=== PATIENT | female | born 1970 | race Caucasian/White ===

== ENCOUNTER 2020-06-17 02:38 | Emergency (ER) | payer SELFPAY ==
[2020-06-17 02:49] VITALS: BP 144/92; PULSE 94; RESP 16; TEMP 37; O2SAT 100
--- NOTE | 2020-06-17 02:53 | ED.GENADULT ---
HPI - General Adult General Chief complaint: Headache Stated complaint: Migraine Time Seen by Provider: 06/17/20 02:52 History of Present Illness HPI narrative: Patient 49-year-old female who presents to emergency department with chief complaint of migraine headache. The patient reports she has prior history of migraines reports that she has been taking p.o. Tylenol and p.o. Zofran at home without relief. Patient reports this is her typical bad migraine I denies any focal neurological deficits states that it is not the worst headache of her life. Patient reports the pain is very severe at this time. Related Data Allergies Allergy/AdvReac Type Severity Reaction Status Date / Time codeine Allergy Rash Verified 06/17/20 03:02 meperidine [From Demerol] Allergy Rash Verified 06/17/20 03:02 NSAIDS (Non-Steroidal Allergy Rash Verified 06/17/20 03:02 Anti-Inflamma Sulfa (Sulfonamide Allergy Rash Verified 06/17/20 03:02 Antibiotics) Review of Systems Review of Systems: Narrative: A 10 system review of systems was completed on the patient and is negative except for what is stated in the HPI. Nursing and ancillary documentation was reviewed. PMFSH Comments Past medical history significant for migraine headaches Social history the patient denies illicit drug use Exam Narrative: Exam Narrative: GENERAL: Well-appearing, well-nourished, and in no acute distress. HEAD: Normocephalic, atraumatic. EYES: PERRLA and EOMI. ENT: Nares clear, no rhinorrhea or epistaxis. Mucous membranes moist. NECK: Supple. CHEST: Clear to auscultation. No respiratory distress. HEART: Regular rate and rhythm. No murmur heard. Normal peripheral pulses. ABDOMEN: Soft, nontender, nondistended, normal active bowel sounds. EXTREMITIES: Normal range of motion. No edema. SKIN: Warm, dry, no rash. NEURO: No focal deficits. Alert and oriented x3. PSYCH: Normal mood and affect. Course Vital Signs Vital signs: Vital Signs Temperature 37.0 C 06/17/20 02:49 Pulse Rate 94 06/17/20 02:49 Respiratory Rate 16 06/17/20 02:49 Blood Pressure 144/92 H 06/17/20 02:49 Pulse Oximetry 100 06/17/20 02:49 Temperature 37.0 C 06/17/20 02:49 Pulse Rate 94 06/17/20 02:49 Respiratory Rate 16 06/17/20 02:49 Blood Pressure 144/92 H 06/17/20 02:49 Pulse Oximetry 100 06/17/20 02:49 Medical Decision Making Vital Signs Vital Signs: Vital Signs Temperature 37.0 C 06/17/20 02:49 Pulse Rate 94 06/17/20 02:49 Respiratory Rate 16 06/17/20 02:49 Blood Pressure 144/92 H 06/17/20 02:49 Pulse Oximetry 100 06/17/20 02:49 Temperature 37.0 C 06/17/20 02:49 Pulse Rate 94 06/17/20 02:49 Respiratory Rate 16 06/17/20 02:49 Blood Pressure 144/92 H 06/17/20 02:49 Pulse Oximetry 100 06/17/20 02:49 Discharge Plan Discharge Clinical Impression: Headache Qualifiers: Headache type: unspecified Headache chronicity pattern: unspecified pattern Intractability: not intractable Qualified Code(s): R51.9 - Headache, unspecified Patient Disposition: Home, Self-Care Condition: Stable Instructions: Antibiotic Form, Acute Headache (ED) Follow-up/Referrals: PHYSICIAN NOT ON STAFF,NONSTAFF [Non-Staff] -
[2020-06-17] MEDS: diphenhydrAMINE HCl INJ 50 MG/ML VIAL IM (03:11)
[2020-06-17] MEDS: KETOROLAC 30 MG/ML VIAL (*BKC) IM (03:11)
[2020-06-17] MEDS: PROCHLORPERAZINE EDISYLATE 10 MG/2 ML VIAL IM (03:13)
[2020-06-17 04:10] VITALS: BP 128/83; PULSE 81; RESP 16; TEMP 36.2; O2SAT 97
== END 2020-06-17 04:11 | disposition home or self-care (01) ==
PROVIDERS: Emergency Provider Emergency Medicine
DX: R51.9 Headache, unspecified (principal)
CPT/HCPCS: 96372; 99284; J0780; J1200; J1885

== ENCOUNTER 2022-12-21 12:31 | Emergency (ER) | payer OTHER, SELFPAY ==
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
--- NOTE | ~2022-12-21 | US_ITS ---
EXAMINATION: US venous doppler LE RT DATE: 12/21/2022 13:37 INDICATION: Right lower limb swelling TECHNIQUE: Cesar scale images without and with compression and Doppler images of the right lower extre mity veins were obtained. COMPARISON: None FINDINGS: The right common femoral vein, profunda femoral vein, femoral vein, popliteal vein, peronea l trunk, posterior tibial veins, and greater saphenous vein are patent. Right lower limb edema is not ed. IMPRESSION: 1. Patent right lower extremity veins. No evidence of deep venous thrombosis. Reviewed, dictated and finalized at location L. E SANDBLASTER
[2022-12-21 12:39] VITALS: BP 173/104; PULSE 87; RESP 18; TEMP 36.1; O2SAT 100
[2022-12-21] MEDS: HYDROcodone/acetaminophen (*CRX) 10-325 MG TABLET 1 TAB PO (15:04)
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
== END 2022-12-21 16:35 | disposition home or self-care (01) ==
PROVIDERS: Emergency Provider Student in an Organized Health Care Education/Training Program
DX: S42.442A Displaced fracture (avulsion) of medial epicondyle of left humerus, initial encounter for closed fracture (principal); S82.831A Other fracture of upper and lower end of right fibula, initial encounter for closed fracture; G62.9 Polyneuropathy, unspecified; M19.032 Primary osteoarthritis, left wrist; M19.042 Primary osteoarthritis, left hand; V47.5XXA Car driver injured in collision with fixed or stationary object in traffic accident, initial encounter
CPT/HCPCS: 29105; 29515; 73060; 73090; 73110; 73120; 73610; 73620; 73630; 93971; 99284; A4565; A9270

== ENCOUNTER 2023-09-07 22:21 | Emergency (ER) | payer SELFPAY ==
[2023-09-07 22:22] VITALS: BP 142/84; PULSE 109; RESP 17; TEMP 37.7; O2SAT 98
== END 2023-09-08 01:05 | disposition left against medical advice (07) ==
DX: M25.50 Pain in unspecified joint (principal)
CPT/HCPCS: 99199

== ENCOUNTER 2024-05-22 06:11 | Emergency (ER) | payer OTHER, SELFPAY ==
[2024-05-22] VITALS (19 sets, daily range): BP systolic 101–170; BP diastolic 69–110; PULSE 109–136; RESP 13–30; TEMP 36.3–36.8; O2SAT 92–100
--- NOTE | ~2024-05-22 | CT_ITS ---
EXAMINATION: CT brain wo con DATE: 05/22/2024 08:02 INDICATION: Syncope. Status post fall. TECHNIQUE: Computed tomography (CT) of the head was performed without intravenous contrast. The dose- length product was 605.33 mGy-cm. Automated exposure control and iterative reconstruction technique w ere employed. COMPARISON: 04/21/2012 FINDINGS: Brain parenchymal volume is normal for age. No acute infarction, hemorrhage, mass or mass e ffect. No ventriculomegaly or midline shift. Basilar cisterns are patent. Paranasal sinuses and masto ids are pneumatized. No depressed skull fractures. IMPRESSION: 1. No acute intracranial abnormality. Reviewed, dictated and finalized at location A.
--- NOTE | ~2024-05-22 | XR_ITS ---
Clinical Indication: Dizziness PA and lateral views of the chest: Comparison: 08/16/2013 Findings: The lungs are clear, without evidence of focal consolidation or pleural effusion. Cardiome diastinal silhouette is within normal limits. Bones and soft tissues are unremarkable. Impression: Normal chest. Reviewed, dictated and finalized at [facility]. Impression: Normal chest.
--- NOTE | ~2024-05-22 | CT_ITS ---
Clinical Indication: Syncope, right rib fractures CT Scan of the Chest, Abdomen, and Pelvis with Contrast: Technique: Contiguous sections were acquired throughout the chest, abdomen, and pelvis after intraven ous administration of 100 cc of Omnipaque 350. Dose reduction technique was used on this scan by tiny matos automated exposure control and iterative reconstruction technique. The dose-length product (DL P) was 347.18 mGy-cm. Findings: There is no evidence of any significant mediastinal, hilar or axillary lymphadenopathy. The mediastin al soft tissues appear normal. There is no evidence of pleural or pericardial effusion. Small right pneumothorax present. No suspicious pulmonary nodule or consolidation. There are acute fractures of the right seventh, eighth, ninth, 10th, 11th, and 12th ribs. Intrahepatic and extrahepatic biliary dilatation may be related to prior cholecystectomy. No hepatic mass evident otherwise. The spleen, pancreas, adrenals and kidneys are within normal limits. No evid ence of aortic aneurysm. No lymphadenopathy. No bowel obstruction or bowel wall thickening. Probable prior bariatric surgery. There is no evidence to suggest acute appendicitis. Urinary bladder is unremarkable. No pelvic mass seen. No ascites. Mild L1 compression deformity prese nt, likely chronic. Impression: Small right pneumothorax. Acute fractures right 7th-12th ribs. Intrahepatic and extra hepatic biliary dilatation may be related to prior cholecystectomy. Chronic L1 compression deformity. Reviewed, dictated and finalized at [facility]. Impression: Small right pneumothorax. Acute fractures right 7th-12th ribs. Intrahepatic and extra hepatic biliary dilatation may be related to prior julissa cystectomy. Chronic L1 compression deformity.
--- NOTE | ~2024-05-22 | XR_ITS ---
EXAM/PROCEDURE: XR chest-chest tube insert/pos - 05/22/2024 09:25 CDT HISTORY: 53 years old Female with chest tube insertion TECHNIQUE: Three view(s) of the chest. COMPARISON: 05/22/2024 FINDINGS: LUNGS/ PLEURA: No focal consolidation. No appreciable pneumothorax or large pleural effusion. Chest t ube in place. HEART/ MEDIASTINUM: Heart appears normal in size. BONES: No acute osseous abnormality. OTHER: Right upper quadrant cholecystectomy clips. Spinal stimulator lead is partially seen. Surgical clips in the left upper quadrant. IMPRESSION: Interval placement of right chest tube. No large right pneumothorax seen. Reviewed, dictated and finalized at location A.
--- OUTSIDE RECORDS SUMMARY | 2024-05-22 06:12 | XMS_ITS | Encounter Summary ---
Author Organization [facility] Address [address] [place] [id number] Care Team Providers Care Workers Compensation Paralegal Name Role Phone Donna Burton Opal PAROLE DIRECTOR Primary Care Provider [phone] Encounter Details Date Type Department Care Team (Latest Contact Info) Description 03/28/2024 TheMobileGamer (TMG) Message Enc [facility] [address] [place] [address] [place] Provider Diabetic Screening Social History Tobacco Use Types Packs/Day Years Used Date Smoking Tobacco: Never Passive Smoke Exposure: Never Smokeless Tobacco: Never Comments:Briefly as a dumb t een Alcohol Use Standard Drinks/Week Comments Yes 6.7 (1 standard drink = 0.6 oz p ure alcohol) social PHQ-2 Answer Date Recorded Patient Health Questionnaire-2 Score 4 03/26/2024 Comments Unknown Sex and Gender Information Value Date Recorded Sex Assigned at Female 03/12/2024 9:51 AM TITLE CLOSER Legal Sex Female 11:28 PM CDT Gender Identity Female 03/12/2024 9:51 AM TITLE CLOSER Sexual Orientation Straight 03/12/2024 9: 51 AM TITLE CLOSER documented as of this encounter Plan of Treatment Upcoming Encounters Date Type Department Care Team (Late st Contact Info) Description 05/27/2024 9:20 AM CDT Appointment [facility] [place] [address] [id number] Angelito Moore, HYDRODYNAMICIST [id number] [place] [address] [phone] (Work) 06/19/2024 10:20 AM CDT Office Visit [facility] - [place] [address] [place] [address] Donna Burton NP [address] [place] [address] 10/16/2024 2:00 PM CDT Office Visit [facility] - [facility] [address], [address] [place] [id number] Roney Roth MD [address] [place] [address] documented as of this encounter Visit Diagnoses Not on filedocumented in this encounter Additional Health Concerns Assessment Noted Time PHQ-9 Depression Total Score: 15 025 9:29 AM TITLE CLOSER documented as of this encounter Care Teams Workers Compensation Paralegal Relationship Specialty Start Date End Date Donna Burton NP [address] [place] [address] PCP - General NURSE PRACTITIONER 02/25/24 documented as of this encounter
--- OUTSIDE RECORDS SUMMARY | 2024-05-22 06:12 | XMS_ITS | CONTINUITY OF CARE DOCUMENT ---
Author Name spring londono Address Unknown Organization [facility] Address [address] [place] [address] Phone [phone] Care Team Providers Care Transfer And Pumphouse Operator Chief Name Role Phone Norris Moscoso MD Unavailable Norris Moscoso MD Unavailable [phone] INSURANCE PROVIDERS Payer name Policy type / Coverage type Akash red democrat ID [id number] [employer] ADVANTAGE O HMO [id number]
--- OUTSIDE RECORDS SUMMARY | 2024-05-22 06:12 | XMS_ITS | Clinical Summary ---
Author Organization [facility] Address [address] [facility] [address] [place] [address] Phone Care Team Providers Care Salad Counter Attendant Name Role Phone Donna Burton APRN, CNP Primary Care Provid er Deepak Damico MD Unavailable [phone] Allergies Active Allergy Reactions Criticality Noted Date Comments Codeine Itching,Rash Medium 11/16/2023 Nsaids Other (see Comments),Unknown 11/16/2023 Related to gastric bypass/ gastric ulcers Sulfa Antibiotics Rash Medium 11/16/2023 Medications Xyrem 500 MG/ML Solution 5 Active pantoprazole (PROTONIX) 40 MG Tablet Delayed Response Take 40 mg by mouth 2 times daily. 4 Active olmesartan (BENICAR) 20 MG Tablet Take 20 mg by mouth daily. 5 Active omeprazole (PriLOSEC) 40 MG CAPSULE DELAYED RELEASE Take 40 mg by mouth 2 times daily. 4 Active sucralfate (CARAFATE) 1 GM Tablet TAKE ONE TABLET BY MOUTH THREE TIMES DAILY, MORNING, MIDDAY & IN THE EVENING IN THE MORNING, AT MIDDAY, & AT BEDTIME FOR STOMACH Active Trulicity 0.75 MG/0.5ML Solution Auto-injector 0.75 mg by Subcutaneous route once a week. 5 Active famotidine (PEPCID) 20 MG Tablet Take 20 mg by mouth 2 times daily. 5 Active baclofen (LIORESAL) 10 MG Tablet Take 10 mg by mouth. 5 Active Active Problems Problem Noted Date Diagnosed Date Elevated blood pressure reading 04/04/2024 Iron deficiency anemia secondary to blood loss ( chronic) 04/04/2024 Encounters Date Type Department Care Team Description 04/11/2024 8:00 AM SECOND GRADE TEACHER Clinical Support [facility] [address] [phone] Iron deficiency anemia secondary to blood loss (chronic) (Primary Dx) 04/11/2024 Travel 04/04/2024 10:30 AM SECOND GRADE TEACHER Office Visit [facility] [address] [phone] Deepak Damico MD Iron deficiency anemia secondary to blood loss (chronic) (Primary Dx); Acute gastric ulcer with hemorrhage 04/04/2024 Travel from Last 3 Months Family History Medical History Relation Name Comments Cancer Maternal Grandmother urether a cancer Diabetes Mother Hypertension Mother Diabetes Sister 1 Relation Name Status Comments Child 1 Alive epilepsy and na rcolepsy Child 2 Alive Child 3 Alive Father Maternal Grandmother Mother Alive Sister 1 Alive Sister 2 Alive Social History Tobacco Use Types Packs/Day Years Used Date Smoking Tobacco: Never Smokeless Tobacco: Never Alcohol Use Standard Drinks/Week Comments Yes 0 (1 standard drink = 0.6 oz pur e alcohol) Comments Unknown Sex and Gender Information Value Date Recorded Sex Assigned at Not on file Legal Sex Female 11:05 PM CDT Gender Identity Not on file Sexual Orientation Not on file Last Filed Vital Signs Vital Sign Reading Time Taken Comments Blood Pressure 140/80 04/04/2024 11:26 AM SECOND GRADE TEACHER Pulse 78 04/04/2024 11:26 AM SECOND GRADE TEACHER Temperature 37 C (98.6 F) 04/04/2024 11:26 AM SECOND GRADE TEACHER Respiratory Rate 18 04/04/2024 11:26 AM SECOND GRADE TEACHER Oxygen Saturation 97% 04/04/2024 11:26 AM SECOND GRADE TEACHER Inhaled Oxygen Concentration - - Weight 72.3 kg (159 lb 4.8 oz) 04/04/2024 11:26 AM SECOND GRADE TEACHER Height 160 cm (5' 3 ) 04/04/2024 11:26 AM SECOND GRADE TEACHER Body Mass Index 28.22 04/04/2024 11:26 AM SECOND GRADE TEACHER Plan of Treatment Health Maintenance Due Date Last Done Comments TdaP Immunization 1970 Hepatitis B Immunization (1 of 3 - 19+ 3-dose series) 11/13/1990 Pap Smear 11/13/1992 Cervical Cancer Screening (CCS) 11/13/2001 HPV/Cotest 11/13/2001 Colonoscopy 11/13/2016 Colorectal Cancer Screening 11/13/2016 Cologuard 11/13/2021 Immunochemical Fecal Occult Blood 11/13/2021 Pneumococcal Immunization (5 0+ years) (2 of 2 - PCV) 11/13/2021 11/21/2011 Zoster Immunization (1 of 2) 11/13/2021 Influenza Immunization (#1) 2023 12/21/2010 SARS-COV-2 Immunization (1 - 2023- season) 2023 Mammogram 04/08/2025 04/08/2024, 04/08/2024 Respiratory Syncytial Virus (RSV) Immunization (Adult) (1 - 1-dose 75+ series) 11/13/2046 Hepatitis C Virus (HCV) Screening Completed 02/28/2024 Meningococcal Immunization (ACWY) Aged Out No longer eligible b ased on patient's age to complete this topic Rotavirus Immunization Aged Out No lo nger eligible based on patient's age to complete this topic Insurance [employer] Care Teams Salad Counter Attendant Relationship Specialty Start Date End Date Donna Burton APRN, SENIOR HUMAN RESOURCES REPRESENTATIVE [address] [place] [address] PCP - General Advanced Practice Nurse 03/10/24 Deepak Damico MD [address] [place] [phone] Oncology 03/17/24
--- OUTSIDE RECORDS SUMMARY | 2024-05-22 06:12 | XMS_ITS | Clinical Summary ---
Author Organization [facility] Address [address] [place] [address] Care Team Providers Care Physicist [employer]ogen[employer] Name Role Phone Donna Burton Primary Care Provider [phone] [facility],non-owned Affiliates and Associated Physician Practices is amultiple site organization consisting of ambulatory clinics and hospital sitesin [place], [place], [place] and [place]. This disclosure is being madepursuant to the Care Everywhere program and may not contain all information available regarding this patient. Last updated 17.[facility] Social & Loyal Allergies Active Allergy Reactions Criticality Noted Date Comments Codeine Rash,Itching Medium 11/16/2023 Meperidine Rash,Itching Medium 11/16/2023 Nsaids Other 11/16/2023 Related to gastric bypass/ gastric ulcers Sulfamethoxazole W-Trimethoprim Rash Medium 11/16/2023 Medications * Be aware that medications may not be up to date on this document. Alwaysverify current medications with the patient. Medication Sig Dispensed Refills Start Date End Date Status clomiPRAMINE (Anafranil) 25 MG capsule Take 1 (one) capsule by mouth 3 times daily Active sucralfate (Carafate) 1 GM tablet Take 1 (one) tablet by mouth 3 times daily before meals Active solriamfetol (Sunosi) 150 MG tablet Take 150 mg by mouth every morning Active Sodium Oxybate (XYREM PO) Take 3 g by mouth as directed Pt states she take Xyrem 3 gm .... As directed 3 times per night Active acetaminophen (Tylenol) 325 MG tablet Take 2 (two) tablets by mouth every 4 hours as needed for Fever (For temperature GREATER than 101 ) Maximum allowable Acetaminophen amount = 4 Grams (4000 mg) / 24 hours. 11/19/2023 Active omeprazole (PriLOSEC) 40 MG capsule Take 1 (one) capsule by mouth 2 times daily before breakfast and supper 60 capsule 11/19/2023 Active Active Problems Problem Noted Date Diagnosed Date Gastrointestinal hemorrhage, unspecified gastrointestinal hemorrhage type 11/15/2023 Social History Tobacco Use Types Packs/Day Years Used Date Smoking Tobacco: Never Smokeless Tobacco: Never Alcohol Use Standard Drinks/Week Comments Not Currently 0 (1 standard drink = 0.6 oz pur e alcohol) AUDIT-C Answer Date Recorded Q1: How often do you have a drink containing alc ohol? Monthly or less 11/16/2023 Q2: How many drinks containi ng alcohol do you have on a typical day when you are drinking? 1 or 2 11/16/2023 Q3: How often do you have si x or more drinks on one occasion? Never 11/16/2023 Overall Financial Resource Strain (CARDIA) Answe r Date Recorded How hard is it for you to pa y for the very basics like food, housing, medical care, and heating? Somewhat hard 11/16/2023 [facility] - Occupational Stress Questionnaire Answer Date Recorded Do you feel stress - tense, restless, nervous, or anxious, or unable to sleep at night because your mind is troubled all the time - these days? Very much 11/16/2023 Hunger Vital Sign Answer Date Recorded Within the past 12 months, y ou worried that your food would run out before you got the money to buy more. Never true Within the past 12 months, t he food you bought just didn't last and you didn't have money to get more. Sometimes true 05/2023 PRAPARE - Transportation Answer Date Re corded In the past 12 months, has l ack of transportation kept you from medical appointments or from getting medications? Yes 05/2023 In the past 12 months, has l ack of transportation kept you from meetings, work, or from getting things needed for daily living? Yes 11/16/2023 Housing Stability Vital Sign Answer Colt e Recorded In the last 12 months, was t here a time when you were not able to pay the mortgage or rent on time? Yes 11/16/2023 In the last 12 months, how many places have you lived? 2 11/16/2023 In the last 12 months, was t here a time when you did not have a steady place to sleep or slept in a long term (including now)? No 11/16/2023 Sex and Gender Information Value Date Recorded Sex Assigned at Not on file Gender Identity Not on file Sexual Orientation Not on file Last Filed Vital Signs Vital Sign Reading Time Taken Comments Blood Pressure 152/87 11/19/2023 12:13 PM CDT Pulse 92 11/19/2023 12:13 PM CDT Temperature 36.7 C (98.1 F) 11/19/2023 12:13 PM CDT Respiratory Rate 17 11/19/2023 12:13 PM CDT Oxygen Saturation 100% 11/19/2023 12:13 PM CDT Inhaled Oxygen Concentration - - Weight 69.4 kg (153 lb) 11/16/2023 12:27 PM CDT Height 160 cm (5' 3 ) 11/16/2023 12:27 PM CDT Body Mass Index 27.1 11/16/2023 12:27 PM CDT Plan of Treatment Upcoming Encounters Date Type Department Care Team (Late st Contact Info) Description 06/12/2024 3:20 PM CDT Office Visit [facility] [address] [place] [phone] Froy Brown MD [address] DIV OF PULMONARY/[place] [address] Health Maintenance Due Date Last Done Comments COLOGUARD (AGES 45-75) - COL ON CA SCREENING 1971 COLON MONITORING 1971 COLONOSCOPY - COLON CA SCREENING 1971 CT COLONOGRAPHY - COLON CA SCREENING 1971 Colorectal Cancer Screening 1971 FIT - COLON CA SCREENING 1971 FLEX SIG - COLON CA SCREENING 1971 MAMMOGRAM 1971 PAP SMEAR 1971 HIV SCREENING 11/13/1986 DTAP/TDAP/TD VACCINES (1 - Tdap) 11/13/1990 HEPATITIS B VACCINE (1 of 3 - 19+ 3-dose series) 11/13/1990 PNEUMOCOCCAL VACCINE 50+ (1 of 2 - PCV) 11/13/1990 ZOSTER VACCINE (1 of 2) 11/13/2021 COVID-19 VACCINE (1 - 2023-2 5 season) 2023 DEPRESSION SCREENING 02/13/2024 INFLUENZA VACCINE (Season Ended) 2024 LIPID TESTING 02/27/2029 02/28/2024 HEPATITIS C SCREENING Completed 02/28/2024 HIB VACCINE Aged Out No longer eligi ble based on patient's age to complete this topic HPV VACCINE Aged Out No longer eligi ble based on patient's age to complete this topic MENINGOCOCCAL (Group B) VACC INE SHARED DECISION-MAKING Aged Out No longer eligibl e based on patient's age to complete this topic MENINGOCOCCAL GROUPS A/C/Y/W VACCINE Aged Out No longer eligible b ased on patient's age to complete this topic Medical Devices Implanted Type Area Lab Support Tech Device Identifier Shelf Expiration Date Model / Serial / Lot Other (Type Not Listed)-02/13/2012 Implanted:2012 (Quantity not on file) Other (Type not listed) Hip Description:spinal stimulato r Advance Directives * Full Code (Latest Code Status on File) Date Activated Date Inactivated Comments 11/16/2023 3:13 AM 11/19/2023 6:33 PM Care Teams Physicist [employer]ogen[employer] Relationship Specialty Start Date End Date Donna Burton [address] [place] [address] PCP - General Molecular Technologist 03/12/24
--- OUTSIDE RECORDS SUMMARY | 2024-05-22 06:12 | XMS_ITS | Encounter Summary ---
Author Organization [facility] Address [address] [place] [address] Care Team Providers Care Pharmacy Grad Intern Name Role Phone Donna Burton Opal SPECTROSCOPIST Primary Care Provider [phone] Encounter Details Date Type Department Care Team (Latest Contact Info) Description 03/25/2024 Ziffi Message Enc [facility] [place] [address] [id number] Lam, [facility] Provider [facility] Social History Tobacco Use Types Packs/Day Years [...] Sex Assigned at Female 03/12/2024 9:51 AM [employer] Legal Sex Female 11:28 PM CDT Gender Identity Female 03/12/2024 9:51 AM [employer] Sexual Orientation Straight 03/12/2024 9: 51 AM [employer] documented as of this encounter Plan of Treatment Upcoming Encounters Date Type Department Care Team (Late st Contact Info) Description 05/27/2024 9:20 AM CDT Appointment [facility] [place] [address] [phone] Angelito Moore, [facility] [address] [phone] (Work) 06/19/2024 10:20 AM CDT Office Visit [facility] [address] [place] [address] Donna Burton NP [address] [place] [address] 10/16/2024 2:00 PM CDT [facility] [address], [address] [place] [phone] Roney Roth MD [address] [place] [address] documented as of this encounter Visit Diagnoses Not on filedocumented in this encounter Care Teams Pharmacy Grad Intern Relationship Specialty Start Date End Date Donna Burton SPECTROSCOPIST [address] [place] [address] PCP - General NURSE PRACTITIONER 02/25/24 documented as of this encounter
--- OUTSIDE RECORDS SUMMARY | 2024-05-22 06:12 | XMS_ITS | Patient Health Record ---
Author Organization [facility] Address [address] [place] [address] Care Team Providers Care Rackman Name Role Phone Brandon Gonzalez Unavailable [phone] Reason For Referral No Information Problems Problem Type SNOMED Code ICD Code Onset Dates Problem Status W/U Status Risk Notes Problem Chronic allergic conjunctivitis (48177460) Other chronic allergic conjunctivitis (H10.45) Active confirmed Problem Allergic rhinitis caused by pollen (disorder) (14762406) Allergic rhinitis due to pollen (J30.1) Active confirmed Problem Allergic rhinitis (32802083) Other allergic rhinitis (J30.89) Active confirmed Problem Chronic rhinitis (32741322) Chronic rhinitis (J31.0) Active confirmed Problem Uncomplicated mild persistent asthma (048065372) Mild persistent asthma, uncomplicated (J45.30) Active confirmed Problem Uncomplicated moderate persistent asthma (705315129) Moderate persistent asthma, uncomplicated (J45.40) Active confirmed Problem Uncomplicated severe persistent asthma (358829158) Severe persistent asthma, uncomplicated (J45.50) Active confirmed Problem Allergic rhinitis caused by animal hair and dander (491168730413045) Allergic rhinitis due to animal (cat) (dog) hair and dander (J30.81) Active confirmed Plan Of Treatment No Information Insurance Providers Payer Name Payer Address Payer Phone Subscriber Number Group Number Insured Name Patient Relationship to Insured Coverage Start Date Coverage End Date Zain[employer]etter [id number] Barbara Hathaway Self - patient is the insured
--- OUTSIDE RECORDS SUMMARY | 2024-05-22 06:13 | XMS_ITS | Clinical Summary ---
Author Organization [facility] Address Formerly [facility] [place] [address] Care Team Providers Care Job Service Specialist Name Role Phone Donna Bob Opal LITERACY SPECIALIST Primary Care Provider [phone] Allergies Active Allergy Reactions Criticality Noted Date Comments Codeine Itching,Rash Medium 11/16/2023 Meperidine Itching,Rash Medium 11/16/2023 Meperidine Hcl Vomiting 03/19/2024 Nsaids GI Bleed 11/16/2023 Related to gastric bypass/ gastric ulcers Sulfa Antibiotics Rash Medium 11/16/2023 Medications acetaminophen (TYLENOL) 325 MG tablet Take 2 tablets (650 mg total) by mouth every 4 (four) hours as needed. 024 Active XYREM 500 MG/ML Solution 025 Active SUNOSI 150 MG tablet Take 1 tablet (150 mg total) by mouth daily. Active rimegepant (NURTEC) 75 MG disintegrating tabletIndications :Migraine without aura and without status migrainosus, not intractable Take 1 tablet (75 mg total) by mouth every other day. For prevention 16 tablet 2 025 Active Fezolinetant (VEOZAH) 45 MG TabIndications:Po stmenopausal,Hot flashes Take 45 mg by mouth daily. 30 tablet 2 025 Active Blood Glucose Monitoring Suppl (ONE TOUCH ULTRA 2) w/Device KitIndications:Ty pe 2 diabetes mellitus with hyperglycemia, without long-term current use of insulin ([facility]) Check blood sugar twice a day before meals. 1 kit 025 Active Glucose Blood test stripIndications: Type 2 diabetes mellitus with hyperglycemia, without long-term current use of insulin ([facility]) Check blood sugar twice a day before meals. 300 strip 1 025 Active Lancets (ONETOUCH ULTRASOFT) lancetsIndication s:Type 2 diabetes mellitus with hyperglycemia, without long-term current use of insulin ([facility]) Check blood sugar twice a day before meals. 100 each 1 025 Active pantoprazole EC (PROTONIX) 40 MG tabletIndications :Chronic gastric ulcer with hemorrhage Take 1 tablet (40 mg total) by mouth 2 (two) times daily. 60 tablet 2 025 Active famotidine (PEPCID) 20 MG tabletIndications :Chronic gastric ulcer with hemorrhage Take 1 tablet (20 mg total) by mouth 2 (two) times daily. 60 tablet 2 025 Active FLUoxetine (PROZAC) 40 MG capsuleIndication s:Mixed obsessional thoughts and acts Take 1 capsule (40 mg total) by mouth daily. 30 capsule 2 025 Active sucralfate (CARAFATE) 1 G tabletIndications :Chronic gastric ulcer with hemorrhage Take 1 tablet (1 g total) by mouth 3 (three) times daily before meals. 90 tablet 2 025 Active triamcinolone (KENALOG) 0.1 % creamIndications: Pruritus Apply topically 2 (two) times daily as needed. 45 g 1 025 Active olmesartan (BENICAR) 40 MG tabletIndications :Primary hypertension Take 1 tablet (40 mg total) by mouth daily. 30 tablet 2 025 Active hydrOXYzine (ATARAX) 25 MG tabletIndications :Pruritus Take one tablet by mouth three times daily, morning, midday, and in the evening as needed for itching. 90 tablet 1 025 Active clomiPRAMINE (ANAFRANIL) 25 MG capsuleIndication s:Mixed obsessional thoughts and acts Take 1 capsule (25 mg total) by mouth 3 (three) times daily. 90 capsule 1 025 Active romosozumab-aqqg (EVENITY) 105 MG/1.17ML Solution Prefilled Syringe injectionIndicati ons:Compression fracture of T12 vertebra with routine healing, subsequent encounter,Age-rel ated osteoporosis with current pathological fracture, vertebra(e), initial encounter for fracture ([facility]) Inject 2.34 mLs (210 mg total) into the skin every 30 (thirty) days for 12 doses. 1.17 mL 6 025 2025 Active Additional Information Patient not taking.Reported on 05/15/2024 traMADol (ULTRAM) 50 MG tabletIndications :Chronic Pain Take 1 tablet (50 mg total) by mouth 3 (three) times daily as needed for Pain. Indications: Chronic Pain 90 tablet 025 Active cyclobenzaprine (FLEXERIL) 10 MG tabletIndications :Closed fracture of sacrum with delayed healing, unspecified fracture morphology, subsequent encounter,Chronic bilateral low back pain, unspecified whether sciatica present Take 1 tablet (10 mg total) by mouth 3 (three) times daily as needed for Muscle Spasms. 90 tablet 1 025 Active dulaglutide (TRULICITY) 1.5 MG/0.5ML injectionIndicati ons:Type 2 diabetes mellitus with hyperglycemia, without long-term current use of insulin ([facility]) Inject 1.5 mg into the skin once a week. 2 mL 3 025 Active Cholecalciferol (D3 1999) 50 MCG (1999 UT) CapIndications:Vi tamin D deficiency Take 2,000 Units by mouth daily. 90 capsule 1 025 Active HYDROcodone-aceta minophen (NORCO) 5-325 MG tabletIndications :Chronic Pain Take 1 tablet by mouth 3 (three) times daily as needed for Pain. Indications: Chronic Pain 60 tablet 025 Active baclofen (LIORESAL) 10 MG tabletIndications :Chronic bilateral low back pain, unspecified whether sciatica present Take 1 tablet (10 mg total) by mouth 3 (three) times daily. 90 tablet 1 025 2024 Discontinued glipiZIDE (GLUCOTROL) 5 MG tabletIndications :Type 2 diabetes mellitus with hyperglycemia, without long-term current use of insulin ([facility]) Take 1 tablet (5 mg total) by mouth every morning before breakfast. Has tolerated sulfonylurea in the past without issue 30 tablet 1 025 2024 Discontinued dulaglutide (TRULICITY) 0.75 MG/0.5ML injectionIndicati ons:Type 2 diabetes mellitus with hyperglycemia, without long-term current use of insulin ([facility]) Inject 0.75 mg into the skin once a week for 30 days. 2 mL 025 2024 Discontinued TRULICITY 0.75 MG/0.5ML injectionIndicati ons:Type 2 diabetes mellitus with hyperglycemia, without long-term current use of insulin ([facility]) Inject 0.5 mL (0.75 mg) by subcutaneous injection every 7 days. 2 mL 025 2024 Discontinued Hospital, Clinic, or Other Facility Administered Medication Ordered Dose Route Frequency Start Date End Date Status ketorolac (TORADOL) injection 60 mgIndications:Closed fracture of sacrum with delayed healing, unspecified fracture morphology, subsequent encounter,Chronic bilateral low back pain, unspecified whether sciatica present 60 mg IM Once 05/15/2024 05/15/2024 Ended methylPREDNISolone acetate (DEPO-Medrol) injection 40 mgIndications:Closed fracture of sacrum with delayed healing, unspecified fracture morphology, subsequent encounter,Chronic bilateral low back pain, unspecified whether sciatica present 40 mg IM Once 05/15/2024 05/15/2024 Ended Active Problems Problem Noted Date Diagnosed Date Age-related osteoporosis wit h current pathological fracture, vertebra(e), initial encounter for fracture ([facility]) 04/25/2024 Compression fracture of T12 vertebra with routine healing, subsequent encounter 04/25/2024 Closed fracture of sacrum wi th delayed healing, unspecified fracture morphology, subsequent encounter 04/17/2024 Iron deficiency anemia, unspecified 03/12/2024 History of cholecystectomy 02/27/2024 Migraine without aura and wi thout status migrainosus, not intractable 02/27/2024 Primary narcolepsy without cataplexy ([facility]) 0 02/27/2024 Chronic bilateral low back p ain, unspecified whether sciatica present 02/27/2024 History of Bianca-en-Y gastric bypass 02/27/2024 Other chronic allergic conju nctivitis, unspecified laterality 02/27/2024 History of GI bleed 02/27/2024 Anxiety 02/27/2024 Major depressive disorder, recurrent episode, mo derate 02/27/2024 Mixed obsessional thoughts and acts 02/27/2024 Battery end of life of spinal cord stimulator Chronic gastric ulcer with hemorrhage 02/27/2024 Bilateral bunions 02/27/2024 Type 2 diabetes mellitus wit h hyperglycemia, without long-term current use of insulin ([facility]) 02/27/2024 Anemia, unspecified type 02/27/2024 Vitamin D deficiency 02/27/2024 Cardiac murmur 02/27/2024 Primary hypertension 02/27/2024 Encounters Date Type Department Care Team Description 05/19/2024 Telephone [facility] Medical [facility] [place] [id number] [facility] [address] [place] [address] Donna Bob, RODRIGO Medication Request 05/16/2024 Orders Only [facility] [place] [id number] [facility] [address] [place] [address] Donna Bob, RODRIGO 05/15/2024 6:10 PM CDT - 05/15/2024 11:59 PM CDT Hospital Encounter [facility] [address] [place] [address] Donna Bob, LITERACY SPECIALIST Discharge Disposition: Home or Self Care (Routine Discharge) 05/15/2024 8:20 AM CDT Office [facility] [place] [address] [facility] [address] [place] [address] Donna Bob, RODRIGO Follow Up ([facility]) 05/15/2024 - 05/15/2024 6:09 PM CDT Hospital Encounter [facility] [address] [place] [address] Discharge Disposition: Home or Self Care (Routine Discharge) 05/15/2024 Orders Only [facility] [address] [facility] [address] [place] [address] Michelle Andrews MA 05/15/2024 Travel 05/13/2024 Telephone [facility] [address] [facility] [address] [place] [address] Donna Bob, LITERACY SPECIALIST Error 05/13/2024 MyChart Message Enc [facility] [place] [phone] [place] [address] [place] [address] Donna Bob, LITERACY SPECIALIST Back pain 05/12/2024 8:51 AM CDT - 05/12/2024 11:59 PM CDT Hospital Encounter [facility] [address] [place] [address] [address] Donna Bob, LITERACY SPECIALIST Discharge Disposition: Home or Self Care (Routine Discharge) 05/12/2024 Travel 04/28/2024 Telephone [facility] [place] [address] [place] [address] [place] [address] Donna Bob, LITERACY SPECIALIST Medication Information 04/25/2024 Telephone [facility] [place] [address] [place] [address] [place] [address] Donna Bob, LITERACY SPECIALIST Medication Information 04/25/2024 Telephone [facility] [place] [address] [place] [address] [place] [address] Donna Bob, LITERACY SPECIALIST Records 04/25/2024 Orders Only [facility] [place] [address] [place] [address] [place] [address] Donna Bob, LITERACY SPECIALIST 04/25/2024 Orders Only [facility] - [place] [phone] [place] [address] [place] [address] Donna Bob, LITERACY SPECIALIST 04/21/2024 9:38 AM CDT - 04/21/2024 11:59 PM CDT [place] [address] [facility] [place] [address] Donna Bob, LITERACY SPECIALIST Discharge Disposition: Home or Self Care (Routine Discharge) 04/21/2024 Telephone [facility] [place] [address] [facility] [address] [place] [address] Donna Bob, RODRIGO Medication 04/21/2024 Travel 04/18/2024 Telephone [facility] [place] [address] [facility] [address] [place] [address] Donna Bob, RODRIGO Medication 04/17/2024 8:00 AM AGRICULTURE CONSULTANT [facility] [place] [address] [facility] [address] [place] [address] Donna Bob, RODRIGO Diabetes ([facility]I) 04/17/2024 Travel 04/10/2024 Orders Only [facility] [place] [address] Non-Staff, Provider 04/09/2024 Orders Only [facility] [place] [address] [facility] [address] [place] [address] Donna Bob, LITERACY SPECIALIST 04/08/2024 10:32 AM AGRICULTURE CONSULTANT - 04/08/2024 11:59 PM AGRICULTURE CONSULTANT Hospital Encounter [facility] [address] [place] [address] Donna Bob, LITERACY SPECIALIST Discharge Disposition: Home or Self Care (Routine Discharge) 04/08/2024 Travel 04/04/2024 9:00 AM AGRICULTURE CONSULTANT Treatment [facility] [place] [address] Donna Bob, LITERACY SPECIALIST 04/04/2024 Scan [facility] Scanned, [facility] 04/04/2024 Travel 04/02/2024 Scan [facility] Scanned, [facility] 03/31/2024 Telephone [facility] [place] [address] [facility] [address] [place] [address] Donna Bob, LITERACY SPECIALIST Insurance 03/28/2024 MyChart Message Enc [facility] Medical [facility] - [place] [phone] [facility] [address] [place] [address] [facility] Provider Diabetic Screening 03/26/2024 8:00 AM AGRICULTURE CONSULTANT Office Visit [facility] Medical [facility] - [place] [phone] [facility] [address] [place] [address] Donna Bob, RODRIGO Anemia; Blood Pressure; Diabetes 03/26/2024 - 03/26/2024 11:59 PM AGRICULTURE CONSULTANT Hospital Encounter [facility] [address] Donna Bob, RODRIGO Discharge Disposition: Home or Self Care (Routine Discharge) 03/26/2024 Travel 03/25/2024 MyChart Message Enc [facility] [place] [address] [phone] [facility] Provider PAIN MANAGEMENT CLINIC 03/21/2024 8:00 AM AGRICULTURE CONSULTANT Treatment [facility] [place] [address] Donna Bob, LITERACY SPECIALIST 03/21/2024 Travel 03/20/2024 MyChart Message Enc [facility] Medical [facility] - [place] [phone] [facility] [address] [place] [address] Donna Bob, RODRIGO GI referral 03/19/2024 Travel 03/18/2024 MyChart Message Enc [facility] Medical [facility] - [place] [phone] [facility] [address] [place] [address] Donna Bob, LITERACY SPECIALIST Pharmacy 03/18/2024 Orders Only [facility] Medical [facility] - [place] [address] [place] [address] Donna Bob, LITERACY SPECIALIST 03/17/2024 Telephone [facility]ty [place] [address] [facility] [address] [place] [address] Donna Bob, LITERACY SPECIALIST Question 03/12/2024 6:01 PM AGRICULTURE CONSULTANT - 03/12/2024 11:59 PM AGRICULTURE CONSULTANT Hospital Encounter [facility] [address] [place] [address] Donna Bob, LITERACY SPECIALIST Discharge Disposition: Home or Self Care (Routine Discharge) 03/12/2024 9:40 AM AGRICULTURE CONSULTANT Office [facility] [place] [address] [facility] [address] [place] [address] Donna Bob, LITERACY SPECIALIST Physical 03/12/2024 Orders Only [facility] [place] [address] Donna Bob, LITERACY SPECIALIST 03/12/2024 Travel 03/12/2024 MyChart Message Enc [facility] [place] [address] [phone] [facility] Provider Pain Management Referral 03/04/2024 Scan [employer] INFO SRVCS Scanned, [facility] 03/03/2024 Telephone [facility] [place] [address] [address] [facility] [address] [place] [address] Donna Bob, LITERACY SPECIALIST Medication 03/02/2024 Misc Documentation [facility] [place] [address] [address] [facility] [address] [place] [address] Donna Bob, LITERACY SPECIALIST 02/28/2024 5:57 PM AGRICULTURE CONSULTANT - 02/28/2024 11:59 PM AGRICULTURE CONSULTANT Hospital Encounter [facility] [address] [place] [address] Donna Bob, LITERACY SPECIALIST Discharge Disposition: Home or Self Care (Routine Discharge) 02/28/2024 10:00 AM AGRICULTURE CONSULTANT Allied Health/Nurse [facility] [place] [address] [place] [address] Donna Bob NP Allied Health Visit (Fasting labs) 02/28/2024 - 02/28/2024 5:56 PM AGRICULTURE CONSULTANT [facility] [address] Donna Bob NP Discharge Disposition: Home or Self Care (Routine Discharge) 02/28/2024 Travel 02/27/2024 10:20 AM AGRICULTURE CONSULTANT [facility] [place] [address] [place] [address] Donna Bob, RODRIGO New Patient 02/27/2024 Travel from Last 3 Months Family History Medical History Relation Comments Cancer Maternal Grandfather Brain cancer Maternal Grandmother Depression Mother Diabetes Mother Hypertension Mother Mental Health Mother Breast Cancer Neg Hx Relation Status Comments Maternal Grandfather Maternal Grandmother Mother Social History Tobacco Use Types Packs/Day Years Used Date Smoking Tobacco: Never Passive Smoke Exposure: Never Smokeless Tobacco: Never Tobacco Cessation:Counseling Given: No Comments:Briefly as a dumb teen Alcohol Use Standard Drinks/Week Comments Yes 6.7 (1 standard drink = 0.6 oz p ure alcohol) social PHQ-2 Answer Date Recorded Patient Health Questionnaire-2 Score 2 04/17/2024 Comments Unknown Sex and Gender Information Value Date Recorded Sex Assigned at Female 03/12/2024 9:51 AM AGRICULTURE CONSULTANT Legal Sex Female 11:28 PM CDT Gender Identity Female 03/12/2024 9:51 AM AGRICULTURE CONSULTANT Sexual Orientation Straight 03/12/2024 9: 51 AM AGRICULTURE CONSULTANT Last Filed Vital Signs Vital Sign Reading Time Taken Comments Blood Pressure 140/100 05/15/2024 9:29 AM CDT Pulse 136 05/15/2024 9:29 AM CDT apical, regular Temperature 36.4 C (97.6 F) 05/15/2024 8:34 AM CDT Respiratory Rate 16 05/15/2024 8:34 AM CDT Oxygen Saturation 100% 05/15/2024 8:3 4 AM CDT Inhaled Oxygen Concentration - - Weight 65 kg (143 lb 6.4 oz) 05/15/2024 8:34 AM CDT Height 160 cm (5' 3 ) 05/15/2024 8:34 AM CDT Body Mass Index 25.4 05/15/2024 8:34 AM CDT Plan of Treatment Upcoming Encounters Date Type Department Care Team (Late st Contact Info) Description 05/27/2024 9:20 AM CDT Appointment [facility] [place] [address] [phone] Angelito Moore, FRONT OFFICE SUPERVISOR [address] [facility] [address] [place] [address] [phone] (Work) 06/19/2024 10:20 AM CDT Office Visit [facility] Medical [facility] - [place] [address] [place] [address] Donna Bob, LITERACY SPECIALIST [address] [place] [address] 10/16/2024 2:00 PM CDT [facility] [address] [facility], [address] [place] [address] Roney Roth MD [address] [place] [address] Health Maintenance Due Date Last Done Comments Cervical Cancer Screening Pa p Smear (Age 30 to 64) Every 3 Years 1971 Colorectal Cancer Screening Colonoscopy (10 Years) 1971 Annual Physical 11/13/1974 Diabetes: Retinopathy Eye Exam 11/13/1989 Hepatitis B Vaccines (1 of 3 - 19+ 3-dose series) 11/13/1990 Cervical Cancer Screening Pa p with HPV Testing (Age 30 to 64) Every 5 Years 11/13/2001 Cervical Cancer Screening wi th HPV 11/13/2001 DTaP, Tdap and Td Vaccines ( 1 - Tdap) 05/04/2007 05/03/2007 Pneumococcal Vaccine: Pediatrics (0 to 5 Years) and At-Risk Patients (6 to 64 Years) (2 of 2 - PCV) 11/20/2012 11/21/2011 Zoster Vaccines (1 of 2) 11/13/2021 COVID-19 Vaccine (2 - 2023-2 5 season) 2023 11/26/2020 Hemoglobin A1C 2024 05/15/2024, 02/28/2024, 11/16/2023 Kidney Health Evaluation 02/27/2025 02/28/2024 Lipid Panel 02/27/2025 02/28/2024, 06/11/2008 Mammogram Screening 05/12/2026 05/12/2024, 04/08/2024 Hepatitis C Completed 02/28/2024 PHQ-2 (Physician Unga) Completed 04/17/2024 Meningococcal B Vaccine Aged Out No l onger eligible based on patient's age to complete this topic Meningococcal Vaccine Aged Out No lemuel karina eligible based on patient's age to complete this topic RSV Immunizations Under 20 Months Aged Out No longer eligible b ased on patient's age to complete this topic Procedures Procedure Name Priority Date/Time Associated Diagnosis Comments MG/PCCL UDS SCREEN Routine 05/16/2024 9: 14 AM CDT Drug therapy FERRITIN Routine 05/15/2024 9:39 AM CDT Iron deficiency anemia due to chronic blood loss TRANSFERRIN Routine 05/15/2024 9:39 AM CDT Iron deficiency anemia due to chronic blood loss CBC W/DIFF AUTOMATED Routine 05/15/2024 9:38 AM CDT Iron deficiency anemia due to chronic blood loss IRON SAT PANEL (IRON,IBC,%SAT) Routine 05/15/2024 9:38 AM CDT Iron deficiency anemia due to chronic blood loss COMPREHENSIVE METABOLIC PANEL Routine 05/15/2024 9:38 AM CDT Type 2 diabetes mellitus with hyperglycemia, without long-term current use of insulin ([facility]) HEMOGLOBIN, GLYCOSYLATED Routine 05/15/2024 9:38 AM CDT Type 2 diabetes mellitus with hyperglycemia, without long-term current use of insulin ([facility]) US BREAST LT BIRAD LTD NAMAN 05/12/2024 9:58 AM CDT Abnormal mammogram MG DIAG W MARIE BILAT DIGI NAMAN 05/12/2024 9:17 AM CDT Abnormal mammogram Mass of right breast, unspecified quadrant CT LUMB SPINE WO CON Routine 04/21/2024 9:54 AM CDT Chronic bilateral low back pain, unspecified whether sciatica present Battery end of life of spinal cord stimulator BONE DENSITY/DEXA Routine 04/08/2024 12: 21 PM AGRICULTURE CONSULTANT Screening for osteoporosis MG SCREENING W MARIE BETHANY DIGI Routine 04/08/2024 12:15 PM AGRICULTURE CONSULTANT Screening mammogram for breast cancer URINE BACTERIA CULTURE Routine 03/26/2024 11:33 AM AGRICULTURE CONSULTANT Dysuria XR LUMB SPINE 3V Routine 03/26/2024 9:34 AM AGRICULTURE CONSULTANT Battery end of life of spinal cord stimulator Chronic bilateral low back pain, unspecified whether sciatica present URINALYSIS AUTO DIP Routine 03/26/2024 Dysuria CBC W/DIFF AUTOMATED Routine 03/12/2024 10:53 AM AGRICULTURE CONSULTANT Iron deficiency anemia, unspecified iron deficiency anemia type Chronic gastric ulcer with hemorrhage COLLECTION VENOUS BLOOD VENIPUNCTURE Routine 02/28/2024 11:14 AM AGRICULTURE CONSULTANT Type 2 diabetes mellitus with hyperglycemia, without long-term current use of insulin ([facility]) CBC W/DIFF AUTOMATED Routine 02/28/2024 11:14 AM AGRICULTURE CONSULTANT Anemia, unspecified type COMPREHENSIVE METABOLIC PANEL Routine 02/28/2024 11:14 AM AGRICULTURE CONSULTANT Encounter to establish care LIPID PANEL Routine 02/28/2024 11:14 AM AGRICULTURE CONSULTANT Encounter to establish care Examination, medical, general TSH W/REFLEX Routine 02/28/2024 11:14 AM AGRICULTURE CONSULTANT Examination, medical, general VITAMIN D, 25 OH Routine 02/28/2024 11:1 4 AM AGRICULTURE CONSULTANT Vitamin D deficiency URINALYSIS, AUTO, COMPLETE Routine 02/28/2024 11:14 AM AGRICULTURE CONSULTANT Examination, medical, general HEPATITIS C ANTIBODY Routine 02/28/2024 11:14 AM AGRICULTURE CONSULTANT Need for hepatitis C screening test VITAMIN B-12 Routine 02/28/2024 11:14 AM AGRICULTURE CONSULTANT History of Bianca-en-Y gastric bypass FOLIC ACID SERUM Routine 02/28/2024 11:1 4 AM AGRICULTURE CONSULTANT History of Bianca-en-Y gastric bypass IRON SAT PANEL (IRON,IBC,%SAT) Routine 02/28/2024 11:14 AM AGRICULTURE CONSULTANT Anemia, unspecified type TRANSFERRIN Routine 02/28/2024 11:14 AM AGRICULTURE CONSULTANT Anemia, unspecified type FERRITIN Routine 02/28/2024 11:14 AM AGRICULTURE CONSULTANT Anemia, unspecified type ALBUMIN URINE RANDOM W/CREATININE Routine 02/28/2024 11:14 AM AGRICULTURE CONSULTANT Type 2 diabetes mellitus with hyperglycemia, without long-term current use of insulin (CMS/HCC HHS/HCC) HEMOGLOBIN, GLYCOSYLATED Routine 02/28/2024 11:14 AM AGRICULTURE CONSULTANT Type 2 diabetes mellitus with hyperglycemia, without long-term current use of insulin (CMS/HCC HHS/HCC) from Last 3 Months Results * (ABNORMAL) MG/PCCL UDS SCREEN (05/16/2024 9:14 AM CDT) FENTANYL SCREEN (U) NEGATIVE <0.5 ng/mL [facility] Comment: See Note A See Note A MORPHINE (U) NEGATIVE <10 ng/mL [facility] Comment: See Note A See Note A AMPHETAMINES PM NEGATIVE <500 ng/mL [facility] Comment: See Note A See Note A BARBITURATES PM (U) NEGATIVE <300 ng/mL [facility] Comment: See Note A See Note A BENZODIAZEPINES PM (U) NEGATIVE <100 ng/mL [facility] Comment: See Note A See Note A COCAINE METABOLITE PM (U) NEGATIVE <150 ng/mL [facility] Comment: See Note A See Note A MARIJUANA METABOLITE PM (U) POSITIVE(A) <20 ng/mL [facility] Comment: See Note A See Note A METHADONE PM (U) NEGATIVE <100 ng/mL [facility] Comment: See Note A See Note A OPIATES PM (U) NEGATIVE <100 ng/mL [facility] Comment: See Note A See Note A OXYCODONE PM (U) NEGATIVE <100 ng/mL [facility] Comment: See Note A See Note A CREATININE RANDOM (U) 63.0 > or = 20.0 mg/dL [facility] pH PM (U) 6.9 4.5 - 9.0 [facility] OXIDANT NEGATIVE <200 mcg/mL [facility] NOTE [facility] Comment: This drug testing is for medical treatment only. Analysis was performed as non-forensic testing and these results should be used only by healthcare providers to render diagnosis or treatment, or to monitor progress of medical conditions. Note A: The results are presumptive; based only on screening methods, and they have not been confirmed by a definitive method. LDT Notes: Confirmation tests were developed and their analytical performance characteristics have been determined by [employer]. It has not been cleared or approved by the FDA. This assay has been validated pursuant to the CLIA regulations and is used for clinical purposes. Healthcare Providers needing Interpretation assistance, please contact us at [phone] ( ) M-F, 8am to 10pm EST URINE SPECIMEN / Unknown 05/16/2024 9:14 AM CDT 05/17/2024 1:09 AM CDT Narrative Resulting Agency Comment Performing Organization Information: Site ID: [id number] Name: [facility] Address: [address] [place] [address] Director: Zane Sheppard Site ID: [id number] Name: [facility] Address: [address] [place] [address] Director: Tim Huynh MD Donna Bob NP URINE ORDERABLES Final Resu lt Performing Organization Address City/[facility]/ZIP Co de Phone Number [facility] [place] [address] [place] [address] [facility] [address] [place] [address], * TRANSFERRIN (05/15/2024 9:39 AM CDT) Only the most recent of2 resultswithin the time period is included. TRANSFERRIN 279 200 - 360 mg/dL 05/15/2024 9:19 PM CDT [facility] 05/15/2024 9:39 AM CDT Donna Bob NP LABORATORY Final Resul t Performing Organization Address [facility] Co de Phone Number [facility] [address] [place] [address], [phone] * (ABNORMAL) FERRITIN (05/15/2024 9:39 AM CDT) Only the most recent of2 resultswithin the time period is included. FERRITIN 382.0(H) 8 - 252 NG/ML 05/15/2024 5:59 PM CDT [facility] 05/15/2024 9:39 AM CDT Donna Bob NP LABORATORY Final Resul t Performing Organization Address City/[facility]/ZIP Co de Phone Number [facility] [address] [place] [address], [place] [phone] * (ABNORMAL) HEMOGLOBIN, GLYCOSYLATED (05/15/2024 9:38 AM CDT) Only the most recent of2 resultswithin the time period is included. HGB A1C 6.0 4.5 - 6.2 % 05/15/2024 4:05 PM CDT [facility] ESTIMATED AVG GLUCOSE 126(H) 74 - 106 MG/DL 05/15/2024 4:05 PM CDT [facility] 05/15/2024 9:38 AM CDT Donna Bob NP LABORATORY Final Resul t Performing Organization Address [facility] Co de Phone Number [place] [address] [place] [address], [place] [phone] * IRON SAT PANEL (IRON,IBC,%SAT) (05/15/2024 9:38 AM CDT) Only the most recent of2 resultswithin the time period is included. IRON 138 50 - 170 MCG/DL 05/15/2024 3:28 PM CDT [facility] IRON BINDING CAPACITY 323 250 - 450 MCG/DL 05/15/2024 3:28 PM CDT [facility] IRON SATURATION 43 % 3:28 PM CDT [facility] Comment:REFERENCE RANGE NOT ESTABLISHED 05/15/2024 9:38 AM CDT us Donna Bob NP LABORATORY Final Resul t Performing Organization Address [facility] Co de Phone Number [facility] [address] [place] [address], [place] [phone] * (ABNORMAL) COMPREHENSIVE METABOLIC PANEL (05/15/2024 9:38 AM CDT) Only the most recent of2 resultswithin the time period is included. [facility] SODIUM S/P/B 137 136 - 145 MMOL/L 05/15/2024 3:28 PM CDT [facility] POTASSIUM S/P/B 4.0 3.5 - 5.1 MMOL/L 05/15/2024 3:28 PM CDT [facility] CHLORIDE S/P/B 96(L) 98 - 107 MMOL/L 05/15/2024 3:28 PM CDT [facility] CO2 30.4 21 - 32 MMOL/L 05/15/2024 3:28 PM CDT [facility] GLUCOSE 203(H) 70 - 99 MG/DL 05/15/2024 3:28 PM CDT [facility] BUN 10 7 - 18 MG/DL 05/15/2024 3:28 PM CDT [facility] CREATININE S/P/B 0.81 0.55 - 1.02 MG/DL 05/15/2024 3:28 PM CDT [facility] CALCIUM S/P/B 9.2 8.4 - 10.5 MG/DL 05/15/2024 3:28 PM CDT [facility] BILIRUBIN TOTAL S/P/B 1.1(H) 0.2 - 1.0 MG/DL 05/15/2024 3:28 PM CDT [facility] ALKALINE PHOSPHATASE S/P/B 433(H) 41 - 108 U/L 05/15/2024 3:28 PM CDT [facility] AST 52(H) 15 - 37 U/L 05/15/2024 3:28 PM CDT [facility] ALT 122(H) 14 - 59 U/L 05/15/2024 3:28 PM CDT [facility] TOTAL PROTEIN S/P/B 7.3 6.4 - 8.2 G/DL 05/15/2024 3:28 PM CDT [facility] ALBUMIN S/P/B 3.9 3.4 - 5.0 G/DL 05/15/2024 3:28 PM CDT [facility] ANION GAP 10.6 5 - 15 MMOL/L 05/15/2024 3:28 PM CDT [facility] Comment:REFERENCE RANGE NOT ESTABLISHED OSMOLALITY (CALC) 289 MOSM/KG 025 3:28 PM CDT [facility] Comment:REFERENCE RANGE NOT ESTABLISHED GFR ESTIMATE 87(L) >90 ML/MIN/1. 73 M2 05/15/2024 3:28 PM CDT [facility] GFR NOTES GFR REFERENCE S: 05/15/2024 3:28 PM CDT [facility] Comment: THE ESTIMATED GFR IS CALCULATED USING THE 2020 CKD-EPI EQUATION. THE FOLLOWING CATEGORIES FOR GRADING RENAL FUNCTION ARE RECOMMENDED BY THE INTERNATIONAL SOCIETY OF NEPHROLOGY (KDIGO 2012 CLINICAL PRACTICE GUIDELINE). G1,NORMAL OR HIGH: >89 ml/min/1.73 m2 G2,MILDLY DECREASED: 60-89 ml/min/1.73 m2 G3A,MILDLY TO MODERATELY DECREASED: 45-59 ml/min/1.73 m2 G3B,MODERATELY TO SEVERELY DECREASED: 30-44 ml/min/1.73 m2 G4,SEVERELY DECREASED: 15-29 ml/min/1.73 m2 G5,KIDNEY FAILURE: <15 ml/min/1.73 m2 05/15/2024 9:38 AM CDT us Donna Bob NP LABORATORY Final Resul t [facility] [address] [place] [address], * (ABNORMAL) CBC W/DIFF AUTOMATED (05/15/2024 9:38 AM CDT) Only the most recent of3 resultswithin the time period is included. WBC 3.97(L) 4.00 - 10.80 x10'3/uL 05/15/2024 6:36 PM CDT [facility] RBC 5.58(H) 4.10 - 5.40 x10'6/uL 05/15/2024 6:36 PM CDT [facility] HGB 13.6 12.0 - 16.0 G/DL 05/15/2024 6:36 PM CDT [facility] HCT 43.5 36.0 - 47.0 % 05/15/2024 6:36 PM CDT [facility] MCV 78.0 78.0 - 100.0 FL 05/15/2024 6:36 PM CDT [facility] MCH 24.4(L) 27.0 - 31.0 PG 05/15/2024 6:36 PM CDT [facility] MCHC 31.3(L) 33.0 - 36.0 G/DL 05/15/2024 6:36 PM CDT [facility] PLT 409(H) 150 - 350 x10'3/uL 05/15/2024 6:36 PM CDT [facility] MPV 9.6 7.4 - 10.4 FL 05/15/2024 6:36 PM CDT [facility] DIFFERENTIAL TYPE AUTOMATED DIFFERENTIAL 05/15/2024 7:20 PM CDT [facility] SEG NEUTROPHILS 61.8 % 7:20 PM CDT [facility] LYMPHOCYTES 27.0 % 05/15/2024 7:20 PM CDT [facility] MONOCYTES 10.1 % 05/15/2024 7:20 PM CDT [facility] EOSINOPHILS 0.0 % 05/15/2024 7:20 PM CDT [facility] BASOPHILS 0.8 % 05/15/2024 7:20 PM CDT [facility] IMMATURE GRANS % 0.3 % 05/16/19 7:20 PM CDT [facility] ABS. NEUTROPHILS 2.46 1.60 - 8.30 x10'3/uL 05/15/2024 7:20 PM CDT [facility] ABS. LYMPHOCYTES 1.07 0.80 - 4.70 x10'3/uL 05/15/2024 7:20 PM CDT [facility] ABS. MONOCYTES 0.40 0.00 - 1.50 x10'3/uL 05/15/2024 7:20 PM CDT [facility] ABS. EOSINOPHILS 0.00 0.00 - 0.40 x10'3/uL 05/15/2024 7:20 PM CDT [facility] ABS. BASOPHILS 0.03 0.00 - 0.20 x10'3/uL 05/15/2024 7:20 PM CDT [facility] ABS. IMMATURE GRANULOCYTES 0.01 0.00 - 0.03 x10'3/uL 05/15/2024 7:20 PM CDT [facility] ABS. NUCLEATED RBC'S 0.00 0.00 - 0.01 x10'3/uL 05/15/2024 7:20 PM CDT [facility] NRBC % 0.0 % 05/15/2024 7:20 PM CDT [facility] RBC MORPHOLOGY SLIDE REVIEWED 2024 7:20 PM CDT [facility] ANISO MODERATE 05/15/2024 7:20 PM CDT [facility] POIKLO MODERATE 05/15/2024 7:20 PM CDT [facility] HYPOCHROMASIA SLIGHT 05/15/2024 7:20 PM CDT [facility] MICRO SLIGHT 05/15/2024 7:20 PM CDT [facility] POLY MODERATE 05/15/2024 7:20 PM CDT [facility] OVALOCYTES PRESENT 05/15/2024 7:20 PM CDT [facility] TARGET CELLS PRESENT 05/15/2024 7:20 PM CDT [facility] ACANTHOCYTES PRESENT 05/15/2024 7:20 PM CDT [facility] PLT EST. INCREASED 05/15/2024 7:20 PM CDT [facility] 05/15/2024 9:38 AM CDT us Donna Bob LITERACY SPECIALIST LABORATORY Final Resul t [facility] [address] [place] [address], [id number] * BREAST LT [employer] (05/12/2024 9:58 AM CDT) Anatomical Region Laterality Modality Breast Left Ultrasound 05/12/2024 9:53 AM CDT Impressions 05/12/2024 10:06 AM CDT ===== IMPRESSION: ===== 1. No mammographic findings suggestive of malignancy. Dense glandular tissue and left breast cyst. Assessment: ACR BI-RADS CATEGORY 2 - BENIGN FINDING(S) Recommendation: 1: Routine screening mammogram bilateral in 1 year Comments: Results and recommendations discussed with the patient in person by Dr. Arce. Technologist, Lexy, tanvi. Ordered By: DONNA BOB Interpreted By: Stuart Arce, 05/12/2024 9:53 AM Narrative 05/12/2024 10:06 AM CDT [facility] [address] [place] [address] Examination: Diagnostic bilateral mammogram and left breast ultrasound [id number] Exam Date/Time: 05/12/2024 9:03 AM Reason For Exam: Bilateral breast asymmetries Comparison: 04/08/2024 Technique: Bilateral diagnostic mammography and left breast ultrasound including sonographic grayscale images projections targeted in the region of interest. Doppler used to assess vasculature. 3D tomographic images were obtained. Tissue density: The breast tissue is heterogeneously dense. Findings: Mammogram: Right lower breast asymmetry resolves with spot compression. No abnormality seen in this location on the true lateral images. Left upper outer quadrant asymmetry corresponds to an area of very dense glandular tissue in this quadrant. Small underlying mass suspected. This is further evaluated with ultrasound. Leftbreast ultrasound: 1:00 to 2:00 position 8 cm from the nipple: Dense glandular tissue is identified. No underlying mass. 2:00 position 7 cm from the nipple: Anechoic ovoid circumscribed mass compatible with benign cyst. Distal acoustic enhancement. This measures 8 x 8 x 3 mm. No specific follow-up necessary. Procedure Note Stuart Arce MD - 05/12/2024 [facility] [address] [place] [address] Examination: Diagnostic bilateral mammogram and left breast ultrasound [id number] Exam Date/Time: 05/12/2024 9:03 AM Reason For Exam: Bilateral breast asymmetries Comparison: 04/08/2024 Technique: Bilateral diagnostic mammography and left breast ultrasoundincluding sonographic grayscale images projections targeted in the regionof interest. Doppler used to assess vasculature. 3D tomographic images were obtained. Tissue density: The breast tissue is heterogeneously dense. Findings: Mammogram: Right lower breast asymmetry resolves with spot compression. Noabnormality seen in this location on the true lateral images. Left upper outer quadrant asymmetry corresponds to an area of very denseglandular tissue in this quadrant. Small underlying mass suspected. Thisis further evaluated with ultrasound. Leftbreast ultrasound: 1:00 to 2:00 position 8 cm from the nipple: Denseglandular tissue is identified. No underlying mass. 2:00 position 7 cm from the nipple: Anechoic ovoid circumscribed masscompatible with benign cyst. Distal acoustic enhancement. This measures 8x 8 x 3 mm. No specific follow-up necessary. ===== IMPRESSION: ===== 1. No mammographic findings suggestive of malignancy. Dense glandulartissue and left breast cyst. Assessment: ACR BI-RADS CATEGORY 2 - BENIGN FINDING(S) Recommendation: 1: Routine screening mammogram bilateral in 1 year Comments: Results and recommendations discussed with the patient in personby Dr. Arce. Technologist, Lexy, tanvi. Ordered By: DONNA BOB Interpreted By: Stuart Arce, 05/12/2024 9:53 AM us Donna Bob LITERACY SPECIALIST ULTRASOUND Final Resul t * MG DIAG W MARIE BILAT DIGI (05/12/2024 9:17 AM CDT) Anatomical Region Laterality Modality Breast Bilateral Mammography 05/12/2024 9:53 AM CDT Impressions 05/12/2024 10:06 AM CDT ===== IMPRESSION: ===== 1. No mammographic findings suggestive of malignancy. Dense glandular tissue and left breast cyst. Assessment: ACR BI-RADS CATEGORY 2 - BENIGN FINDING(S) Recommendation: 1: Routine screening mammogram bilateral in 1 year Comments: Results and recommendations discussed with the patient in person by Dr. Arce. Technologist, Lexy, tanvi. Ordered By: ODNNA BOB Interpreted By: Stuart Arce, 05/12/2024 9:53 AM Narrative 05/12/2024 10:06 AM CDT [facility] [address] [place] [address] Examination: Diagnostic bilateral mammogram and left breast ultrasound [id number] Exam Date/Time: 05/12/2024 9:03 AM Reason For Exam: Bilateral breast asymmetries Comparison: 04/08/2024 Technique: Bilateral diagnostic mammography and left breast ultrasound including sonographic grayscale images projections targeted in the region of interest. Doppler used to assess vasculature. 3D tomographic images were obtained. Tissue density: The breast tissue is heterogeneously dense. Findings: Mammogram: Right lower breast asymmetry resolves with spot compression. No abnormality seen in this location on the true lateral images. Left upper outer quadrant asymmetry corresponds to an area of very dense glandular tissue in this quadrant. Small underlying mass suspected. This is further evaluated with ultrasound. Leftbreast ultrasound: 1:00 to 2:00 position 8 cm from the nipple: Dense glandular tissue is identified. No underlying mass. 2:00 position 7 cm from the nipple: Anechoic ovoid circumscribed mass compatible with benign cyst. Distal acoustic enhancement. This measures 8 x 8 x 3 mm. No specific follow-up necessary. us Donna Bob LITERACY SPECIALIST MAMMO Final Resul t * CT LUMB SPINE WO CON (04/21/2024 9:54 AM CDT) Anatomical Region Laterality Modality Spine Computed Tomogra phy 04/24/2024 8:28 AM CDT Impressions 04/24/2024 8:43 AM CDT IMPRESSION: 1. Stable postoperative changes of posterior decompression and fixation at L4-S1. Spinal stimulator leads entering the dorsal central canal and tracking cephalad at the T11/T12 level. 2. Mild chronic appearing anterior wedge compression fracture of T12, new compared to the prior CT 2008. No acute osseous abnormality 3. Mild bilateral foraminal stenosis at L3/L4 due to disc bulging and facet arthropathy, increased compared to the prior CT of 2008. Mild bilateral foraminal stenosis at L1/L2 and L2/L3 is unchanged. 4. Mild central canal stenosis at L1/L2 due to small posterior disc/osteophyte complex, unchanged. Referred By: DONNA BOB Interpreted By: Erick Li MD, 04/24/2024 8:28 AM Narrative 04/24/2024 8:43 AM CDT [facility] [address] [place] [address] EXAMINATION:Lum[address] without contrast 04/21/2024 INDICATION:Chronic back pain, prior surgery and spinal stimulator TECHNIQUE: Axial CT images of the lumbar spine were acquired without intravenous contrast. Sagittal and coronal reformats were constructed. Radiation dose reduction techniques were used. COMPARISON: Lumbar spine CT without contrast 01/14/2009 FINDINGS:The last fully formed disc space is presumed represent L5/S1. Posterior cole and pedicle screw fixation hardware is noted at 10 L4-S1. Interbody spacer at the L4/L5 and L5/S1. Left hemilaminectomy defect at L4/L5 and L5/S1. There appear to been prior left-sided facetectomy the L4/L5 and L5/S1. There is bony fusion of the L4/L5 and L5/S1 disc spaces and facet joints. Hardware appears to be intact and unremarkable in alignment with no surrounding lucency. The S1 screws protrusion 10 mm anterior to the anterior margin of S1, unchanged. 2 spinal stimulator leads are partially visualized entering the dorsal central canal at the T11/T12 level and tracks cephalad. There is a mild anterior wedging and loss of height of the T12 vertebral body, new compared to prior CT.. The lumbar spine is in anatomic alignment. No acute fracture or dislocation. The sacral joint spaces are unremarkable. No spondylolisthesis. No suspicious focal bony lesion. T12/L1: Disc space narrowing L1/L2: Disc space narrowing with small broad-based posterior disc/osteophyte complex causing mild central canal stenosis, unchanged L2/L3: Disc space narrowing disc bulging causing mild bilateral foraminal stenosis, unchanged L3/L4: Mild disc bulging and facet arthropathy causing mild bilateral foraminal stenosis, mildly increased compared to the prior CT L4/L5: Negative L5/S1: Negative. No paraspinal mass or fluid collection. The visualized abdominal aorta is unremarkable in contour. Surgical clips are noted within the gallbladder fossa. The generator device with the spinal stimulator is seen within the dorsal left lumbosacral region. Surgical clips are also noted within the bilateral adnexal regions. Procedure Note Erick Li MD - 04/24/2024 [facility] [address] [facility] [place] [address] EXAMINATION:Lumbar [address] without contrast 04/21/2024 INDICATION:Chronic back pain, prior surgery and spinal stimulator TECHNIQUE: Axial CT images of the lumbar spine were acquired withoutintravenous contrast. Sagittal and coronal reformats were constructed.Radiation dose reduction techniques were used. COMPARISON: Lumbar spine CT without contrast 01/14/2009 FINDINGS:The last fully formed disc space is presumed represent L5/S1.Posterior cole and pedicle screw fixation hardware is noted at 10 L4-S1.Interbody spacer at the L4/L5 and L5/S1. Left hemilaminectomy defect atL4/L5 and L5/S1. There appear to been prior left-sided facetectomy theL4/L5 and L5/S1. There is bony fusion of the L4/L5 and L5/S1 disc spacesand facet joints. Hardware appears to be intact and unremarkable inalignment with no surrounding lucency. The S1 screws protrusion 10 mmanterior to the anterior margin of S1, unchanged. 2 spinal stimulator leads are partially visualized entering the dorsalcentral canal at the T11/T12 level and tracks cephalad. There is a mild anterior wedging and loss of height of the T12 vertebralbody, new compared to prior CT.. The lumbar spine is in anatomicalignment. No acute fracture or dislocation. The sacral joint spaces areunremarkable. No spondylolisthesis. No suspicious focal bony lesion. T12/L1: Disc space narrowing L1/L2: Disc space narrowing with small broad-based posteriordisc/osteophyte complex causing mild central canal stenosis, unchanged L2/L3: Disc space narrowing disc bulging causing mild bilateral foraminalstenosis, unchanged L3/L4: Mild disc bulging and facet arthropathy causing mild bilateralforaminal stenosis, mildly increased compared to the prior CT L4/L5: Negative L5/S1: Negative. No paraspinal mass or fluid collection. The visualized abdominal aorta isunremarkable in contour. Surgical clips are noted within the gallbladderfossa. The generator device with the spinal stimulator is seen within thedorsal left lumbosacral region. Surgical clips are also noted within thebilateral adnexal regions. IMPRESSION: 1. Stable postoperative changes of posterior decompression and fixationat L4-S1. Spinal stimulator leads entering the dorsal central canal andtracking cephalad at the T11/T12 level. 2. Mild chronic appearing anterior wedge compression fracture of T12, newcompared to the prior CT 2008. No acute osseous abnormality 3. Mild bilateral foraminal stenosis at L3/L4 due to disc bulging andfacet arthropathy, increased compared to the prior CT of 2008. Mildbilateral foraminal stenosis at L1/L2 and L2/L3 is unchanged. 4. Mild central canal stenosis at L1/L2 due to small posteriordisc/osteophyte complex, unchanged. Referred By: DONNA BOB Interpreted By: Erick Li MD, 04/24/2024 8:28 AM Donna Bob LITERACY SPECIALIST CT Final Resul t * BONE DENSITY/DEXA (04/08/2024 12:21 PM AGRICULTURE CONSULTANT) Anatomical Region Laterality Modality Bone Bone Density 04/09/2024 5:54 AM AGRICULTURE CONSULTANT Impressions 04/09/2024 5:55 AM AGRICULTURE CONSULTANT IMPRESSION: WHO Classification: Osteoporosis RECOMMENDATIONS: All patients should ensure an adequate intake of dietary calcium and vitamin D. The NOF recommend adults under the age of 50 need 1000 mg of calcium and 400-800 IU of vitamin D daily. Effective therapy for the prevention and treatment of osteoporosis include bisphosphonates. Follow-up: People with diagnosed cases of osteoporosis or at high risk for fracture should have regular bone mineral density test. For patients eligible for Medicare, routine testing is allowed once every 2 years. Testing frequency can be increased to one year for patients who have rapidly progressing disease, those who are receiving or discontinuing medical therapy to restore bone mass, or have additional risk factors. Referred By: DONAN BOB Interpreted By: Iglesia Bright MD, 04/09/2024 5:54 AM Narrative 04/09/2024 5:55 AM AGRICULTURE CONSULTANT [facility] [address] [place] [address] EXAMINATION: BONE DENSITY/DEXA INDICATIONS: Screening for osteoporosis TECHNIQUE: DEXA bone mineral density evaluation was performed in the AP projection over the lumbar spine and both hips utilizing standard imaging techniques. ASSESSMENT: The BMD measured at the AP spine L1-L3 is 1.115 g/cm? with a T-score of 0.9. The BMD measured at the left femoral neck is 0.631 g/cm? with a T-score of -2.0. The BMD measured at the left hip is 0.891 g/cm? with a T-score of -0.4. The BMD measured at the right femoral neck is 0.615 g/cm? with a T-score of - 2.1. The BMD measured at the right hip is 0.869 g/cm? with a T-score of -0.6. The BMD measured at the distal third of right forearm is 0.574 g/cm? with a T- score of -1.9. The BMD measured at the total right forearm is 0.414 g/cm? with a T-score of - 2.9. FRAX 10-year fracture risk: Major Osteoporotic Fracture: 6.6% Hip Fracture: 0.8% Procedure Note Iglesia Bright MD - 04/09/2024 [facility] [address] [place] [address] EXAMINATION: BONE DENSITY/DEXA INDICATIONS: Screening for osteoporosis TECHNIQUE: DEXA bone mineral density evaluation was performed in the APprojection over the lumbar spine and both hips utilizing standard imagingtechniques. ASSESSMENT: The BMD measured at the AP spine L1-L3 is 1.115 g/cm? with a T-score of0.9. The BMD measured at the left femoral neck is 0.631 g/cm? with a T-score of-2.0. The BMD measured at the left hip is 0.891 g/cm? with a T-score of -0.4. The BMD measured at the right femoral neck is 0.615 g/cm? with a T-scoreof -2.1. The BMD measured at the right hip is 0.869 g/cm? with a T-score of -0.6. The BMD measured at the distal third of right forearm is 0.574 g/cm? witha T- score of -1.9. The BMD measured at the total right forearm is 0.414 g/cm? with a T-scoreof - 2.9. FRAX 10-year fracture risk: Major Osteoporotic Fracture: 6.6% Hip Fracture: 0.8% IMPRESSION: WHO Classification: Osteoporosis RECOMMENDATIONS: All patients should ensure an adequate intake of dietary calcium andvitamin D. The NOF recommend adults under the age of 50 need 1000 mg ofcalcium and 400-800 IU of vitamin D daily. Effective therapy for theprevention and treatment of osteoporosis include bisphosphonates. Follow-up: People with diagnosed cases of osteoporosis or at high risk for fractureshould have regular bone mineral density test. For patients eligible forMedicare, routine testing is allowed once every 2 years. Testing frequencycan be increased to one year for patients who have rapidly progressingdisease, those who are receiving or discontinuing medical therapy torestore bone mass, or have additional risk factors. Referred By: DONNA BOB Interpreted By: Iglesia Bright MD, 04/09/2024 5:54 AM us Donna Bob LITERACY SPECIALIST DEXA Final Resul t * MG SCREENING W MARIE BETHANY DIGI (04/08/2024 12:15 PM AGRICULTURE CONSULTANT) Anatomical Region Laterality Modality Breast Bilateral Mammography 04/25/2024 7:28 AM CDT Impressions 04/25/2024 7:33 AM CDT IMPRESSION: Right inferior breast mass seen clearly only on MLO images. Left upper outer quadrant focal asymmetry. Recommendation: 1. Additional Imaging, Bilateral Assessment: ACR BI-RADS 0 - INCOMPLETE: NEEDS ADDITIONAL IMAGING EVALUATION Ordered By: DONNA BOB Interpreted By: Stuart Arce, 04/25/2024 7:28 AM Narrative 04/25/2024 7:33 AM CDT [facility] [address] [place] [address] Examination: Screening bilateral mammogram Exam Date/Time: 04/08/2024 10:43 AM Clinical history: Prior benign right biopsy 1998, no current complaints. Comparison: 04/06/2018 Technique: Digital screening mammography of both breasts was performed. Breast tomosynthesis acquisitions were obtained and reviewed. This study was read with the assistance of a computer-aided detection system. Tissue density: The breasts are heterogeneously dense, which may obscure small masses. Findings: Right inferior breast mass seen clearly only on MLO images. Left upper outer quadrant focal asymmetry. This could relate to dense glandular tissue or underlying mass. Benign-appearing scattered calcifications bilaterally. Donna Bob NP MAMMO Final Resul t * URINE BACTERIA CULTURE (03/26/2024 11:33 AM AGRICULTURE CONSULTANT) SPEC DESCRIPTION URINE CLEAN CATCH 03/26/2024 11:34 AM AGRICULTURE CONSULTANT [facility] SPECIAL REQUESTS NO SPECIAL REQUEST 03/26/2024 11:34 AM AGRICULTURE CONSULTANT [facility] CULTURE RESULT NO GROWTH (< OR = 1,000 CFU/ML) 03/28/2024 11:37 AM AGRICULTURE CONSULTANT [facility] URINE SPECIMEN OBTAINED BY CLEAN CATCH PROCEDURE / Unknown 03/26/2024 11:33 AM AGRICULTURE CONSULTANT 03/26/2024 5:25 PM AGRICULTURE CONSULTANT Donna Bob NP MICROBIOLOGY - GENERAL ORDE RABLES Final Result [facility] [address] [place] [address], [id number] * XR LUMB SPINE 3V (03/26/2024 9:34 AM AGRICULTURE CONSULTANT) Anatomical Region Laterality Modality Spine Radiographic Susannah ging 03/28/2024 7:59 PM AGRICULTURE CONSULTANT Impressions 03/28/2024 8:02 PM AGRICULTURE CONSULTANT IMPRESSION: 1. Post surgical and multilevel degenerative changes in the lumbar spine, as above. Ordered By: DONNA BOB Interpreted By: Wild Watsno MD, 03/28/2024 7:59 PM Narrative 03/28/2024 8:02 PM AGRICULTURE CONSULTANT [facility] - [address] [address] Examination: X-ray lumbar spine, 3 views. Exam time: 03/26/2024 9:22 AM Clinical history: Back pain. Comparison: 01/14/2009 Technique: Frontal, lateral, lumbosacral views of the lumbar spine were obtained. Findings: There are 6 nonrib-bearing vertebral levels designated as L1-L6 with the lumbosacral junction designated as L6-S1. Post surgical changes of multilevel posterior fusion of L5-L6-S1. There is a nondisplaced fracture involving one of the S1 fixation screws, seen only on the lateral view. Spinal stimulator evident with leads extending into the mid thoracic spine. Slight retrolisthesis of L2 on L3. Multilevel degenerative changes in the lumbar spine with disc degeneration, endplate osteophytes, and facet hypertrophy noted. Surgical clips at the GE junction. Cholecystectomy clips. Additional surgical clips and christy in the left para midline abdomen. Procedure Note Wild Watson MD - 03/28/2024 [facility] [place] [address] Examination: X-ray lumbar spine, 3 views. Exam time: 03/26/2024 9:22 AM Clinical history: Back pain. Comparison: 01/14/2009 Technique: Frontal, lateral, lumbosacral views of the lumbar spine wereobtained. Findings: There are 6 nonrib-bearing vertebral levels designated as L1-L6 with thelumbosacral junction designated as L6-S1. Post surgical changes ofmultilevel posterior fusion of L5-L6-S1. There is a nondisplaced fractureinvolving one of the S1 fixation screws, seen only on the lateral view.Spinal stimulator evident with leads extending into the mid thoracicspine. Slight retrolisthesis of L2 on L3. Multilevel degenerative changesin the lumbar spine with disc degeneration, endplate osteophytes, andfacet hypertrophy noted. Surgical clips at the GE junction.Cholecystectomy clips. Additional surgical clips and christy in the leftpara midline abdomen. IMPRESSION: 1. Post surgical and multilevel degenerative changes in the lumbar spine,as above. Ordered By: DONNA BOB Interpreted By: Wild Watson MD, 03/28/2024 7:59 PM us Donna Bob NP GENERAL IMAGING Final Resul t * (ABNORMAL) URINALYSIS AUTO DIP (03/26/2024) COLOR (U) YELLOW YELLOW [address], [facility] CLEAR CLEAR MG-[address], [place] GLUCOSE (U) 250 mg/dl(A) NEGATIVE MG/DL MG-[address], [place] BILIRUBIN (U) TRACE(A) NEGATIVE MG-[address], [place] KETONES MG/DL (U) 5 (TRACE)(A) NEGATIVE MG/DL MG-[address], [place] SPECIFIC GRAVITY (U) 1.020 1.001 - 1.035 MG-[address], [place] BLOOD (U) NEGATIVE NEGATIVE MG-[address], [place] U PH 7.0 5.0 - 9.0 MG-[address], [place] PROTEIN (U) NEGATIVE NEGATIVE mg/dL MG-[address], [facility] UROBILINOGEN 2.0(A) 0.2 - 1.0 EU/dL = mg/dL MG-[address], [place] NITRITES NEGATIVE NEGATIVE MG/DL MG-[address], [place] LEUKOCYTES (U) NEGATIVE NEGATIVE MG-[address], [place] URINE SPECIMEN OBTAINED BY CLEAN CATCH PROCEDURE / Unknown 03/26/2024 Donna Bob NP URINE ORDERABLES Final Resu lt Performing Organization Address City/[facility]/ZIP Co de Phone Number MG-[address], [place] [address] [place] [address], * TSH W/REFLEX (02/28/2024 11:14 AM AGRICULTURE CONSULTANT) TSH 1.017 0.358 - 3.740 uIU/ML 02/28/2024 3:46 PM AGRICULTURE CONSULTANT MG-DEENA NOONAN 02/28/2024 11:1 4 AM AGRICULTURE CONSULTANT Donna Bob NP LABORATORY Final Resul t -[facility] [place] [address] [place] [address], * (ABNORMAL) URINALYSIS (02/28/2024 11:14 AM AGRICULTURE CONSULTANT) COLOR (U) YELLOW 02/28/2024 3:19 PM [facility] TRANSPARENCY CLEAR CLEAR 02/28/2024 3:19 PM AGRICULTURE CONSULTANT [facility] SPECIFIC GRAVITY (U) 1.015 1.003 - 1.040 02/28/2024 3:19 PM AGRICULTURE CONSULTANT [facility] U PH 6.5 5.0 - 9.0 02/28/2024 3:19 PM AGRICULTURE CONSULTANT [facility] PROTEIN RANDOM (U) NEGATIVE NEGATIVE 02/28/2024 3:19 PM [facility] GLUCOSE (U) TRACE(A) NEGATIVE 02/28/2024 3:19 PM [facility] KETONES MG/DL (U) TRACE(A) NEGATIVE 02/28/2024 3:19 PM [facility] BILIRUBIN (U) 1+(A) NEGATIVE 02/28/2024 3:19 PM [facility] BLOOD (U) NEGATIVE NEGATIVE 02/28/2024 3:19 PM [facility] UROBILINOGEN 4.0(H) 0.0 - 2.0 EU/DL 02/28/2024 3:19 PM [facility] NITRITES NEGATIVE NEGATIVE 02/28/2024 3:19 PM [facility] LEUKOCYTES (U) TRACE(A) NEGATIVE 02/28/2024 3:19 PM [facility] RBC/HPF 0-3 0 - 3 /HPF 02/28/2024 3:19 PM [facility] WBC/HPF 0-3 0 - 3 /HPF 02/28/2024 3:19 PM AGRICULTURE CONSULTANT [facility] EPI/HPF 4-9 /HPF 02/28/2024 3:19 PM AGRICULTURE CONSULTANT [facility] BACTERIA (U) NONE SEEN NONE SEEN 02/28/2024 3:19 PM AGRICULTURE CONSULTANT [facility] URINE SPECIMEN OBTAINED BY CLEAN CATCH PROCEDURE / Unknown 02/28/2024 11:14 AM AGRICULTURE CONSULTANT Donna Bob NP URINE ORDERABLES Final Resu lt Performing Organization Address [facility]/ZIP Co de Phone Number [facility] [address] [place] [address], [place] [phone] * VITAMIN B-12 (02/28/2024 11:14 AM AGRICULTURE CONSULTANT) VITAMIN B12 S/P/B 657 193 - 986 PG/ML 02/28/2024 3:46 PM AGRICULTURE CONSULTANT [facility] 02/28/2024 11:1 4 AM AGRICULTURE CONSULTANT us Donna Bob NP LABORATORY Final Resul t Performing Organization Address [facility]/ZIP Co de Phone Number [address] [address], [place] [phone] * ALBUMIN URINE RANDOM W/CREATININE (02/28/2024 11:14 AM AGRICULTURE CONSULTANT) MICROALBUMIN (U) 11.6 <20 MG/L 02/27/19 25 3:36 PM AGRICULTURE CONSULTANT [facility] CREATININE RANDOM (U) 121.3 MG/DL 02/28/2024 3:36 PM AGRICULTURE CONSULTANT [facility] ALBUMIN/CREAT RATIO 9.6 <30 MG/G 02/28/2024 3:36 PM AGRICULTURE CONSULTANT [facility] URINE SPECIMEN / Unknown 02/28/2024 11:14 AM AGRICULTURE CONSULTANT Donna Bob NP URINE ORDERABLES Final Resu lt [facility] [place] [address] [place] [address], [place] [phone] * (ABNORMAL) LIPID PANEL (02/28/2024 11:14 AM AGRICULTURE CONSULTANT) CHOLESTEROL 175 <200 MG/DL 02/28/2024 3:46 PM AGRICULTURE CONSULTANT [facility] TRIGLYCERIDES 68 <150 MG/DL 02/28/2024 3:46 PM AGRICULTURE CONSULTANT [facility] HDL 61 >40 MG/DL 02/28/2024 3:46 PM AGRICULTURE CONSULTANT [facility] LDL-C 100(H) <100 MG/DL 02/28/2024 3:46 PM AGRICULTURE CONSULTANT [facility] VLDL CALCULATION 14 5 - 28 MG/DL 02/28/2024 3:46 PM AGRICULTURE CONSULTANT [facility] CHOL/HDL RATIO 2.9 0.0 - 4.0 02/28/2024 3:46 PM AGRICULTURE CONSULTANT [facility] LDL/HDL 1.6 0.41 - 2.13 02/28/2024 3:46 PM AGRICULTURE CONSULTANT [facility] NON HDL CHOLESTEROL 114 <140 MG/DL 02/28/2024 3:46 PM AGRICULTURE CONSULTANT [facility] 02/28/2024 11:1 4 AM AGRICULTURE CONSULTANT Donna Bob NP LABORATORY Final Resul t [facility] [place] [id number] [place] [address], [place] [phone] * HEPATITIS C ANTIBODY (02/28/2024 11:14 AM AGRICULTURE CONSULTANT) HEPATITIS C AB NON-REACTI VE NON-REACT GUY 02/28/2024 7:33 PM AGRICULTURE CONSULTANT [facility] Comment: ANTIBODIES TO HCV NOT DETECTED. DOES NOT EXCLUDE THE POSSIBILITY OF EXPOSURE TO HCV. 02/28/2024 11:1 4 AM AGRICULTURE CONSULTANT Donna Bob NP LABORATORY Final Resul t Performing Organization Address City/[facility]/ZIP Co de Phone Number [facility] [address] [place] [address], [place] [phone] * FOLIC ACID SERUM (02/28/2024 11:14 AM AGRICULTURE CONSULTANT) FOLATE >20.0 8.6 - 58.9 NG/ML 02/28/2024 3:33 PM AGRICULTURE CONSULTANT [facility] 02/28/2024 11:1 4 AM AGRICULTURE CONSULTANT Donna Bob NP LABORATORY Final Resul t Performing Organization Address [facility] Co de Phone Number [address] [address], [place] [phone] * (ABNORMAL) VITAMIN D, 25 [place] (02/28/2024 11:14 AM AGRICULTURE CONSULTANT) VITAMIN D 25 HYDROXY TOTAL S/P/B 27.8(L) 30 - 100 NG/ML 02/28/2024 3:46 PM AGRICULTURE CONSULTANT [facility] Comment: DEFICIENT <20 INSUFFICIENT 20-30 SUFFICIENT 30-100 02/28/2024 11:1 4 AM AGRICULTURE CONSULTANT us Donna Bob NP LABORATORY Final Resul t Performing Organization Address City/[facility] Co de Phone Number [address] [address], [place] [phone] from Last 3 Months Insurance [employer] Care Teams Job Service Specialist Relationship Specialty Start Date End Date Donna Bob, RODRIGO [address] [facility] [address] [place] [address] PCP - General NURSE PRACTITIONER 02/25/24
--- OUTSIDE RECORDS SUMMARY | 2024-05-22 06:13 | XMS_ITS | Encounter Summary ---
Author Organization [facility] Address [address] [place] [address] Care Team Providers Care Life Skills Consultant Name Role Phone Donna Burton Opal POLICE SPECIALIST Primary Care Provider [phone] Encounter Details Date Type Department Care Team (Latest Contact Info) Description 03/12/2024 [employer] Message Enc [facility] [place] [address] [phone] [facility] Referral Social History Tobacco Use Types Packs/Day Years Used Date Smoking Tobacco: Never Passive Smoke Exposure: Never Smokeless Tobacco: Never Comments:Briefly as a dumb t een Alcohol Use Standard Drinks/Week Comments Yes 6.7 (1 standard drink = 0.6 oz p ure alcohol) social Comments Unknown Sex and Gender Information Value Date Recorded Sex Assigned at Female 03/12/2024 9:51 AM CLERK TRAVEL RESERVATIONS Legal Sex Female 11:28 PM CDT Gender Identity Female 03/12/2024 9:51 AM CLERK TRAVEL RESERVATIONS Sexual Orientation Straight 03/12/2024 9: 51 AM CLERK TRAVEL RESERVATIONS documented as of this encounter Plan of Treatment Upcoming Encounters Date Type Department Care Team (Late st Contact Info) Description 05/27/2024 9:[address] [facility] [place] [address] [phone] Angelito Moore, HOP PICKER [address] [facility] [id number] [place] [phone] (Work) 06/19/2024 10:20 AM CDT Office Visit [facility] [place] [address] [place] [address] Donna Burton NP [address] [facility] [address] [place] [address] 10/16/2024 2:00 PM CDT Office Visit [facility] - [facility] [address] [facility], [address] [place] [address] Roney Roth MD [address] [place] [address] documented as of this encounter Visit Diagnoses Not on filedocumented in this encounter Care Teams Life Skills Consultant Relationship Specialty Start Date End Date Donna Burton NP [address] [facility] [address] [place] [address] PCP - General NURSE PRACTITIONER 02/25/24 documented as of this encounter
--- OUTSIDE RECORDS SUMMARY | 2024-05-22 06:13 | XMS_ITS | Clinical Summary ---
Author Organization [facility] Address [address] [place] [address] Care Team Providers Care Abattoir Manager Name Role Phone Unavailable Primary Care Provider Unavailabl e Allergies Active Allergy Reactions Criticality Noted Date Comments Meperidine Itching High 03/18/2024 Nsaids (Non-Steroidal Anti-Inflammatory Drug) Other (See Comments) Low 03/18/2024 PT HAD GASTRIC BYPASS Sulfa (Sulfonamide Antibiotics) Rash Low 03/18/2024 Medications pantoprazole (PROTONIX) 40 mg Tablet, Delayed Release (E.C.) Take one tablet by mouth every day in the morning for stomach. 30 Tablet 4 024 Active baclofen (LIORESAL) 5 mg tablet Take one tablet by mouth three times a day, morning, midday, and bedtime as needed for pain. 90 Tablet 1 Active blood sugar diagnostic Strip Use to check blood sugar twice daily every morning and evening. 300 Strip Active lancets (TRUEplus Lancets) 33 gauge Use to check blood sugar twice daily every morning and evening. 100 Each Active levocetirizin e (XYZAL) 5 mg tablet Take 1 tablet (5 mg) by mouth every night at bedtime for allergies. 30 Tablet 11 024 Active rimegepant (Nurtec ODT) 75 mg Tablet, Rapid Dissolve Dissolve one tablet under the tongue as needed for migraine, as directed. 8 Tablet 6 024 Active gabapentin (NEURONTIN) 600 mg tablet Take one tablet by mouth every night at bedtime as directed for nerve pain. 30 Tablet 1 024 Active rimegepant (Nurtec ODT) 75 mg Tablet, Rapid Dissolve Take one tablet by mouth ever other day for migraine. 16 Tablet 2 025 Active fezolinetant ([place]oz[place]) 45 mg tablet Take one tablet by mouth every morning. 30 Tablet 2 025 Active ipratropium bromide (ATROVENT) 21 mcg (0.03 %) [place], Non-Aerosol ADMINISTER 2 SPRAYS IN EACH NOSTRIL TWICE DAILY. 30 mL 6 5 5:47 PM WAITER/WAITRESS CAFETERIA 025 Active fluticasone propionate (FLONASE) 50 mcg/spray [place], Suspension nasal inhaler ADMINISTER 2 SPRAYS IN EACH NOSTRIL ONCE DAILY. 16 Gram 6 5 5:47 PM WAITER/WAITRESS CAFETERIA 025 Active fluconazole (DIFLUCAN) 150 mg tablet Take 1 tablet (150 mg total) by mouth once for 1 dose. Take 2nd dose once antibiotics completed 2 Tablet 5 4:09 PM WAITER/WAITRESS CAFETERIA 025 Active nitrofurantoi n (MACROBID) 100 mg capsule Take 1 capsule (100 mg total) by mouth 2 (two) times daily for 5 days. Take with food 10 Capsule 5 4:09 PM WAITER/WAITRESS CAFETERIA 025 Active famotidine (PEPCID) 20 mg tablet Take 1 tablet (20 mg total) by mouth 2 (two) times daily. 60 Tablet 2 5 5:57 PM CDT 025 Active pantoprazole (PROTONIX) 40 mg Tablet, Delayed Release (E.C.) Take 1 tablet (40 mg total) by mouth 2 (two) times daily. 60 Tablet 2 5 5:57 PM CDT 025 Active FLUoxetine (PROzac) 40 mg capsule Take 1 capsule (40 mg total) by mouth daily. 30 Capsule 2 5 12:53 PM WAITER/WAITRESS CAFETERIA 025 Active sucralfate (CARAFATE) 1 gram tablet Take 1 tablet (1 g total) by mouth 3 (three) times daily before meals. 90 Tablet 2 5 12:53 PM WAITER/WAITRESS CAFETERIA 025 Active triamcinolone acetonide (KENALOG) 0.1 % Cream Apply topically 2 (two) times daily as needed. 45 Gram 1 5 12:53 PM WAITER/WAITRESS CAFETERIA 025 Active olmesartan (BENICAR) 40 mg tablet Take 1 tablet (40 mg total) by mouth daily. 30 Tablet 2 5 12:53 PM WAITER/WAITRESS CAFETERIA 025 Active hydrOXYzine HCL (ATARAX) 25 mg tablet Take 1 Tablet (25 mg) by mouth 3 times daily as needed for itching (morning, midday, and in the evening) 90 Tablet 1 5 12:53 PM WAITER/WAITRESS CAFETERIA 025 Active clomiPRAMINE (ANAFRANIL) 25 mg capsule Take 1 capsule (25 mg total) by mouth 3 (three) times daily. 90 Capsule 1 5 5:57 PM CDT 025 Active dulaglutide (TRULICITY) 0.75 mg/0.5 mL injection Inject 0.75 mg subcutaneously every 7 days. 2 mL 2 5 12:34 PM CDT 025 Active dulaglutide (Trulicity) 0.75 mg/0.5 mL injection Inject 0.5 mL (0.75 mg) by subcutaneous injection every 7 days. 2 mL 025 Active cyclobenzapri ne (FLEXERIL) 10 mg tablet Take 1 tablet (10 mg total) by mouth 3 (three) times daily as needed for Muscle Spasms. 90 Tablet 1 5 10:18 AM CDT 025 Active Cholecalcifer ol, Vitamin D3, 50 mcg (2,000 unit) Capsule Take 1 capsule ( 2,000 Units ) by mouth daily. 90 Capsule 1 5 10:18 AM CDT 025 Active traMADol (ULTRAM) 50 mg tablet Take 1 tablet (50 mg total) by mouth 3 (three) times daily as needed for Pain. Indications: Chronic Pain 90 Tablet 5 10:18 AM CDT 025 Active dulaglutide (Trulicity) 1.5 mg/0.5 mL injection Inject 0.5 mL (1.5 mg) by subcutaneous injection every 7 days. 2 mL 3 025 Active HYDROcodone-a cetaminophen (NORCO) 5-325 mg tablet Take 1 tablet by mouth 3 (three) times daily as needed for Pain. Indications: Chronic Pain 60 Tablet 5 5:25 PM CDT 025 Active lidocaine (LIDODERM) 5 % Adhesive Patch, Medicated APPLY 1 PATCH TO AREA ONCE DAILY. 12 HOURS ON, 12 HOURS OFF. 30 Patch Active baclofen (LIORESAL) 10 mg tablet Take 1 tablet (10 mg total) by mouth 3 (three) times daily. 90 Tablet 1 5 1:11 PM WAITER/WAITRESS CAFETERIA 025 2024 Discontinued glipiZIDE (GLUCOTROL) 5 mg tablet Take 1 Tablet (5 mg) by mouth daily in the morning before breakfast. 30 Tablet 1 5 5:57 PM CDT 025 2024 Discontinued dulaglutide (Trulicity) 0.75 mg/0.5 mL injection Inject 0.5 mL (0.75 mg) by subcutaneous injection every 7 days. 2 mL 5 4:09 PM WAITER/WAITRESS CAFETERIA 025 2024 Discontinued(R eorder) cyclobenzapri ne (FLEXERIL) 10 mg tablet Take 1 tablet by mouth every 8 hours 15 Tablet 5 9:01 AM CDT 025 2024 Discontinued(R eorder) traMADoL (ULTRAM) 50 mg tablet Take 1 tablet by mouth every 8 hours as needed 12 Tablet 5 9:01 AM CDT 025 2024 Discontinued(R eorder) Encounters Date Type Department Care Team Description 04/30/2024 External Device Data [facility]STRACTION Provider, Abstract 04/22/2024 External Device Data [facility]STRACTION Provider, Abstract 04/22/2024 External Device Data [facility]STRA[facility] Provider, Abstract 04/19/2024 External Device Data [facility] Provider, Abstract 04/18/2024 External Device Data [facility] Provider, Abstract 04/15/2024 External Device Data [facility]STRACTION Provider, Abstract 04/01/2024 External Device Data [facility]STRACTION Provider, Abstract 03/25/2024 External Device Data [facility]STRACTION Provider, Abstract 03/25/2024 External Device Data [facility]STRA[facility] Provider, Abstract 03/25/2024 External Device Data [facility]STRACTION Provider, Abstract from Last 3 Months Social History Tobacco Use Types Packs/Day Years Used Date Smoking Tobacco: Never Assessed Comments Unknown Sex and Gender Information Value Date Recorded Sex Assigned at Not on file Legal Sex Female 10:24 AM WAITER/WAITRESS CAFETERIA Gender Identity Not on file Sexual Orientation Not on file Plan of Treatment Health Maintenance Due Date Last Done Comments DTAP/TDAP/TD VACCINES (1 - Tdap) 11/13/1990 HEPATITIS B VACCINES (1 of 3 - 19+ 3-dose series) 03/1990 HPV/Cotest (21-29) 11/13/1992 CERVICAL CANCER SCREENING 11/13/2001 HPV/Cotest (30-65) 11/13/2001 PAP SMEAR 11/13/2001 BREAST CANCER SCREENING 2011 COLORECTAL SCREENING 11/13/2016 Colorectal Cancer Screening 11/13/2016 FIT-DNA Q 3 years 11/13/2016 FIT/FOBT Q 1 year 11/13/2016 Flex Sig/CT Colonography Q 5 years 11/13/2016 ZOSTER VACCINE (1 of 2) 11/13/2021 INFLUENZA VACCINE (#1) 2023 Insurance [facility]
--- OUTSIDE RECORDS SUMMARY | 2024-05-22 06:13 | XMS_ITS | Data Portability ---
Author Organization [place] [facility], Main Office Address [address] [place] [address] Care Team Providers Care Performance Instructor Name Role Phone DEJAH RIOS Primary Care Provider [phone] Assessment No assessment recorded. Plan of Treatment Reminders Order Date Submit Date Provider Last Modified By Organization Details Last Modified Time Details Appointments None recorded. Lab CMP, serum or plasma 2023 024 [email or web address] Not available 11:42:44 lipid panel, serum 2023 024 [email or web address] Not available 5 11:42:44 CBC w/ auto diff 2023 024 [email or web address] Not available 11:42:45 TSH, serum or plasma 2023 024 MORELIA Not available 5 10:02:21 HbA1c (hemoglobi n A1c), blood 2023 024 [email or web address] Not available 5 11:42:45 vitamin D, 25-hydroxy , total, serum 2023 024 [email or web address] Not available 5 11:42:45 hepatitis C virus Ab, serum 2023 024 [email or web address] Not available 11:42:45 Referral otolaryngo logist referral 2023 024 [email or web address] Real Liriano MD, [address], [place], [address], 5 17:36:[address] referral 2023 024 [email or web address] Cherelle Varma, [address], [place], [address], Ph [phone] 5 08:09:00 gastroente rologist referral 2023 024 [email or web address] Liliya Paz MD, [address] [facility], [address], [place], [address], 5 08:08:58 pain management referral - Dr. Gibbons placed spinal stimulator and she is having issues at this time. She has requested to see him. 2023 024 [email or web address] Gino Gibbons MD, [address], [place], [address], 5 08:08:58 orthopedic surgeon referral - History of shoulder surgery and is having issues 2023 024 [email or web address] [facility], [address] [facility], [place], [address], 5 17:36:24 patient registration clerk referral 2023 024 [email or web address] Sergey Kay DPM, [address] [facility], [facility] [address], [place], [address], 5 08:08:57 Procedures insertion of septal button (PROC) 2023 024 [email or web address] Not available 4 10:39:45 Surgeries None recorded. Imaging MAMMO, screening, digital, bilateral 2023 024 [facility] ([facility]), [address] [place], [address], 4 14:32:23 Medication Orders pantoprazo le 40 mg tablet,del ayed release [address] [facility], [address] [place] [address], [address], 4 10:23:22 Sunosi 150 mg tablet 2023 024 [facility], [address] [place] [address], [address], 4 10:23:24 clomiprami ne 25 mg capsule 2023 024 [facility], [address] [place] [address], [address], 4 10:23:22 Nurtec ODT 75 mg disintegra ting tablet 2023 024 [email or web address] [facility], [address] [place] [address], [address], 4 13:56:54 Patient TargetsNo targets recorded. Patient Instructions Encounter Date Encounter Id Patient Instructions Last Modified By Organization Details Last Modified Time 10/24/2023 [id number] Follow up in 3 months Prescriptions sent to pharmacy Obtain labs Tests: Mammogram Referral: Orthopedics- [facility] Podiatry-Dr. Moralez GI-Dr. Paz ENT-Dr Liriano Pain management-Dr. Gibbons INFORMATION TECHNOLOGY ARCHITECT-Dr. Varma Recommend: Influenza Tetanus vaccine Shingles vaccine [email or web address] Not available 10/24/2023 10:18:18 02/28/2024 [id number] she will return as needed Not available 02/28/2024 11:00:40 03/27/2024 [id number] the septal butto n was trimmed. Not available 03/27/2024 14:56:40 04/07/2024 [id number] we will trim the septal button under anesthesia Not available 04/07/2024 14:16:16 Reason for Referral Cook Fry Referral for Buni on Referring Physician: Dejah Rios, Internal Medicine, Encounter Date: 10/24/2023 Tree Expert Referral fo r Deviated nasal septum Referring Physician: Dejah Rios, Internal Medicine, Encounter Date: 10/24/2023 Pharmacy Graduate Intern Referral for Multiple gastric ulcers Referring Physician: Dejah Rios, Internal Medicine, Encounter Date: 10/24/2023 Orthopedic Surgeon Referral for Pain of left shoulder region History of shoulder surgery and is having issues Referring Physician: Dejah Rios, Internal Medicine, Encounter Date: 10/24/2023 Pain Management Referral for Migration of spinal cord stimulator Dr. Gibbons placed spinal stimulator and she is having issues at this time. She has requested to see him. Referring Physician: Dejah Rios, Internal Medicine, Encounter Date: 10/24/2023 Software Recruiter Referral for Gy necologic examination Referring Physician: Dejah Rios, Internal Medicine, Encounter Date: 10/24/2023 Results Created Date Observation Date Name Description Value Unit Range Abnormal Flag Note LastModifiedBy Organization Detail LastModifiedTime 02/19/19 25 02/20/2024 HEMOG LOBIN /ROB TOCRI T hemoglobin 7.7 g/dL 12.0-1 5.6 low Not Available [facility] (Lab) [address] [place], [address], 02/20/2024 12:03:04 02/19/19 25 02/20/2024 HEMOG LOBIN /ROB TOCRI T hematocrit 27.3 % 35.7-4 5.7 low Not Available [facility] (Lab) [address] [place], [address], 02/20/2024 12:03:04 02/19/19 25 02/20/2024 PLATE LET COUNT platelets 372 x10'3 /uL 150-40 0 Not Available [facility] (Lab) [address] [place], [address], 02/20/2024 12:03:09 02/19/19 25 02/20/2024 GLUCO SE (POIN T OF CARE) glucose (point of care) 142 mg/dL 74-99 high Not Available [facility] (Lab) [address] [place], [address], 02/20/2024 12:48:03 04/24/19 25 04/23/2024 GLUCO SE (POIN T OF CARE) glucose (point of care) 222 mg/dL 74-99 high Not Available [facility] (Lab) [address] [place], [address], 04/23/2024 09:46:33 04/24/19 25 04/23/2024 HEMOG LOBIN /ROB TOCRI T hemoglobin 10.9 g/dL 12.0-1 5.6 low Not Available [facility] (Lab) [address] [place], [address], 04/23/2024 09:57:16 04/24/19 25 04/23/2024 HEMOG LOBIN /ROB TOCRI T hematocrit 36.6 % 35.7-4 5.7 Not Available [facility] (Lab) [address] [place], [address], 04/23/2024 09:57:16 04/24/19 25 04/23/2024 PLATE LET COUNT platelets 352 x10'3 /uL 150-40 0 Not Available [facility] (Lab) [address] [place], [address], 04/23/2024 09:57:22 04/24/19 25 04/23/2024 POTAS SIUM potassium 4.4 mmol/ L 3.5-5. 1 Not Available [facility] (Lab) [address] [place], [address], 04/23/2024 09:59:58 Result Notes None recorded. Problems Name Problem SNOMED Code Status Onset Date Resolution Date Notes Provider Name and Address Organization Details Recorded Time Gastroesophage al reflux disease 924261080 Active 2023 Dejah Rios APRN [address] [facility], [address], [place], [address], [facility] 4 09:42:56 Narcolepsy 57540207 Active 2023 Dejah Rios APRN [address], [address], [place], [address], [facility] [employer] [facility] 4 09:43:13 Multiple gastric ulcers 038228120 Active 2023 Dejah Rios APRN [address], [address], [place], [address], [facility] [employer] [facility] 4 09:43:42 Migraine 64361216 Active 2023 Dejah Rios APRN [address], [address], [place], [address], [facility] [employer] [facility] 4 09:44:33 Deviated nasal septum 239218571 Active 2023 Dejah Rios APRN [address], [address], [place], [address], [facility] [employer] [facility] 4 09:45:27 Pain of left shoulder region Active 2023 Dejah Rios APRN [address], [address], [place], [address], [facility] [employer] [facility] 4 09:46:14 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 Dejah Rios APRN [address], [address], [place], [address], [facility] [employer] [facility] 4 09:46:55 Obsessive-comp ulsive disorder 744251272 Active 2023 Dejah Rios APRN [address], [address], [place], [address], [facility] [employer] [facility] 4 09:47:37 Mixed anxiety and depressive disorder 815361025 Active 2023 Dejah Rios APRN [address], [address], [place], [address], [facility] [employer] [facility] 4 09:47:58 Osteoarthritis 275883097 Active 2023 Dejah Rios APRN [address], [address], [place], [address], [employer] [facility] 4 09:48:14 Bunion 251046474 Active 2023 Dejah Rios APRN [address], [address], [place], [address], [facility] [facility] [place] [employer] [facility] 4 09:48:29 Cramp in foot 754333145 Active 2023 Dejah Rios APRN [address], [address], [place], [address], [email or web address] 4 09:48:40 History of Spinal surgery 900658009 Active 2023 Dejah Rios APRN [address], [address], [place], [address], [email or web address] 4 09:55:40 Migration of spinal cord stimulator 386527591 Active 2023 Dejah Rios APRN [address] [facility], [address], [place], [address], [email or web address] [facility] 4 10:10:47 Perforation of nasal septum 48327940 Active 2023 Real Liriano MD [address], [facility] [address], [place], [address], [employer] 4 10:58:19 Notes:Some problems listed i n Document: #[id number] could not be added to this patient's chart. Please review this document and add these problems to the patient's chart manually as needed. Problem Notes None recorded. Procedures Surgical History Date Name Laterality Status Provider Name and Address Organization Details Recorded Time Gastric bypass for obesity completed Belen Blue MA [facility] [employer] [facility] 10/24/2023 09:35:38 delivery completed KENAN Brunner [place] [employer] [facility] 10/24/2023 09:35:56 Back [facility] 10/24/2023 09:36:21 Shoulder completed Belen Blue MA [facility] 10/24/2023 09:36:33 cholecystectomy completed Belen Blue MA [facility] 10/24/2023 09:36:42 Tonsillectomy completed Belen Blue MA [facility] 10/24/2023 09:36:50 Tubal Ligation completed Belen Blue MA [facility] 10/24/2023 09:37:03 endometrial ablation completed Belen Blue MA [facility] 10/24/2023 09:37:26 Imaging Results None recorded. Procedure Notes None recorded. Medical Equipment None Reported. Allergies Allergen ID Allergen Name Allergen Category Reaction Reaction Severity Criticality Documentation Date Start Date Code Code System Note Provider Name and Address Organization Details Recorded Time 50499 Substance with sulfonami de structure and antibacte rial mechanism of action (substanc e) medicatio n rash moderate Not available 10/24/2023 09759 8003 [facility]ED [facility] 4 09:28:08 18716 Demerol medicatio n vomiting Not available Not available 10/24/2023 46594 1 [facility]Norm [facility] 4 09:28:24 42396 codeine medicatio n vomiting Not available Not available 10/24/2023 2670 RxNorm [facility] 4 09:28:48 Medications Name Sig Start Date Stop Date Status Note LastModified by Organization Details LastModified Time fluoxetin e 40 mg capsule active Not Available Not Available Not Available cyclobenz aprine 10 mg tablet TAKE ONE TABLET BY MOUTH EVERY NIGHT NEEDED FOR MUSCLE SPASMS active Not Available Not Available No t Available amoxicill in 500 mg capsule 02/27 completed Not Available Not Available Not Available fluconazo le 150 mg tablet active Not Available Not Available Not Available sucralfat e 1 gram tablet TAKE ONE TABLET BY MOUTH THREE TIMES DAILY, MORNING, MIDDAY & IN THE EVENING IN THE MORNING, AT MIDDAY, & AT BEDTIME FOR STOMACH active Not Available Not Available No t Available omeprazol e 40 mg capsule,d elayed release active Not Available Not Available Not Available triamcino lone acetonide 0.1 % topical cream active Not Available Not Available Not Available famotidin e 20 mg tablet active Not Available Not Available Not Available baclofen 10 mg tablet active Not Available Not Available Not Available pantopraz ole 40 mg tablet,de layed release TAKE ONE TABLET BY MOUTH EVERY DAY IN THE MORNING FOR STOMACH active Not Available Not Available No t Available hydroxyzi ne HCl 25 mg tablet TAKE ONE TABLET BY MOUTH THREE TIMES DAILY, MORNING, MIDDAY & IN THE EVENING NEEDED FOR ITCHING active Not Available Not Available No t Available clomipram ine 25 mg capsule TAKE ONE CAPSULE BY MOUTH THREE TIMES DAILY, MORNING, MIDDAY & IN THE EVENING IN THE MORNING, AT MIDDAY, & AT BEDTIME FOR ocd DIRECTED active Not Available Not Available No t Available fluoxetin e 20 mg capsule active Not Available Not Available Not Available fluticaso ne propionat e 50 mcg/actua tion nasal spray,rianna pension active Not Available Not Available Not Available ipratropi um bromide 21 mcg (0.03 %) nasal spray active Not Available Not Available Not Available glipizide 5 mg tablet active Not Available Not Available Not Available diazepam 5 mg tablet TAKE ONE TABLET BY MOUTH NEEDED TAKE 30 MINUTES PRIOR TO PROCEDUR E. MUST HAVE PSYCHIATRIC SECURITY NURSE 10/23 completed Not Available Not Available Not Available olmesarta n 20 mg tablet active Not Available Not Available Not Available olmesarta n 40 mg tablet active Not Available Not Available Not Available nitrofura ntoin monohydra te/macroc rystals 100 mg capsule active Not Available Not Available Not Available Xyzal 5 mg tablet Take 1 tablet every day by oral route. active Not Available Not Available No t Available TRUEplus Lancets 33 gauge USE TO CHECK BLOOD SUGAR TWICE DAILY EVERY MORNING & EVENING active Not Available Not Available No t Available True Metrix Glucose Test Strip USE TO CHECK BLOOD SUGAR TWICE DAILY EVERY MORNING & EVENING active Not Available Not Available No t Available True Metrix Glucose Meter USE TO CHECK BLOOD SUGAR TWICE DAILY EVERY MORNING & EVENING active Not Available Not Available No t Available Trulicity 0.75 mg/0.5 mL subcutane ous pen injector active Not Available Not Available Not Available baclofen 5 mg tablet TAKE ONE TABLET BY MOUTH THREE TIMES A DAY, MORNING, MIDDAY AND BEDTIME NEEDED FOR PAIN active Not Available Not Available No t Available Sunosi 150 mg tablet Take by oral route for 30 days. active Not Available Not Available No t Available Nurtec ODT 75 mg disintegr ating tablet Take 1 tablet every day by oral route as directed , for migraine s. 11/11 completed Not covered on insuranc e. [place] denied Not Available Not Available Not Available Vitals Date Recorded Body height Body mass index (BMI) Body weight Body temperature Heart rate Oxygen saturation Oxygen saturation in Arterial blood by Pulse oximetry Systolic blood pressure Diastolic blood pressure Provider Name and Address Organization Details Last Updated DateTime 160.02 cm 27.8 kg/m2 93761 g 98 [degF] 98 /min 99 % 99 % 142 mm[Hg] 80 mm[Hg] Belen Blue MA [facility] [employer] [facility] 09:27:29 Date Recorded Body height Body mass index (BMI) Body weight Body temperature Provider Name and Address Organization Details Last Updated DateTime 11/27/2023 160.02 cm 27.1 kg/m2 57504.91 g 97.6 [degF] Catrina Sheridan RN [facility] [employer] [facility] 11/27/2023 10:18:35 Date Recorded Body height Body mass index (BMI) Body weight Body temperature Provider Name and Address Organization Details Last Updated DateTime 02/28/2024 160.02 cm 26.9 kg/m2 78002.04 g 97.9 [degF] Catrina Sheridan RN [facility] [employer] [facility] 02/28/2024 10:52:19 Date Recorded Body height Body mass index (BMI) Body weight Body temperature Provider Name and Address Organization Details Last Updated DateTime 03/27/2024 160.02 cm 28.4 kg/m2 35728.22 g 98 [degF] Catrina Sheridan RN [facility] [employer] [facility] 03/27/2024 14:33:56 Date Recorded Body height Body mass index (BMI) Body weight Body temperature Provider Name and Address Organization Details Last Updated DateTime 04/07/2024 160.02 cm 27.8 kg/m2 63372.72 g 98 [degF] Catrina Sheridan RN [facility] [employer] [facility] [employer] 04/07/2024 14:03:53 Social History Question Answer Notes LastModified by Organizat ion Details LastModified Time Tobacco Smoking Status Former Smoker KENAN Brunner, [facility] [employer] [facility] 10/24/2023 09:33:56 What Is Your Level Of Alcohol Consumption? Occasional Information not available 10/24/2023 What Is Your Level Of Caffeine Consumption? None Information not available 10/24/2023 In The 14 Days Before Symptom Onset, Have You Had Close Contact With A Laboratory-confi rmed COVID-19 While That Case Was Ill? No Information not available 10/24/2023 In The 14 Days Before Symptom Onset, Have You Had Close Contact With A Person Who Is Under Investigation For COVID-19 While That Person Was Ill? No Information not available 10/24/2023 Are You Currently Employed? Yes Information not available 10/24/2023 What Type Of Diet Are You Following? CARBOHYDRATE Information not available 10/24/2023 Which Illicit Or Recreational Drugs Have You Used? Marijuana Information not available 10/24/2023 What Is Your Occupation? [employer] Information not available 10/24/2023 When Did You Quit Smoking? 16+yearsjustin bradford Only Smoked For A Couple Of Months Information not available 10/24/2023 Do You Use Insect Repellent Routinely? No Information not available 10/24/2023 Where Do You Live? Other Information not available 10/24/2023 Are You Following A Low Salt Diet? No Information not available 10/24/2023 What Was The Date Of Your Most Recent Tobacco Screening? 10/24/2023 Information not available 10/24/2023 How Many Children Do You Have? 3 Information not available 10/24/2023 Do You Have Any Pets? No Information not available 10/24/2023 What Is Your Relationship Status? Information not available 10/24/2023 Do You Use Your Seat Belt Or Car Seat Routinely? Yes Information not available 10/24/2023 Do You Have Smoke And Carbon Monoxide Detectors In Your Home? Yes Information not available 10/24/2023 At What Age Did You Start Smoking Tobacco? 13 Information not available 10/24/2023 Are You Passively Exposed To Smoke? No Information not available 10/24/2023 Are There Any Smokers In Your House? No Information not available 10/24/2023 Do You Feel Stressed (tense, Restless, Nervous, Or Anxious, Or Unable To Sleep At Night)? [id number] Information not available 10/24/2023 Do You Use Any Illicit Or Recreational Drugs? Yes Information not available 10/24/2023 Do You Use Sunscreen Routinely? No Information not available 10/24/2023 Have You Recently Traveled Abroad? No Information not available 10/24/2023 Have You Used IV Drugs? No Information not available 10/24/2023 Do You Have Any Dietary Restrictions? Yes Information not available 10/24/2023 Do You Or Have You Ever Used Any Other Forms Of Tobacco Or Nicotine? No Information not available 10/24/2023 Sex: Unknown Functional Status Question Answer Note LastModified by Organization D etails LastModified Time What is your exercise level? Moderate Information not available 10/24/2023 Mental Status None recorded. Family History Relationship Description Onset Age of this Age Resolved Age Notes LastModified by Organization Details LastModified Time Mother Diabetes mellitus [email or web address] Not available 2023 09:31:41 Mother Hypertensive disorder [email or web address] Not available 2023 09:31:53 Unspecified Relation Malignant neoplastic disease [email or web address] Not available 2023 09:32:23 Notes:no ent Medical History Condition Response MRSA N BACK INJECTIONS N ALLERGIES/HAYFEVER N LUNG DISEASE/DISORDER N INSOMNIA N HISTORY OF DRUG ABUSE N ESRD N RADIATION / CHEMOTHERAPY N COPD N HIGH CHOLESTEROL / HYPERLIPIDEMIA N HYPERTHYROIDISM N PVD N BLOOD DISEASES N EAR OR HEARING PROBLEMS N HYPOTHYROIDISM N SHINGLES N DEPRESSION (INCLUDING POST ) N BACK / NECK PROBLEMS N HAVE YOU BEEN HOSPITALIZED OR SEEN IN [facility] ER IN THE PAST YEAR ? N FAILED BACK SYNDROME N STROKE/TIA N POLYCYSTIC OVARIES N OBESITY N HISTORY WITH COMPLICATIONS WITH ANESTHES IA ? N ANEURYSM N Do you have Advance directive? N USE OF BLOOD THINNERS N NO SIGNIFICANT PAST MEDICAL HISTORY N DIABETES, TYPE N VON WILLIBRAND'S DISEASE N PARATHYROID DISEASE N ENT N SEASONAL ALLERGIES N HEARTBURN / REFLUX N POST LAMINECTOMY SYNDROME N HEPATITIS / LIVER DISEASE N SLEEP DISORDER N ARTERIAL INSUFFICIENCY N SEIZURES/EPILEPSY N HEADACHES/MIGRAINES N CHF N PACEMAKER N DIZZINESS N HEART DISEASE/HEART PROBLEMS N AIDS/HIV N NEUROPSYCHOLOGICAL N HYPERTENSION N CANCER: SPECIFY N TOURETTE'S N BLOOD TRANSFUSION N ANESTHESIA COMPLICATIONS N ANEMIA/BLOOD DISORDER N CHRONIC EAR INFECTIONS N ATRIAL FIBRILLATION N AUTOIMMUNE DISEASE N TUBERCULOSIS N Gynecological History Statement/Question Response How many live births 3 Date of Last Pap Current Control Method Tubal Ligat ion Date of Last Colonoscopy Date of Last Mammogram Date of LMP Obstetrics History GPAL:G 4 P 3 0 1 3 Type Value Multiple Births 0 Full Term 3 Induced 0 Spontaneous 1 Premature 0 Living 3 Ectopics 0 Total 4 Immunizations Vaccine Type Date Status Note Provider Nam e and Address Organization Details Recorded Time pneumococcal polysaccharide PPV23 2 completed Dejah Rios APRN [address] [facility], [address], [place], [address], [facility] 10/24/2023 09:41:32 Influenza, split virus, trivalent, preservative 1 completed Dejah Rios APRN [address] [facility], [address], [place], [address], [employer] 10/24/2023 09:41:32 Td (adult), 5 Lf tetanus toxoid, preservative free, adsorbed 8 completed Dejah Rios APRN [address], [address], [place], [address], [employer] 10/24/2023 09:41:32 influenza, seasonal, intradermal, preservative free 2 patricia Rios APRN [address] [facility], [address], [place], [address], [employer] 10/24/2023 09:41:32 Past Encounters Encounter ID Performer Location Encounter Start Date Encounter Closed Date Diagnosis/Indication Diagnosis SNOMED-CT Code Diagnosis ICD10 Code Diagnosis Note [id number] Dejah Rios APRN [facility] Internal Med [facility]arett [place] [address] [facility] [place] [address] 10/24/2023 09:10:47 10/24/2023 10:25:07 Pain of left shoulder region 4629389247 M25.512 Bunion 818492323 M21.61 9 Deviated nasal septum 12 7157659 J34.2 Multiple g astric ulcers 404842536 K25.9 Migraine 52187993 G43.90 9 Mixed anxi ety and depressive disorder 164100360 F41.8 Adult heal th examination 043190798 Z00.00 Screening mammography 24 487964 Z12.31 Obsessive- compulsive disorder 628361806 F42.9 Gastroesop hageal reflux disease 878225085 K21.9 Narcolepsy 00384444 G47. 421 Migration of spinal cord stimulator 670364919 T85.122A Gynecologi c examination 62652638 Z01.831 [id number] Real Liriano MD [facility] ENT [place] [address] [place] [address] 11/27/2023 09:52:53 11/28/2023 16:03:27 Perforation of nasal septum 62245641 J34.89 [id number] [address] [facility] [place] [address] [place] [address] 02/28/2024 10:38:01 02/29/2024 09:45:15 Perforation of nasal septum 72589243 J34.89 [id number] [address] [facility] ENT [place] [address] [place] [address] 03/27/2024 14:20:36 03/28/2024 08:48:33 Perforation of nasal septum 69552104 J34.89 [id number] Real [address] MD [facility] ENT [place] [address] [place] [address] 04/07/2024 13:54:56 04/08/2024 12:36:35 Perforation of nasal septum 08669834 J34.89 Health Concerns Section Related Observation LastModified by Organization Detai ls LastModified Time None Recorded Concern Status LastModified by Organization Details LastModified Time None Recorded Advance Directives Directive None Recorded Payers Encounter Date Sequence Insurance Name Policy Number Policy Gil[place] Covered Member ID Gil[place] Member ID Guarantor Name 10/24/2023 2 [facility] ([facility] [place] Barbara Rivas [id number] Barbara Rivas 11/27/2023 2 [facility] ([facility] [place] Barbara Rivas [id number] Barbara Rivas 02/28/2024 1 [facility] ([facility] Barbara Rivas [id number] Barbara Rivas 03/27/2024 1 [facility] ([facility] Barbara Rivas [id number] Barbara Rivas 04/07/2024 2 [facility] ([facility] [place] Barbara Rivas [id number] Barbara Rivas 04/07/2024 1 [facility] ([facility] Barbara Rivas [id number] Barbara Rivas Notes Date Note Type Note Provider Name and Address Organization Details Recorded Time 10/24/2023 text/html Barbara presents today to establish care. She states that she recently transferred here from [place]. She states she has multiple issues in which she needs assistance with, including referrals. Dejah Rios APRN [address], [place], [address], [place] 10/24/2023 10:23:36 11/27/2023 text/html This patient developed a whistling sound in her ears she has been crusting and bleeding daily. She has been using Afrin nasal spray daily for years Real Liriano MD [address], [place], [address], [place] 11/27/2023 10:58:42 02/28/2024 text/html she is doing wel l following insertion of septal button. Real Liriano MD [address], [facility] [address], [place], [address], [facility] 02/28/2024 11:00:57 03/27/2024 text/html he complains of a sore area in the left side of the nose corresponding to the septal button. Real Liriano MD [address], [facility] [address], [place], [address], [facility] 03/27/2024 14:57:01 04/07/2024 text/html she continues to report a foreign body sensation in the left side of the nose corresponding to the septal button fastener. We trimmed it last time in the office and it was too painful so we will do this under anesthesia Real Liriano MD [address], [facility] [address], [place], [address], [facility] 04/07/2024 14:16:38 OBGyn Episode No OBEpisode recorded.
--- OUTSIDE RECORDS SUMMARY | 2024-05-22 06:13 | XMS_ITS ---
Author Organization [facility] Address [address] [place] [address] Care Team Providers Care Travel Physical Therapist Name Role Phone Brandon Gonzalez Unavailable [phone] REASON FOR VISIT Chronic upper airway symptoms concerning for uncontrolled atopic disease, Chronic lower airways symptoms concerning for possible asthma Problems Problem Type SNOMED Code ICD Code Onset Dates Problem Status W/U Status Risk Notes Problem Allergic rhinitis caused by pollen (disorder) (29785415) Allergic rhinitis due to pollen (J30.1) Active confirmed Problem Allergic rhinitis caused by animal hair and dander (248299063464929) Allergic rhinitis due to animal (cat) (dog) hair and dander (J30.81) Active confirmed Problem Allergic rhinitis (37296555) Other allergic rhinitis (J30.89) Active confirmed Problem Chronic allergic conjunctivitis (12891123) Other chronic allergic conjunctivitis (H10.45) Active confirmed Problem Chronic rhinitis (33477946) Chronic rhinitis (J31.0) Active confirmed Problem Uncomplicated moderate persistent asthma (139299719) Moderate persistent asthma, uncomplicated (J45.40) Active confirmed Problem Uncomplicated mild persistent asthma (168895573) Mild persistent asthma, uncomplicated (J45.30) Active confirmed Problem Uncomplicated severe persistent asthma (739457490) Severe persistent asthma, uncomplicated (J45.50) Active confirmed Encounters Encounter Location Date Provider Diagnosis [facility] [address] [facility] [address] [place] [phone] 03/18/2024 Brandon Gonzalez Allergic rhinitis du e to pollen J30.1 ; Allergic rhinitis due to animal (cat) (dog) hair and dander J30.81 ; Other allergic rhinitis J30.89 ; Other chronic allergic conjunctivitis H10.45 ; Hypertrophy of nasal turbinates J34.3 ; Chronic rhinitis J31.0 ; Moderate persistent asthma, uncomplicated J45.40 ; Mild persistent asthma, uncomplicated J45.30 and Severe persistent asthma, uncomplicated J45.50 Assessments Encounter Date Diagnosis (ICD Code) Assessment Notes Treatment Notes Treatment Clinical Notes Section Notes 03/18/2024 Allergic rhinitis due to pollen (ICD-10 - J30.1) Given the history and symptoms, skin testing was performed to common aeroallergens to determine atopic status. clearly suffers from atopic disease based upon our skin testing and clinical history. Accordingly, we have introduced a new, aggressive medication regimen, discussed nasal washes and allergy-specific avoidance measures. We also discussed adjunctive therapies including subcutaneous, specific allergen immunotherapy as relates to the treatment and prevention of atopic disease. They are currently considering the risks, benefits and alternatives to this care. Risks: bleeding, infection, allergic reaction, anaphylaxis; Benefits: reduced need for medications, improved symptoms, disease modification. Alternatives: watch/wait, change medication regimen, improve allergy avoidance measures. Follow-up in 1 month for interval evaluation and management 03/18/2024 Allergic rhinitis due to animal (cat) (dog) hair and dander (ICD-10 - J30.81) Follow allergen avoidance, meds and consider SCIT as an adjunctive treatment to current regimen 03/18/2024 Other allergic rhinitis (ICD-10 - J30.89) Follow allergen avoidance, meds and consider SCIT as an adjunctive treatment to current regimen 03/18/2024 Other chronic allergic conjunctivitis (ICD-10 - H10.45) Given ocular signs and symptoms I encouraged allergy avoidance measures and meds as above. If symptoms persist, consider adding additional medications including intraocular antihistamine/mas t cell stabilizer, PRN and consider SCIT as an adjunctive measure 03/18/2024 Hypertrophy of nasal turbinates (ICD-10 - J34.3) 03/18/2024 Chronic rhinitis (ICD-10 - J31.0) 03/18/2024 Moderate persistent asthma, uncomplicated (ICD-10 - J45.40) 03/18/2024 Mild persistent asthma, uncomplicated (ICD-10 - J45.30) 03/18/2024 Severe persistent asthma, uncomplicated (ICD-10 - J45.50) Plan Of Treatment Treatment Notes Assessment Notes Allergic rhinitis due to pollen Given th e history and symptoms, skin testing was performed to common aeroallergens to determine atopic status. clearly suffers from atopic disease based upon our skin testing and clinical history. Accordingly, we have introduced a new, aggressive medication regimen, discussed nasal washes and allergy-specific avoidance measures. We also discussed adjunctive therapies including subcutaneous, specific allergen immunotherapy as relates to the treatment and prevention of atopic disease. They are currently considering the risks, benefits and alternatives to this care. Risks: bleeding, infection, allergic reaction, anaphylaxis; Benefits: reduced need for medications, improved symptoms, disease modification. Alternatives: watch/wait, change medication regimen, improve allergy avoidance measures. Follow-up in 1 month for interval evaluation and management Allergic rhinitis due to ani mal (cat) (dog) hair and dander Follow allergen avoidance, meds and consider SCIT as an adjunctive treatment to current regimen Other allergic rhinitis Follow allergen avoidance, meds and consider SCIT as an adjunctive treatment to current regimen Other chronic allergic conjunctivitis Gi berenice ocular signs and symptoms I encouraged allergy avoidance measures and meds as above. If symptoms persist, consider adding additional medications including intraocular antihistamine/mast cell stabilizer, PRN and consider SCIT as an adjunctive measure Next Appt Details Follow Up: 4 Weeks, Reason: Evaluation and Management Progress Notes * Christy HATHAWAYAmbreenOB: 2 (53 yo F)Acc No.[id number]:03/18/2024 Progress Notes Patient: Barbara ROMERO Provider: Aramis Gonzalez PA-C :1970 A ge:53 Y S ex:Female Date:03/18/2024 Address:[address] [place], [place] [address] [address] Subjective: * Chief Complaints: * 1 . Chronic upper airway symptoms concerning for uncontrolled atopic disease. 2. Chronic lower airways symptoms concerning for possible asthma. * HPI: * Introduction: I had the pleasure of seeing x . * ROS: A LLERGY: Positive p er the HPI and history, otherwise unremarkable.? S PECIAL SENSES: Positve for n one. C ONSTITUTIONAL: Positive for n one. E NT: Positive p er the HPI and history, otherwise unremarkable.? R ESPIRATORY: Positive p er the HPI and history, otherwise unremakable.? O PHTHALMOLOGY: Positive for p er the HPI and history, otherwise unremarkable. E NDOCRINOLOGY: Positive for n one. C ARDIOLOGY: Positive for n one. G ASTROENTEROLOGY: Positive for n one. U ROLOGY: Positive for n one. D ERMATOLOGY: Positive for p er the HPI and history, otherwise unremakable. N EUROLOGY: Positive for n one. H EMATOLOGY/LYMPH: Positive for n one. M USCULOSKELETAL: Positive for n one. P SYCHOLOGY: Positive for n one. A ll other review of systems per the HPI and history, otherwise unremarkable. * Medical History: Objective: * Vitals: * Examination: G eneral examination: General appearance: p leasant, well-developed, well-nourished. HEENT: p upils equal, round, and reactive to light and accommodation, conjunctiva are injected bilaterally, no tenderness to palpation of the sinuses, TM's without evidence of acute infection, turbinates 2+ swollen and pale inferiorly bilaterally, clear rhinorrhea is present, no polyps noted, no septal perforation, posterior oropharynx is erythematous and cobblestoning is present, erythema on pharyngeal wall, no exudates, no tongue swelling, and uvula is midline. Oral cavity: n ormal, no lesions. Neck, thyroid : s upple, non-tender, no anterior cervical lymphadenopathy. Breasts : n ot performed. Heart: R RR, S1-S2, no murmurs, no rubs, no gallops. Lungs: c lear to auscultation and percussion in all lung gauthier, no wheezes or crackles. Abdomen: s oft, NT/ND, normal active bowel sounds. Neurologic exam: u nremarkable. Skin: n ormal, no rash, dermatographism, urticaria, angioedema. Peripheral pulses: n ormal (2+) bilaterally. Back: n ormal. Extremities: n ormal ROM, no clubbing, no cyanosis, no edema. Genitalia: n ot performed. Assessment: * Assessment: 1. A llergic rhinitis due to pollen - J30.1 (Primary) 2 . A llergic rhinitis due to animal (cat) (dog) hair and dander - J30.81 3 . O ther allergic rhinitis - J30.89 4 . O ther chronic allergic conjunctivitis - H10.45 5 . H ypertrophy of nasal turbinates - J34.3 6 . C hronic rhinitis - J31.0? 7. M oderate persistent asthma, uncomplicated - J45.40 8 . M ild persistent asthma, uncomplicated - J45.30 9 . S evere persistent asthma, uncomplicated - J45.50 Plan: * Treatment: 2. A llergic rhinitis due to animal (cat) (dog) hair and dander Notes: Follow allergen avoidance, meds and consider SCIT as an adjunctive treatment to current regimen 3. O ther allergic rhinitis Notes: Follow allergen avoidance, meds and consider SCIT as an adjunctive treatment to current regimen 4. O ther chronic allergic conjunctivitis Notes: Given ocular signs and symptoms I encouraged allergy avoidance measures and meds as above. If symptoms persist, consider adding additional medications including intraocular antihistamine/mast cell stabilizer, PRN and consider SCIT as an adjunctive measure * Procedure Codes: 9 5004 PRICK TESTS, Units: 72.00 , 90846 INTRADERMAL TESTS, 77622 MEASURE BLOOD OXYGEN LEVEL, 60013 SELF-MGMT EDUC & TRAIN, 1 PT, S9441 ASTHMA ED NON-MD PROV PER SESSION, 16549 PT-FOCUSED HLTH RISK ASSMT, G8427 DOC MEDS VERIFIED W/PT OR RE * Preventive Medicine: Counseling: M edication instruction: W atch for side effects of prescribed medications, Nasal steroid/antihistamine instruction: avoid septum. E ducation: G ENERAL EDUCATION: Our staff spent an additional 30 minutes in direct contact with the patient educating them on their current diagnoses and proper treatment and prevention of symptoms and the proper use of medications. E ducation 2: A RC EDUCATION: Our staff discussed the appropriate allergen avoidance measures and medication utilization including upper airway hygiene with daily nasal washes given the patient's clinical status and diagnoses. SCIT EDUCATION: Discussed allergy immunotherapy including the relative risks, benefits and alternatives to this treatment as an adjunctive measure to current therapy, Allergy Immunotherapy: Risks: bleeding, infection, allergic reaction, anaphylaxis = severe allergic reaction that can cause ; Benefits: reduced need for medications, improved symptoms, disease modification. Alternatives: watch/wait, change medication regimen, improve allergy avoidance measures, Our staff discussed the warning signs of anaphylaxis and the indications to use self-injectable epinephrine and seek urgent or emergent care. P atient education material sent to portal? Y es * Follow Up: 4 Weeks (Reason: Evaluation and Management) * Billing Information: * Visit Code: * Procedure Codes: 56145 PRICK TESTS. Units: 72.00. 74859 INTRADERMAL TESTS. 58626 MEASURE BLOOD OXYGEN LEVEL. 52174 SELF-MGMT EDUC & TRAIN, 1 PT. S9441 ASTHMA ED NON-MD PROV PER SESSION. 45948 PT-FOCUSED HLTH RISK ASSMT. G8427 DOC MEDS VERIFIED W/PT OR RE. * Electronic signature of Liang Gonzalez PA-C on 05/22/2024 at 06:13 AM CDT Sign off status: Pending * Provider: Aramis Gonzalez PA-C Date: 0 03/18/2024 Generated for Oralia han/Haley/eTranagustín on: 0 05/22/2024 06:13 AM CDT History and Physical Notes * HPI (History of Present Illness) Category Sub-Category Detail Notes Category Not es *Introduction I had the pleasure of seeing x Examination Category Sub-Category Detail Notes Category Not es General examination HEENT: pupils equal , round, and reactive to light and accommodation, conjunctiva are injected bilaterally, no tenderness to palpation of the sinuses, TM's without evidence of acute infection, turbinates 2+ swollen and pale inferiorly bilaterally, clear rhinorrhea is present, no polyps noted, no septal perforation, posterior oropharynx is erythematous and cobblestoning is present, erythema on pharyngeal wall, no exudates, no tongue swelling, and uvula is midline Neck, thyroid : supple, non-tender, no anterior cervical lymphadenopathy Heart: RRR, S1-S2, no murmu rs, no rubs, no gallops Lungs: clear to auscultatio n and percussion in all lung gauthier, no wheezes or crackles Abdomen: soft, NT/ND, normal active bowel sounds Extremities: normal ROM, no clubb ing, no cyanosis, no edema General appearance: pleasant, well-devel oped, well-nourished Skin: normal, no rash, evan matographism, urticaria, angioedema Neurologic exam: unremarkable Oral cavity: normal, no lesions Breasts : not performed Peripheral pulses: normal (2+) bilatera lly Back: normal Genitalia: not performed
--- OUTSIDE RECORDS SUMMARY | 2024-05-22 06:14 | XMS_ITS | Encounter Summary ---
Author Organization [facility] Address [address] [place] [address] Care Team Providers Care Mds Rn Name Role Phone Donna Burton PHYSICIAN PRACTICE MARKET MANAGER Primary Care Provider [phone] Encounter Details Date Type Department Care Team (Late st Contact Info) Description 03/20/2024 MyChart Message Enc [facility] [place] [address] [place], [place] [phone] Donna Burton, PHYSICIAN PRACTICE MARKET MANAGER [address] [place], [place] [id number] GI referral Social History Tobacco Use Types Packs/Day Years Used Date Smoking Tobacco: Never Passive Smoke Exposure: Never Smokeless Tobacco: Never Comments:Briefly as a dumb t een Alcohol Use Standard Drinks/Week Comments Yes 6.7 (1 standard drink = 0.6 oz p ure alcohol) social PHQ-2 Answer Date Recorded Patient Health Questionnaire-2 Score 2 03/19/2024 Comments Unknown Sex and Gender Information Value Date Recorded Sex Assigned at Female 03/12/2024 9:51 AM WATER QUALITY TECHNICIAN Legal Sex Female 11:28 PM CDT Gender Identity Female 03/12/2024 9:51 AM WATER QUALITY TECHNICIAN Sexual Orientation Straight 03/12/2024 9: 51 AM WATER QUALITY TECHNICIAN documented as of this encounter Plan of Treatment Upcoming Encounters Date Type Department Care Team (Late st Contact Info) Description 05/27/2024 9:20 AM CDT Appointment [facility] [place] [address] [phone] Angelito Moore, FLUE DUST LABORER 3 [facility] [address] [place] [phone] (Work) 06/19/2024 10:20 AM CDT Office Visit [facility] [place] [address] [place] [address] Donna Burton, PHYSICIAN PRACTICE MARKET MANAGER [address] [facility] [address] [place] [address] 10/16/2024 2:00 PM CDT [facility] [address] [facility], [address] [place] [address] Roney Roth MD [address] [place] [address] documented as of this encounter Visit Diagnoses Not on filedocumented in this encounter Care Teams Mds Rn Relationship Specialty Start Date End Date Donna Burton, PHYSICIAN PRACTICE MARKET MANAGER [address] [facility] [address] [place] [address] PCP - General NURSE PRACTITIONER 02/25/24 documented as of this encounter
--- OUTSIDE RECORDS SUMMARY | 2024-05-22 06:14 | XMS_ITS | Data Portability ---
Author Organization [place] - [place] - Gul chau Alexander, [email or web address]_ENDO_THOMAS_MOBILE [facility] Address [address] [place] [address] Care Team Providers [employer] Social Worker Name Role Phone TARIK MORALES Primary Care Provider [facility] Referring Provider Assessment Encounter Date Assessment Date Assessment LastModified by Organization Details LastModified Time 08/23/2020 08/23/2020 Patient rescheduled appointment vangle Not available 08/23/2020 11:56:52 03/30/2021 03/30/2021 Of note patient was seen for greater than 40 minutes and over half of this time was spent counseling her regarding disease process, stomach care guidelines, need for lab and medication adjustments. vangle Not available 03/30/2021 10:35:20 04/11/2021 04/11/2021 no show vangle Not available 03/16 17:56:08 04/12/2021 04/12/2021 Patient confirmed to be in a location covered by the provider's current licensure Approximately 15minutes were spent in medical discussion with the patient and/or caregiver vangle Not available 04/12/2021 16:14:21 Plan of Treatment Reminders Order Date Submit Date Provider Last Modified By Organization Details Last Modified Time Details Appointments None recorded. Lab lipid panel, serum 2021 022 [facility], [address] [place] [address], [facility] [address], [place], [address], 06:42:27 magnesium, serum or plasma 2021 [facility], [address], [address], [place], [address], 06:42:28 vitamin B1 (thiamine), blood 2021 [facility], [address], [address], [place], [address], 11:01:26 zinc, serum or plasma 2021 [facility], [address], [address], [place], [address], 06:42:29 copper, serum or plasma 2021 [facility], [address], [address], [place], [address], 06:42:28 CMP, serum or plasma 2021 [facility], [address], [address], [place], [address], 06:42:27 vitamin B12, serum 2021 [facility], [address], [address], [place], [address], 06:42:30 CBC w/ auto diff 2021 [facility], [address], [address], [place], [address], 06:42:29 iron + TIBC + ferritin, serum 2021 [facility], [address], [address], [place], [address], 06:42:26 vitamin D, 25-hydroxy, total, serum 2021 [facility], [address] [facility], [address], [place], [address], 06:42:27 urinalysis complete, reflex culture 2021 [facility], [address] [facility], [address], [place], [address], 06:42:29 microalbumi n, urine 2021 [facility], [address] [facility], [address], [place], [address], 06:42:26 Referral None recorded. Procedures None recorded. Surgeries None recorded. Imaging DEXA, axial skeleton [id number] [place] [address] [facility], [address] [facility], [address], [place], [address], 08:14:45 Medication Orders baclofen 10 mg tablet 2021 [id number] [address], [address] [place], [address], 10:13:45 ondansetron 4 mg disintegrat ing tablet 2021 [id number] [address], [address] [place], [address], 10:13:46 FeroSul 325 mg (65 mg iron) tablet 2021 [id number] [address], [address] [place], [address], 10:13:47 clonidine HCl 0.1 mg tablet 2020 021 vangle Not available 09:48:12 Patient TargetsNo targets recorded. Patient Instructions Encounter Date Encounter Id Patient Instructions Last Modified By Organization Details Last Modified Time 09/17/2020 [id number] learning about type 2 diabetes vangle Not available 09/17/2020 13:21:14 type 2 diabetes: care instructions vangle Not available 09/17/2020 13:21:15 A healthy lifestyle: care instructions vangle Not available 09/17/2020 13:21:15 diet and exercis e for metabolic syndrome: care instructions vangle Not available 09/17/2020 13:21:14 03/30/2021 [id number] learning about type 2 diabetes vangle Not available 03/30/2021 10:13:41 type 2 diabetes: care instructions vangle Not available 03/30/2021 10:13:41 nausea and vomiting: care instructions vangle Not available 03/30/2021 10:13:40 A healthy lifestyle: care instructions vangle Not available 03/30/2021 10:13:41 Reason for Referral None Reported. Results Created Date Observation Date Name Description Value Unit Range Abnormal Flag Note LastModifiedBy Organization Detail LastModifiedTime 03/31/19 22 04/05/2021 IRON, TIBC AND RAGHU TIN PANEL iron, total 95 mcg/d L 40-190 normal Not Available [employer] [facility] [address] [place], [address], 04/05/2021 06:42:26 03/31/19 22 04/05/2021 IRON, TIBC AND RAGHU TIN PANEL iron binding capacity 391 mcg/d L_(ca lc) 250-45 0 normal Not Available [employer] [facility] [address] [place], [address], 04/05/2021 06:42:26 03/31/19 22 04/05/2021 IRON, TIBC AND RAGHU TIN PANEL % saturation 24 %_(ca lc) 16-45 normal Not Available [employer] [facility] [address] [place], [address], 04/05/2021 06:42:26 03/31/19 22 04/05/2021 IRON, TIBC AND RAGHU TIN PANEL ferritin 29 NG/mL 16-232 normal Not Available [facility] [place] [facility] [address], [place], [address], 04/05/2021 06:42:26 03/31/19 22 04/05/2021 ALBUM IN, RANDO M URINE W/O CREAT ININE albumin, urine 0.2 mg/dL see note: normal Refer ence Range : Refer ence Range Not estab lishe d Not Available [facility] [place] [facility] [address], [place], [address], 04/05/2021 06:42:26 03/31/19 22 04/05/2021 ALBUM IN, RANDO M URINE W/O CREAT ININE JG The ADA defin es abnor malit ies in album in excre tion as follo ws: Album inuri a Categ ory Resul t (mcg/ mg creat inine ) Elham l to Mildl y incre ased <30 Moder ately incre ased 30-29 9 Sever feliz incre ased > OR = 300 The ADA recom mends that at least two of three speci mens colle cted withi n a 3-6 month perio d be abnor mal befor e consi brian g a patie nt to be withi n a diagn ostic categ ory. Not Available [facility] [place] [facility] [address], [place], [address], 04/05/2021 06:42:26 03/31/19 22 04/05/2021 LIPID PANEL , STAND LAURA cholesterol, total 161 mg/dL <200 normal Not Available [facility] [place] [facility] [address], [place], [address], 04/05/2021 06:42:27 03/31/19 22 04/05/2021 LIPID PANEL , STAND LAURA HDL cholesterol 53 mg/dL > or = 50 normal Not Available [facility] [place] [facility] [address], [place], [address], 04/05/2021 06:42:27 03/31/19 22 04/05/2021 LIPID PANEL , STAND LAURA triglyceride s 85 mg/dL <150 normal Not Available [facility] [place] [facility] [address], [place], [address], 04/05/2021 06:42:27 03/31/19 22 04/05/2021 LIPID PANEL , STAND LAURA LDL-choleste rol 90 mg/dL _(kaila c) normal Refer ence range : <100 Fletcher able range <100 mg/dL for prima ry preve ntion ; <70 mg/dL for patie nts with CHD or diabe tic patie nts with > or = 2 CHD risk facto rs. LDL-C is now calcu lated using the Lesley trejo-Hop kins calcu amaya n, which is a valid ated novel metho d provi ding aster r accur acy than the Fried ion equat ion in the estim ation of LDL-C . Lesley trejo SS et al. HECTOR. 2013; 310(1 9): 2061- 2068 (http ://ed ucati on.Qu Chu Pingwyn. com/f aq/FA Q164) Not Available [facility] [place] [facility] [address], [place], [address], 04/05/2021 06:42:27 03/31/19 22 04/05/2021 LIPID PANEL , STAND LAURA chol/HDLC ratio 3.0 (calc ) <5.0 normal Not Available [facility] [place] [facility] [address], [place], [address], 04/05/2021 06:42:27 03/31/19 22 04/05/2021 LIPID PANEL , STAND LAURA non HDL cholesterol 108 mg/dL _(kaila c) <130 normal For patie nts with diabe janice plus 1 major ASCVD risk facto r, treat ing to a non-H DL-C goal of <100 mg/dL (LDL- C of <70 mg/dL ) is consi dered a thera peuti c optio n. Not Available [facility] [address], [place], [address], 04/05/2021 06:42:27 03/31/19 22 04/05/2021 COMPR EHENS GUY METAB OLIC PANEL glucose 117 mg/dL 65-99 high Fasti ng refer ence inter roby For someo ne witho ut known diabe janice, a gluco se value betwe en 100 and 125 mg/dL is consi stent with predi abete s and shoul d be confi rmed with a follo w-up test. Not Available [facility] [address], [place], [address], 04/05/2021 06:42:27 03/31/19 22 04/05/2021 COMPR EHENS GUY METAB OLIC PANEL urea nitrogen (BUN) 18 mg/dL 7-25 normal Not Available [facility] [address], [place], [address], 04/05/2021 06:42:27 03/31/19 22 04/05/2021 COMPR EHENS GUY METAB OLIC PANEL creatinine 0.92 mg/dL 0.50-1 .10 normal Not Available [facility] [address], [place], [address], 04/05/2021 06:42:27 03/31/19 22 04/05/2021 COMPR EHENS GUY METAB OLIC PANEL eGFR non-afr. gambian 73 mL/mi n/1.7 3m2 > or = 60 normal Not Available [facility] [address], [place], [address], 04/05/2021 06:42:27 03/31/19 22 04/05/2021 COMPR EHENS GUY METAB OLIC PANEL eGFR 85 mL/mi n/1.7 3m2 > or = 60 normal Not Available [facility] [address], [place], [address], 04/05/2021 06:42:27 03/31/19 22 04/05/2021 COMPR EHENS GUY METAB OLIC PANEL BUN/creatini ne ratio NOT APPLIC ABLE (calc ) 6-22 Not Available [facility] [address], [place], [address], 04/05/2021 06:42:27 03/31/19 22 04/05/2021 COMPR EHENS GUY METAB OLIC PANEL sodium 135 mmol/ L 135-14 6 normal Not Available [facility] [address], [place], [address], 04/05/2021 06:42:27 03/31/19 22 04/05/2021 COMPR EHENS GUY METAB OLIC PANEL potassium 4.1 mmol/ L 3.5-5. 3 normal Not Available [facility] [address], [place], [address], 04/05/2021 06:42:27 03/31/19 22 04/05/2021 COMPR EHENS GUY METAB OLIC PANEL chloride 94 mmol/ L 98-110 low Not Available [facility] [address], [place], [address], 04/05/2021 06:42:27 03/31/19 22 04/05/2021 COMPR EHENS GUY METAB OLIC PANEL carbon dioxide 32 mmol/ L 20-32 normal Not Available [employer] [facility] [address], [place], [address], 04/05/2021 06:42:27 03/31/19 22 04/05/2021 COMPR EHENS GUY METAB OLIC PANEL calcium 9.4 mg/dL 8.6-10 .2 normal Not Available [employer] [facility] [address], [place], [address], 04/05/2021 06:42:27 03/31/19 22 04/05/2021 COMPR EHENS GUY METAB OLIC PANEL protein, total 6.3 g/dL 6.1-8. 1 normal Not Available [employer] [facility] [address], [place], [address], 04/05/2021 06:42:27 03/31/19 22 04/05/2021 COMPR EHENS GUY METAB OLIC PANEL albumin 3.9 g/dL 3.6-5. 1 normal Not Available [employer] [facility] [address], [place], [address], 04/05/2021 06:42:27 03/31/19 22 04/05/2021 COMPR EHENS GUY METAB OLIC PANEL globulin 2.4 g/dL_ (calc ) 1.9-3. 7 normal Not Available [employer] [facility] [address], [place], [address], 04/05/2021 06:42:27 03/31/19 22 04/05/2021 COMPR EHENS GUY METAB OLIC PANEL albumin/glob ulin ratio 1.6 (calc ) 1.0-2. 5 normal Not Available [employer] [facility] [address], [place], [address], 04/05/2021 06:42:27 03/31/19 22 04/05/2021 COMPR EHENS GUY METAB OLIC PANEL bilirubin, total 0.5 mg/dL 0.2-1. 2 normal Not Available [employer] [facility] [address], [place], [address], 04/05/2021 06:42:27 03/31/19 22 04/05/2021 COMPR EHENS GUY METAB OLIC PANEL alkaline phosphatase 282 U/L 31-125 high Not Available [facility] [employer] [facility] [place] [facility] [address], [place], [address], 04/05/2021 06:42:27 03/31/19 22 04/05/2021 COMPR EHENS GUY METAB OLIC PANEL AST 137 U/L 10-35 high Not Available [facility] [place] [facility] [address], [place], [address], 04/05/2021 06:42:27 03/31/19 22 04/05/2021 COMPR EHENS GUY METAB OLIC PANEL ALT 150 U/L 6-29 high Not Available [facility] [place] [facility] [address], [place], [address], 04/05/2021 06:42:27 03/31/19 22 04/05/2021 VITAM IN D,25- OH,TO EMILY,I A vitamin D,25-oh,tota l,ia 24 NG/mL 30-100 low Vitam in D Statu s 25-OH Vitam in D: Defic iency : <20 ng/mL Insuf ficie ncy: 20 - 29 ng/mL Optim al: > or = 30 ng/mL For 25-OH Vitam in D testi ng on patie nts on D2-iglesias pplem entat ion and patie nts for whom quant itati on of D2 and D3 fract ions is requi red, the [facility] e[facility](TM ) 25-OH VIT D, (D2,D 3), LC/MS /MS is recom corinna d: order code 31226 (jennifer ents >2yrs ). See Note 1 Note 1 For addit ional infor natasha ulrich e refer to http: //holli Broussard gnost ics.c om/fa q/FAQ 199 (This link is being provi ded for infor alia vital/ educrashid lee purpo ses only. ) Not Available [facility] [place] [facility] [address], [place], [address], 04/05/2021 06:42:27 02/17/20 22 04/05/2021 MAGNE SIUM magnesium 1.6 mg/dL 1.5-2. 5 normal Not Available [facility] [place] [facility] [address], [place], [address], 04/05/2021 06:42:28 03/31/19 22 04/05/2021 COPPE R copper 106 mcg/d L 70-175 This test was devel oped and its milton tical perfo rmanc e janelle cteri stics have been deter mined by [employer] [facility] [place], [place]. It has not been clear ed or appro char by the U.S. Food and Drug Admin istra tion. This assay has been valid ated pursu ant to the CLIA regul ation s and is used for clini kaila purpo ses. Not Available [facility] [place] [facility] [address], [place], [address], 04/05/2021 06:42:28 03/31/19 22 04/05/2021 ZINC zinc 69 mcg/d L 60-130 This test was devel oped and its milton tical perfo rmanc e janelle cteri stics have been deter mined by [employer] [facility], [place]. It has not been clear ed or appro char by the U.S. Food and Drug Admin istra tion. This assay has been valid ated pursu ant to the CLIA regul ation s and is used for clini kaila purpo ses. Not Available [facility] [place] [facility] [address], [place], [address], 04/05/2021 06:42:28 03/31/19 22 04/05/2021 CBC (INCL UDES DIFF/ PLT) white blood cell count 5.0 thous and/u L 3.8-10 .8 normal Not Available [facility] [place] [facility] [address], [place], [address], 04/05/2021 06:42:29 03/31/19 22 04/05/2021 CBC (INCL UDES DIFF/ PLT) red blood cell count 4.74 silvia on/uL 3.80-5 .10 normal Not Available [facility] [address], [place], [address], 04/05/2021 06:42:29 03/31/19 22 04/05/2021 CBC (INCL UDES DIFF/ PLT) hemoglobin 13.4 g/dL 11.7-1 5.5 normal Not Available [facility] [address], [place], [address], 04/05/2021 06:42:29 03/31/19 22 04/05/2021 CBC (INCL UDES DIFF/ PLT) hematocrit 41.2 % 35.0-4 5.0 normal Not Available [facility] [address], [place], [address], 04/05/2021 06:42:29 03/31/19 22 04/05/2021 CBC (INCL UDES DIFF/ PLT) MCV 86.9 fL 80.0-1 00.0 normal Not Available [facility] [address], [place], [address], 04/05/2021 06:42:29 03/31/19 22 04/05/2021 CBC (INCL UDES DIFF/ PLT) MCH 28.3 pg 27.0-3 3.0 normal Not Available [facility] [address], [place], [address], 04/05/2021 06:42:29 03/31/19 22 04/05/2021 CBC (INCL UDES DIFF/ PLT) MCHC 32.5 g/dL 32.0-3 6.0 normal Not Available [facility] [address], [place], [address], 04/05/2021 06:42:29 03/31/19 22 04/05/2021 CBC (INCL UDES DIFF/ PLT) RDW 13.0 % 11.0-1 5.0 normal Not Available [facility] [address], [place], [address], 04/05/2021 06:42:29 03/31/19 22 04/05/2021 CBC (INCL UDES DIFF/ PLT) platelet count 354 thous and/u L 140-40 0 normal Not Available [facility] [address], [place], [address], 04/05/2021 06:42:29 03/31/19 22 04/05/2021 CBC (INCL UDES DIFF/ PLT) MPV 10.5 fL 7.5-12 .5 normal Not Available [facility] [address], [place], [address], 04/05/2021 06:42:29 03/31/19 22 04/05/2021 CBC (INCL UDES DIFF/ PLT) absolute neutrophils 3185 cells /uL 1500-7 800 normal Not Available [facility] [address], [place], [address], 04/05/2021 06:42:29 03/31/19 22 04/05/2021 CBC (INCL UDES DIFF/ PLT) absolute lymphocytes 1340 cells /uL 850-39 00 normal Not Available [facility] [address], [place], [address], 04/05/2021 06:42:29 03/31/19 22 04/05/2021 CBC (INCL UDES DIFF/ PLT) absolute monocytes 435 cells /uL 200-95 0 normal Not Available [facility] [address], [place], [address], 04/05/2021 06:42:29 03/31/19 22 04/05/2021 CBC (INCL UDES DIFF/ PLT) absolute eosinophils 20 cells /uL 15-500 normal Not Available [facility] [address], [place], [address], 04/05/2021 06:42:29 03/31/19 22 04/05/2021 CBC (INCL UDES DIFF/ PLT) absolute basophils 20 cells /uL 0-200 normal Not Available [facility] [place] [facility] [address], [place], [address], 04/05/2021 06:42:29 03/31/19 22 04/05/2021 CBC (INCL UDES DIFF/ PLT) neutrophils 63.7 % normal Not Available [facility] [address], [place], [address], 04/05/2021 06:42:29 03/31/19 22 04/05/2021 CBC (INCL UDES DIFF/ PLT) lymphocytes 26.8 % normal Not Available [facility] [place] [facility] [address], [place], [address], 04/05/2021 06:42:29 03/31/19 22 04/05/2021 CBC (INCL UDES DIFF/ PLT) monocytes 8.7 % normal Not Available [facility] [address], [place], [address], 04/05/2021 06:42:29 03/31/19 22 04/05/2021 CBC (INCL UDES DIFF/ PLT) eosinophils 0.4 % normal Not Available [facility] [address], [place], [address], 04/05/2021 06:42:29 03/31/19 22 04/05/2021 CBC (INCL UDES DIFF/ PLT) basophils 0.4 % normal Not Available [facility] [address], [place], [address], 04/05/2021 06:42:29 03/31/19 22 04/05/2021 URINA LYSIS , COMPL ETE W/REF [place] TO CULTU RE color DARK YELLOW yellow normal Not Available [facility] [place] [facility] [address], [place], [address], 04/05/2021 06:42:29 03/31/19 22 04/05/2021 URINA LYSIS , COMPL ETE W/REF [place] TO CULTU RE appearance CLEAR clear normal Not Available [facility] [place] [facility] [address], [place], [address], 04/05/2021 06:42:29 03/31/1904/05/2021 URINA LYSIS , COMPL ETE W/REF [place] TO CULTU RE specific gravity 1.026 1.001- 1.035 normal Not Available [facility] [address], [place], [address], 04/05/2021 06:42:29 03/31/1904/05/2021 URINA LYSIS , COMPL ETE W/REF [place] TO CULTU RE pH 7.0 5.0-8. 0 normal Not Available [facility] [place] [facility] [address], [place], [address], 04/05/2021 06:42:29 03/31/19 22 04/05/2021 URINA LYSIS , COMPL ETE W/REF [place] TO CULTU RE glucose NEGATI VE negati ve normal Not Available [facility] [place] [facility] [address], [place], [address], 04/05/2021 06:42:29 03/31/19 22 04/05/2021 URINA LYSIS , COMPL ETE W/REF [place] TO CULTU RE bilirubin NEGATI VE negati ve normal Not Available [facility] [address], [place], [address], 04/05/2021 06:42:29 03/31/19 22 04/05/2021 URINA LYSIS , COMPL ETE W/REF [place] TO CULTU RE ketones NEGATI VE negati ve normal Not Available [facility] [place] [facility] [address], [place], [address], 04/05/2021 06:42:29 03/31/19 22 04/05/2021 URINA LYSIS , COMPL ETE W/REF [place] TO CULTU RE occult blood NEGATI VE negati ve normal Not Available [facility] [place] [facility] [address], [place], [address], 04/05/2021 06:42:29 03/31/19 22 04/05/2021 URINA LYSIS , COMPL ETE W/REF [place] TO CULTU RE protein NEGATI VE negati ve normal Not Available [facility] [place] [facility] [address], [place], [address], 04/05/2021 06:42:29 03/31/19 22 04/05/2021 URINA LYSIS , COMPL ETE W/REF [place] TO CULTU RE nitrite NEGATI VE negati ve normal Not Available [facility] [place] [facility] [address], [place], [address], 04/05/2021 06:42:29 03/31/19 22 04/05/2021 URINA LYSIS , COMPL ETE W/REF [place] TO CULTU RE leukocyte esterase NEGATI VE negati ve normal Not Available [facility] [place] [facility] [address], [place], [address], 04/05/2021 06:42:29 03/31/19 22 04/05/2021 URINA LYSIS , COMPL ETE W/REF [place] TO CULTU RE WBC NONE SEEN /hpf < or = 5 normal Not Available [facility] [place] [facility] [address], [place], [address], 04/05/2021 06:42:29 03/31/19 22 04/05/2021 URINA LYSIS , COMPL ETE W/REF [place] TO CULTU RE RBC NONE SEEN /hpf < or = 2 normal Not Available [facility] [place] [facility] [address], [place], [address], 04/05/2021 06:42:29 03/31/19 22 04/05/2021 URINA LYSIS , COMPL ETE W/REF [place] TO CULTU RE squamous epithelial cells NONE SEEN /hpf < or = 5 normal Not Available [facility] [place] [facility] [address], [place], [address], 04/05/2021 06:42:29 03/31/19 22 04/05/2021 URINA LYSIS , COMPL ETE W/REF [place] TO CULTU RE bacteria NONE SEEN /hpf none seen normal Not Available [facility] [place] [facility] [address], [place], [address], 04/05/2021 06:42:29 03/31/19 22 04/05/2021 URINA LYSIS , COMPL ETE W/REF [place] TO CULTU RE hyaline cast NONE SEEN /lpf none seen normal Not Available [facility] [place] [facility] [address], [place], [address], 04/05/2021 06:42:29 03/31/19 22 04/05/2021 REFLE XIVE URINE CULTU RE reflexive urine culture NO CULTU RE INDIC ATED Not Available [facility] [place] [facility] [address], [place], [address], 04/05/2021 06:42:30 03/31/19 22 04/05/2021 VITAM IN B12 vitamin B12 620 pg/mL 200-11 00 normal Not Available [facility] [place] [facility] [address], [place], [address], 04/05/2021 06:42:30 03/31/19 22 04/05/2021 VITAM IN B1 (THIA MINE) , BLOOD , LC/MS /MS vitamin B1 (thiamine), blood, lc/MS/MS 59 nmol/ L 78-185 low Vitam in suppl ement atvenkat withi n 24 hours prior to blood draw may affec t the accur acy of the resul ts. This test was devel oped and its milton tical perfo rmanc e janelle cteri stics have been deter mined by [facility] [place]. It has not been clear ed or appro char by the U.S. Food and Drug Admin istra tion. This assay has been valid ated pursu ant to the CLIA regul ation s and is used for clini kaila purpo ses. Not Available [facility] [place] [facility] [address], [place], [address], 04/05/2021 11:01:26 Result Notes None recorded. Problems Name Problem SNOMED Code Status Onset Date Resolution Date Notes Provider Name and Address Organization Details Recorded Time Sleep apnea [id number] Active Sharon Barajas null, [place] [facility] 6 13:35:21 Type 2 diabetes mellitus [id number] Active 2015 Mirta Brenden null, [facility] 6 10:01:49 Type 2 diabetes mellitus without complicatio n [id number] Completed 201504/28/2020 Deanna Hood APRN [address], [place], [address], [place] [facility] 1 12:10:44 Disorder of nervous system due to type 2 diabetes mellitus [id number] Completed 04/28/2020 Deanna Hood APRN [address], [place], [address], [facility] [place] [facility] 1 12:11:02 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 Active Sharon Barajas null, [facility] 6 13:35:21 Pure hypercholes terolemia [id number] Completed 04/28/2020 Deanna Hood APRN [address], [place], [address], [facility] - [facility] 1 12:10:53 Uncontrolle d type 2 diabetes mellitus [id number] Completed 04/28/2020 Deanna Hood APRN [address], [place], [address], [facility] 1 12:10:49 Vitamin D deficiency 64683715 Active Sharon Peloquin null, [facility] 6 13:35:21 Obesity 941350358 Active Sharon Peloquin null, [facility] 6 13:35:21 Essential hypertensio n 48228071 Active Sharon Peloquin null, [facility] 6 13:35:21 Narcolepsy 67402257 Active Cascilla Peloquin null, [facility] 6 13:35:21 Obstructive sleep apnea syndrome 23603675 Active Cascilla Peloquin null, [facility] 6 13:35:21 Problem Notes None recorded. Procedures Surgical History Date Name Laterality Status Provider Name and Address Organization Details Recorded Time 9 Date of Last Mammogram completed Junie Manning [facility] 06/19/2018 08:43:20 9 Mammogram screening completed Junie Manning [facility] 06/19/2018 08:43:48 6 Gastric bypass for obesity completed [facility] [place] 10/29/2015 14:53:37 1 Section completed Aparna Angelika [facility] 04/28/2020 11:41:45 0 Back Surgery completed [facility] [place] 10/29/2015 14:53:12 9 Endometrial Ablation completed [facility] [place] 10/29/2015 14:53:41 8 Section completed Aparna Carney [facility] 04/28/2020 11:41:39 01/01/199 3 Section completed Aparna Carney [facility] 04/28/2020 11:41:22 Tubal Ligation completed [facility] [place] 10/29/2015 14:54:08 Removal of tonsils completed [facility] [place] 10/29/2015 14:54:04 Gallbladder Surgery completed [facility] [place] 10/29/2015 14:53:56 Imaging Results None recorded. Procedure Notes None recorded. Medical Equipment None Reported. Allergies Allergen ID Allergen Name Allergen Category Reaction Reaction Severity Criticality Documentation Date Start Date Code Code System Note Provider Name and Address Organization Details Recorded Time 99775 codeine medicatio n nausea vomiting Not available Not available Not available 05/28/2015 2670 RxNorm Sharon Gellerokalyn [facility] [place] 6 13:35:21 04485 Demerol medicatio n nausea vomiting Not available Not available Not available 05/28/2015 71286 1 RxNorm Sharon Peloquin [facility] [place] 6 13:35:21 66954 meperidin e medicatio n nausea vomiting Not available Not available Not available 05/28/2015 6754 RxNorm Sharon Peloquin [facility] [place] 6 13:35:21 06422 metformin medicatio n diarrhea other Not available Not available Not available 05/28/2015 6809 RxNorm Stoma ch upset Vikki Penny [facility] [place] 6 08:44:14 12381 Substance with sulfonami de structure and antibacte rial mechanism of action (substanc e) medicatio n itching rash Not available Not available Not available 05/28/2015 30649 8003 SNOMED Sharon Peloquin [facility] [place] 6 13:35:21 Medications Name Sig Start Date Stop Date Status Note LastModified by Organization Details LastModified Time blood pressure home kit (keyonna 06/19 completed Not Available Not Available Not Available cyclobenz aprine 10 mg tablet TAKE ONE-HALF TO ONE TABLET TWO TIMES A DAY NEEDED 09/17 completed Not Available Not Available Not Available methocarb ayan 500 mg tablet TAKE TWO TABLETS BY MOUTH FOUR TIMES A DAY NEEDED 04/28 completed Not Available Not Available Not Available metformin 500 mg tablet TAKE ONE TABLET BY MOUTH TWICE A DAY active Not Available Not Available No t Available clonidine HCl 0.1 mg tablet take 1 tablet by mouth now for acute HTN 03/30 completed OBSERVED NON REACTION Not Available Not Available Not Available gabapenti n 600 mg tablet active Not Available Not Available Not Available doxycycli ne hyclate 100 mg capsule active Not Available Not Available Not Available venlafaxi ne 75 mg tablet TAKE ONE TABLET BY MOUTH TWICE A DAY 03/30 completed Not Available Not Available Not Available trazodone 50 mg tablet 06/19 completed Not Available Not Available Not Available azithromy wilfrido 250 mg tablet 06/19 completed Not Available Not Available Not Available pravastat in 40 mg tablet Take 1 tablet every day by oral route at bedtime. 07/04 completed Not Available Not Available Not Available amitripty line 75 mg tablet 05/31 completed Not Available Not Available Not Available tizanidin e 4 mg tablet 05/31 completed Not Available Not Available Not Available fluconazo le 150 mg tablet TAKE ONE TABLET BY MOUTH THREE TIMES A WEEK NEEDED FOR 7 DAYS active Not Available Not Available No t Available hydrocodo ne 5 mg-acetam inophen 325 mg tablet 06/19 completed Not Available Not Available Not Available sucralfat e 100 mg/mL oral suspensio n TAKE 10 ML BY MOUTH THREE TIMES A DAY WITH A MEAL active Not Available Not Available No t Available ondansetr on HCl 8 mg tablet 06/19 completed Not Available Not Available Not Available sucralfat e 1 gram tablet TAKE ONE TABLET BY MOUTH THREE TIMES A DAY active Not Available Not Available No t Available phenazopy ridine 200 mg tablet active Not Available Not Available Not Available lisinopri l 20 mg tablet TAKE TWO TABLETS BY MOUTH DAILY 05/31 completed Not Available Not Available Not Available ondansetr on HCl 4 mg tablet 05/31 completed Not Available Not Available Not Available prednison e 20 mg tablet active Not Available Not Available Not Available valsartan 160 mg-hydroc hlorothia zide 12.5 mg tablet TAKE ONE TABLET BY MOUTH ONE TIME DAILY active Not Available Not Available No t Available Lantus U-100 Insulin 100 unit/mL subcutane ous solution 05/31 completed Not Available Not Available Not Available clindamyc in HCl 150 mg capsule 06/19 completed Not Available Not Available Not Available diphenoxy late-atro pine 2.5 mg-0.025 mg tablet 04/28 completed Not Available Not Available Not Available Nexium 40 mg capsule,d elayed release 05/31 completed Not Available Not Available Not Available metronida zole 500 mg tablet 04/28 completed Not Available Not Available Not Available ciproflox acin 250 mg tablet 06/19 completed Not Available Not Available Not Available doxepin 10 mg capsule 06/19 completed Not Available Not Available Not Available morphine ER 30 mg tablet,ex tended release 05/31 completed Not Available Not Available Not Available hydrocodo ne 10 mg-acetam inophen 325 mg tablet 05/31 completed Not Available Not Available Not Available omeprazol e 40 mg capsule,d elayed release 05/31 completed Not Available Not Available Not Available tramadol 50 mg tablet TAKE ONE TABLET BY MOUTH EVERY 6 HOURS NEEDED FOR NON ACUTE PAIN active Not Available Not Available No t Available lidocaine -prilocai ne 2.5 %-2.5 % topical cream 05/31 completed Not Available Not Available Not Available baclofen 20 mg tablet 04/28 completed Not Available Not Available Not Available valsartan 80 mg-hydroc hlorothia zide 12.5 mg tablet TAKE ONE TABLET BY MOUTH ONE TIME DAILY 08/23 completed Not Available Not Available Not Available losartan 100 mg-hydroc hlorothia zide 25 mg tablet 04/28 completed Not Available Not Available Not Available oxycodone -acetamin ophen 5 mg-325 mg tablet TAKE ONE TABLET BY MOUTH EVERY 6 HOURS NEEDED FOR PAIN 03/30 completed Not Available Not Available Not Available propranol ol 40 mg tablet TAKE ONE TABLET BY MOUTH TWICE A DAY 03/30 completed Not Available Not Available Not Available hydromorp criss 2 mg tablet 05/31 completed Not Available Not Available Not Available famotidin e 20 mg tablet Take 1 tablet twice a day by oral route. 06/19 completed Not Available Not Available Not Available pravastat in 80 mg tablet 05/31 completed Not Available Not Available Not Available amitripty line 25 mg tablet 05/31 completed Not Available Not Available Not Available modafinil 200 mg tablet 05/31 completed Not Available Not Available Not Available lorazepam 0.5 mg tablet 06/19 completed Not Available Not Available Not Available methocarb ayan 750 mg tablet TAKE 1 TABLET BY MOUTH THREE TIMES DAILY NEEDED FOR PAIN 04/28 completed Not Available Not Available Not Available temazepam 15 mg capsule 06/19 completed Not Available Not Available Not Available oxycodone -acetamin ophen 10 mg-325 mg tablet 06/19 completed Not Available Not Available Not Available dicyclomi ne 20 mg tablet TAKE ONE TABLET BY MOUTH TWICE A DAY ; MUST MAKE APPOINTM ENT FOR ANY FURTHER REFILLS 03/30 completed Not Available Not Available Not Available dexametha sone 1 mg tablet 06/19 completed Not Available Not Available Not Available amitripty line 10 mg tablet 05/31 completed Not Available Not Available Not Available diazepam 2 mg tablet 05/31 completed Not Available Not Available Not Available phenazopy ridine 100 mg tablet TAKE 1 TABLET BY MOUTH THREE TIMES DAILY FOR 3 DAYS 04/28 completed Not Available Not Available Not Available baclofen 10 mg tablet TAKE ONE TABLET BY MOUTH THREE TIMES A DAY active Not Available Not Available No t Available glipizide ER 2.5 mg tablet, extended release 24 hr 06/19 completed Not Available Not Available Not Available dexametha sone 2 mg tablet 06/19 completed Not Available Not Available Not Available hydrocodo ne 7.5 mg-acetam inophen 325 mg tablet TAKE ONE TABLET BY MOUTH EVERY 12 HOURS NEEDED FOR PAIN 03/30 completed Not Available Not Available Not Available pantopraz ole 40 mg tablet,de layed release TAKE ONE TABLET BY MOUTH TWICE A DAY active Not Available Not Available No t Available Cipro 500 mg tablet Take 1 tablet every 12 hours by oral route. 04/28 completed Not Available Not Available Not Available triamcino lone acetonide 0.1 % topical ointment 06/19 completed Not Available Not Available Not Available ranitidin e 150 mg tablet 05/31 completed Not Available Not Available Not Available clotrimaz ole-betam ethasone 1 %-0.05 % topical cream 10/28 completed Not Available Not Available Not Available lisinopri l 10 mg tablet Take 1 tablet every day by oral route. 04/28 completed Not Available Not Available Not Available promethaz ine 25 mg tablet TAKE ONE TABLET BY MOUTH TWICE A DAY active Not Available Not Available No t Available metoprolo l tartrate 50 mg tablet TAKE ONE TABLET BY MOUTH EVERY TWELVE HOURS 05/31 completed Not Available Not Available Not Available gabapenti n 300 mg capsule TAKE ONE CAPSULE BY MOUTH ONE TIME DAILY AT BEDTIME active Not Available Not Available No t Available buspirone 7.5 mg tablet TAKE ONE TABLET BY MOUTH TWICE A DAY active Not Available Not Available No t Available monteluka st 10 mg tablet TAKE ONE TABLET BY MOUTH ONE TIME DAILY 04/28 completed Not Available Not Available Not Available hydroxyzi ne HCl 25 mg tablet TAKE ONE TO TWO TABLETS BY MOUTH THREE TIMES DAILY active Not Available Not Available No t Available morphine ER 15 mg tablet,ex tended release 05/31 completed Not Available Not Available Not Available mupirocin 2 % topical ointment 06/19 completed Not Available Not Available Not Available diclofena c sodium 50 mg tablet,de layed release TAKE 1 TABLET BY MOUTH THREE TIMES DAILY FOR 5 DAYS 04/28 completed Not Available Not Available Not Available gabapenti n 100 mg capsule 08/30 completed Not Available Not Available Not Available metoprolo l succinate ER 25 mg tablet,ex tended release 24 hr Take 1 tablet twice a day by oral route. 06/19 completed Not Available Not Available Not Available ergocalci ferol (vitamin D2) 1,250 mcg (50,000 unit) capsule TAKE ONE CAPSULE BY MOUTH THREE TIMES A WEEK 04/12 completed Not Available Not Available Not Available nystatin 100,000 unit/gram topical powder 10/28 completed Not Available Not Available Not Available Transderm -Scop 1 mg over 3 days transderm al patch 04/28 completed Not Available Not Available Not Available fentanyl 25 mcg/hr transderm al patch 04/28 completed Not Available Not Available Not Available oxycodone -acetamin ophen 7.5 mg-325 mg tablet Take 1 tablet every 6 hours by oral route for 30 days. 04/28 completed Not Available Not Available Not Available levofloxa wilfrido 750 mg tablet 06/19 completed Not Available Not Available Not Available zolpidem 10 mg tablet 06/19 completed Not Available Not Available Not Available neomycin 500 mg tablet 05/31 completed Not Available Not Available Not Available hydrocodo ne 10 mg-chlorp heniramin e 8 mg/5 mL oral susp extend.re l 12hr active Not Available Not Available Not Available albuterol sulfate HFA 90 mcg/actua tion aerosol inhaler INHALE TWO PUFFS BY MOUTH EVERY 4 HOURS NEEDED active Not Available Not Available No t Available clomipram ine 25 mg capsule TAKE ONE CAPSULE BY MOUTH THREE TIMES A DAY active Not Available Not Available No t Available hydromorp criss 4 mg tablet 10/28 completed Not Available Not Available Not Available methadone 5 mg tablet 05/31 completed Not Available Not Available Not Available fentanyl 75 mcg/hr transderm al patch 05/31 completed Not Available Not Available Not Available ondansetr on 4 mg disintegr ating tablet PLACE ONE TABLET ON THE TONGUE THREE TIMES A DAY NEEDED active Not Available Not Available No t Available cefdinir 300 mg capsule active Not Available Not Available Not Available fluticaso ne propionat e 50 mcg/actua tion nasal spray,rianna pension 06/19 completed Not Available Not Available Not Available metformin ER 500 mg tablet,ex tended release 24 hr Take 1 tablet twice a day by oral route. 05/31 completed Not Available Not Available Not Available ipratropi um bromide 21 mcg (0.03 %) nasal spray 06/19 completed Not Available Not Available Not Available Enulose 10 gram/15 mL oral solution active Not Available Not Available Not Available diazepam 5 mg tablet TAKE ONE TABLET BY MOUTH NEEDED TAKE 30 MINUTES PRIOR TO PROCEDUR E. MUST HAVE SOUS CHEF active Not Available Not Available No t Available amoxicill in 875 mg-potass ium clavulana te 125 mg tablet TAKE ONE TABLET BY MOUTH TWICE A DAY FOR 5 DAYS 08/23 completed Not Available Not Available Not Available buspirone 15 mg tablet TAKE ONE TABLET BY MOUTH TWICE A DAY active Not Available Not Available No t Available oxycodone 5 mg tablet 06/19 completed Not Available Not Available Not Available modafinil 100 mg tablet Take 1 tablet by oral route for 23 days. 03/17 /2021 completed Not Available Not Available Not Available Xyrem 500 mg/mL oral solution Use as Directed active Not Available Not Available No t Available metoprolo l tartrate 25 mg tablet 06/19 completed Not Available Not Available Not Available nitrofura ntoin monohydra te/macroc rystals 100 mg capsule 06/19 completed Not Available Not Available Not Available duloxetin e 30 mg capsule,d elayed release TAKE ONE CAPSULE BY MOUTH TWICE A DAY 03/30 completed Not Available Not Available Not Available fentanyl 12 mcg/hr transderm al patch Apply 1 patch every 72 hours by transder m. route for 30 days. 06/19 completed Not Available Not Available Not Available Lyrica 75 mg capsule 05/31 completed Not Available Not Available Not Available Lyrica 150 mg capsule 05/31 completed Not Available Not Available Not Available potassium Use as Directed 07/04 completed Not Available Not Available Not Available calcium citrate Use as Directed 07/04 completed Not Available Not Available Not Available Dilaudid 08/30 completed Not Available Not Available Not Available Unifine Pentips 31 gauge x 1/4 needle 05/31 completed Not Available Not Available Not Available Januvia 100 mg tablet TAKE ONE TABLET BY MOUTH DAILY 08/30 completed Not Available Not Available Not Available FeroSul 325 mg (65 mg iron) tablet TAKE ONE TABLET BY MOUTH ONE TIME DAILY 2021 active Not Available Not Available Not Avai lable Humalog KwikPen (U-100) Insulin 100 unit/mL subcutane ous 05/31 completed Not Available Not Available Not Available biotin 2,500 mcg capsule Take 2 capsules every day by oral route. 07/04 completed Not Available Not Available Not Available Nuvigil 250 mg tablet 05/31 completed Not Available Not Available Not Available B12 5000 mg weekly 07/04 completed Not Available Not Available Not Available Suprep Bowel Prep Kit 17.5 gram-3.13 gram-1.6 gram oral solution 06/19 completed Not Available Not Available Not Available Flkevin es Gummies 2 Tablets Daily 07/04 completed Not Available Not Available Not Available BD Insulin Syringe Ultra-Fin e 1 mL 31 gauge x 5/16 05/31 completed Not Available Not Available Not Available Opana ER 5 mg tablet, crush resistant , extended release 05/31 completed Not Available Not Available Not Available Trulicity 1.5 mg/0.5 mL subcutane ous pen injector INJECT THE CONTENTS OF ONE PEN UNDER THE SKIN WEEKLY ON THE SAME DAY EACH WEEK 04/28 completed Not Available Not Available Not Available OxyContin 10 mg tablet,cr ush resistant ,extended release 05/31 completed Not Available Not Available Not Available Narcan 4 mg/actuat ion nasal spray 06/19 completed Not Available Not Available Not Available Emgality Pen 120 mg/mL subcutane ous pen injector INJECT 120MG (1 PEN) UNDER THE SKIN ONCE A MONTH 04/28 completed Not Available Not Available Not Available Sunosi 150 mg tablet TAKE ONE TABLET BY MOUTH ONE TIME DAILY UPON AWAKENIN G active Not Available Not Available No t Available Nurtec ODT 75 mg disintegr ating tablet active Not Available Not Available Not Available Voltaren Arthritis Pain 1 % topical gel APPLY FOUR TIMES DAILY NEEDED FOR PAIN 04/28 completed Not Available Not Available Not Available Vitals Date Recorded Body height Provider Name an d Address Organization Details Last Updated DateTime 08/23/2020 160.02 cm Carlos Mix [facility] 08/23/2020 11:05:53 Date Recorded Body height Body mass index (BMI) Body weight Heart rate Respiratory rate Body temperature Oxygen saturation Oxygen saturation in Arterial blood by Pulse oximetry Pain severity - 0-10 verbal numeric rating [Score] - Reported Systolic blood pressure Diastolic blood pressure Systolic blood pressure Diastolic blood pressure Provider Name and Address Organization Details Last Updated DateTime 160.02 cm 32.2 kg/m2 77809.8 1 g 96 /min 18 /min 98.4 [degF] 98 % 98 % 0 161 mm[Hg] 109 mm[Hg] 145 mm[Hg] 104 mm[Hg] [facility] 12:51:24 Date Recorded Body height Body temperature Provider N gallo and Address Organization Details Last Updated DateTime 03/30/2021 160.02 cm 96.9 [degF] Mary March [facility] 03/30/2021 09:21:43 Date Recorded Body mass index (BMI) Body weight Heart rate Respiratory rate Oxygen saturation Oxygen saturation in Arterial blood by Pulse oximetry Pain severity - 0-10 verbal numeric rating [Score] - Reported Systolic blood pressure Diastolic blood pressure Provider Name and Address Organization Details Last Updated DateTime 2 28.3 kg/m2 31825.7 8 g 100 /min 18 /min 93 % 93 % 0 123 mm[Hg] 84 mm[Hg] Carlos Mix [facility] 2 09:29:05 Date Recorded Body height Provider Name an d Address Organization Details Last Updated DateTime 04/11/2021 160.02 cm Carlos Mix [facility] 04/11/2021 11:27:08 Date Recorded Body height Provider Name an d Address Organization Details Last Updated DateTime 04/12/2021 160.02 cm Carlosserafin Mix [facility] 04/12/2021 14:53:29 Social History Question Answer Notes LastModified by Organizat ion Details LastModified Time Tobacco Smoking Status [facility] 13:35:22 Do You Have An Advance Directive? No [email or web address] Information not available 07/05/2015 What Is Your Level Of Alcohol Consumption? None [email or web address] Information not available 07/05/2015 What Is Your Level Of Caffeine Consumption? Occasional [email or web address] Information not available 04/28/2020 How Much Tobacco Do You Chew? None [email or web address] Information not available 04/28/2020 Which Illicit Or Recreational Drugs Have You Used? Medical Marijuana [email or web address] Information not available 04/28/2020 Do You Or Have You Ever Used E-cigarettes Or Vape? Never Used Electronic Cigarettes [email or web address] Information not available 04/28/2020 Education 2 Year College [email or web address] Informatio n not available 04/28/2020 Live Alone Or With Others? With Others Information not available 04/28/2020 Last Eye Exam 10/14/2015 Information not available 10/29/2015 Current Diabetic Foot Exam Yes Information not available 10/29/2015 Have You Had A Fall Within The Last Year With Injury No [email or web address] Information not available 07/05/2015 Patients Living Environment Safe And Secure? Yes Information not available 06/01/2015 High Risk For Falls? No Information not available 06/01/2015 Readiness To Learn Accepting [email or web address] Information not available 07/05/2015 Barriers To Learning None Information not available 06/01/2015 Learning Preferences No Preferences [email or web address] Information not available 07/05/2015 Have You Had A Fever And/or Symptoms Of A Lower Respiratory Illness (cough, Difficulty Breathing, Etc)? No [email or web address] Information not available 04/28/2020 Have You Had Any Of These Symptoms: Chills ,Headache, Fatigue, Muscle Or Body Aches , Sore Throat, New Loss Of Taste Or Smell, Nausea Or Vomiting, Or Diarrhea? No [email or web address] Information not available 04/28/2020 Have You Had A COVID-19 Vaccine In The Last 7 Days? No [email or web address] Information not available 04/28/2020 What Was The Date Of Your Most Recent Tobacco Screening? 04/28/2020 [email or web address] Information not available 04/28/2020 How Many Children Do You Have? 3 Information not available 04/28/2020 What Is Your Relationship Status? [email or web address] Information not available 04/28/2020 Are You Sexually Active? Yes Information not available 04/28/2020 Do You Or Have You Ever Used Smokeless Tobacco? Never Used Smokeless Tobacco [email or web address] Information not available 04/28/2020 Do You Have Symptoms Associated With Zika Virus (fever, Rash, Joint Pain, Or Conjunctivitis)? No Information not available 10/29/2015 Have You Recently (within The Last 12 Weeks, Or During A Current ) Traveled To Or Lived In A Zika-affected Area? No Information not available 10/29/2015 Sex: Unknown Functional Status Question Answer Note LastModified by Organization D etails LastModified Time Are you able to care for yourself? Yes [email or web address] Information n ot available 07/05/2015 Mental Status None recorded. Family History Relationship Description Onset Age of this Age Resolved Age Notes LastModified by Organization Details LastModified Time Father No current problems or disability Not available 10/28 14:52:53 Mother No current problems or disability Not available 10/28 14:52:53 Medical History Condition Response other neurologic issue Y cancer N heart disease N arthritis N seizures Y acid reflux/GERD Y neurologic disease Y lung disease Y diabetes mellitus Y musculoskeletal disease Y high cholesterol Y high blood pressure Y Gynecological History Statement/Question Response Do you have hot flashes? Y Location of Mammogram [facility] Date of Last Mammogram 04/06/2018 Age at Menarche 9 Mammogram in Past 24 months Y Would you like to schedule Mammogram Grace ointment? N Obstetrics History GPAL:G 4 P 0 0 1 3 Type Value Spontaneous 1 Living 3 Total 4 Immunizations Vaccine Type Date Status Note Provider Nam e and Address Organization Details Recorded Time COVID-19 vaccine, vector-nr, [id number], PF, 0.5 mL 1 completed [facility] null, [facility] 03/30/2021 09:22:20 Influenza, split virus, quadrivalent, PF 8 completed [facility] null, [facility] 03/30/2021 09:22:20 Influenza, split virus, quadrivalent, preservative 6 completed Hawa Oliveira null, [facility] [facility] 12/24/2015 16:11:39 Past Encounters Encounter ID Performer Location Encounter Start Date Encounter Closed Date Diagnosis/Indication Diagnosis SNOMED-CT Code Diagnosis ICD10 Code Diagnosis Note [id number] [facility] [address] [id number] 5 05/08/2014 13:35:10 05/08/2014 14:36:19 Uncontrolled type 2 diabetes mellitus [id number] [facility] [address] [address] 05/08/2014 13:35:10 05/08/2014 14:36:19 Uncontrolled type 2 diabetes mellitus [id number] [facility] [address] [address] 07/31/2014 12:52:58 07/31/2014 13:59:19 Uncontrolled type 2 diabetes mellitus [id number] [facility] [address] [address] 07/31/2014 12:52:58 07/31/2014 13:59:19 Uncontrolled type 2 diabetes mellitus [id number] [facility] [address] [address] 5 12/28/2014 13:31:43 12/28/2014 15:33:54 Disorder of nervous system due to type 2 diabetes mellitus 725042067 Pure hypercholesterolemia 512175994 Essential hypertension 76359455 [id number] [facility] [address] [address] 5 12/28/2014 13:31:43 12/28/2014 15:33:54 Disorder of nervous system due to type 2 diabetes mellitus 997045155 Pure hypercholesterolemia 647062086 Essential hypertension 88248076 [id number] [facility] [address] [address] 03/30/2015 14:23:35 03/30/2015 15:37:50 Disorder of nervous system due to type 2 diabetes mellitus 214514842 Pure hypercholesterolemia 527104700 Vitamin D deficiency 24465944 Polyneurop 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 33673529 [id number] [facility] [address] [address] 03/30/2015 14:23:35 03/30/2015 15:37:50 Disorder of nervous system due to type 2 diabetes mellitus 584646763 Pure hypercholesterolemia 912931995 Vitamin D deficiency 84697483 Polyneurop 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 74171539 [id number] [facility] [address] [address] 03/23/2014 14:19:56 03/23/2014 16:39:19 Uncontrolled type 2 diabetes mellitus 382189607 Obesity 745477129 [id number] [facility] [address] [address] 5 03/23/2014 14:19:56 03/23/2014 16:39:19 Uncontrolled type 2 diabetes mellitus 930039006 Obesity 985537475 [id number] zCLSD_SHM G_NEURO_P [id number] [address] [place] [address] 12/30/2013 16:01:40 12/30/2013 17:09:08 Narcolepsy 50914776 Obstructiv e sleep apnea syndrome 92323132 [id number] zCLSD_SHM G_NEURO_P [id number] [address] [place] [address] 12/30/2013 16:01:40 12/30/2013 17:09:08 Obstructive sleep apnea syndrome 57973690 Narcolepsy 98971468 [id number] zCLSD_SHM G_NEURO_P [id number] [address] [place] [address] 03/04/2014 16:03:44 03/04/2014 17:25:51 Narcolepsy 41416280 Sleep apnea 77229196 [id number] zCLSD_SHM G_NEURO_P [id number] [address] [place] [address] 03/04/2014 16:03:44 03/04/2014 17:25:51 Narcolepsy 33549113 Sleep apnea 24288472 [id number] Erick Meza MD [facility]_PC_D [facility]STE [address] [place] [address] 06/01/2015 16:22:42 06/01/2015 17:05:55 Post-surgical malabsorption 828064609 K91.2 She is doing very well post operativel y. She is to continue on Stage IV diet, increase exercise as tolerated, and continue her vitamin supplement s. Intentiona l weight loss 606400488 R63.8 [id number] LISETTE Perez [facility] [address] [address] 07/05/2015 09:42:32 07/05/2015 10:38:50 Type 2 diabetes mellitus 28925823 E11.9 Vitamin D deficiency 347 85189 E55.9 Dyslipidemia 576796312 E 78.5 [id number] Erick Meza MD [facility]PC[facility]D [facility] [address],[place] [address] 08/31/2015 14:46:31 08/31/2015 15:34:28 Post-surgical malabsorption 115530671 K91.2 She is doing very well post operativel y. She is to continue on Stage IV diet, increase exercise as tolerated, and continue her vitamin supplement s. [id number] Edwige QUIJANO [facility] [place] [address], [address] [address] 10/29/2015 14:36:31 10/29/2015 15:26:56 Type 2 diabetes mellitus without complication 426642496 E11.9 [id number] Erick Meza MD MG_PC_D [facility] [address],[place] [address] 12/24/2015 16:02:13 12/24/2015 16:43:44 Post-surgical malabsorption 909606728 K91.2 She is doing very well post operativel y. She is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
--- OUTSIDE RECORDS SUMMARY | 2024-05-22 06:14 | XMS_ITS | Encounter Summary ---
Author Organization [facility] Address [address] [place] [address] Care Team Providers Care Sales Operations Specialist Name Role Phone Donna Burton LAUNDRY WORKER Primary Care Provider [phone] Reason for Visit * Reason Onset Date Comments Medication Information 03/18/2024 Encounter Details Date Type Department Care Team (Late st Contact Info) Description 03/18/2024 Remotemedicalt Message Enc [facility] [place] [address] [place] [address] Donna Burton, LAUNDRY WORKER [address] [place] [address] Pharmacy Social History Tobacco Use Types Packs/Day Years [...] Sex Assigned at Female 03/12/2024 9:51 AM IT PROFESSIONAL Legal Sex Female 11:28 PM CDT Gender Identity Female 03/12/2024 9:51 AM IT PROFESSIONAL Sexual Orientation Straight 03/12/2024 9: 51 AM IT PROFESSIONAL documented as of this encounter Plan of Treatment Upcoming Encounters Date Type Department Care Team (Late st Contact Info) Description 05/27/2024 9:20 AM CDT Appointment [facility] [place] [address] [phone] Angelito Moore, COMMUNITY SUPPORT SPECIALIST [address] [facility] [address] [place] [address] [phone] (Work) 06/19/2024 10:20 AM CDT Office Visit [facility] [place] [address] [place] [address] Donna Burton, LAUNDRY WORKER [address] [facility] [address] [place] [address] 10/16/2024 2:00 PM CDT [facility] [address] [facility], [address] [place] [address] Roney Roth MD [address] [place] [address] documented as of this encounter Visit Diagnoses Not on filedocumented in this encounter Care Teams Sales Operations Specialist Relationship Specialty Start Date End Date Donna Burton LAUNDRY WORKER [address] [place] [address] PCP - General NURSE PRACTITIONER 02/25/24 documented as of this encounter
--- NOTE | 2024-05-22 06:44 | ECG_ITS ---
Test Date: 2024-05-22 06:55:00 Measurements Intervals [place] Rate: 125 P: 67 NE: 148 QRS: 45 QRSD: 96 T: 93 QT: 319 QTc: 461 Interpretive Statements SINUS TACHYCARDIA PEAKED T WAVES- CONSIDER HYPERKALEMIA BORDERLINE ST-T WAVE ABNORMALITY- HIGH LATERAL LEADS BASELINE ARTIFACT- I, II, III, AVR, AVL, AVF, V1-V6 ABNORMAL ECG No previous ECG available for comparison Electronically Signed On 05-22-2024 07:41:21 CDT by Harvinder Guzman D.O.
[2024-05-22 07:07] LABS: Basophils Absolute Auto 0.1 K/mm3 (0.0-0.1); Basophils Percent Auto 0.4 % (0.2-1.2); Eosinophils Percent Auto 0.2 % (0-4.4); Hematocrit 42.7 % (37.0-47.0); Hemoglobin 13.2 g/dL (12.0-15.0); Immature Granulocyte Absolute 0.14 K/mm3 (0.00-0.031); Immature Granulocyte Percent A 0.9 % (0-0.5); Lymphocytes Absolute Auto 2.51 K/mm3 (0.9-3.2); Mean Corpuscular HGB Conc 30.9 g/dl (32-36); Mean Corpuscular Hemoglobin 24.9 pg (26-34); Mean Corpuscular Volume 80.4 fl (80-100); Mean Platelet Volume 9.3 fl (7.4-10.4); Monocytes Absolute Auto 0.8 K/mm3 (0.1-0.6); Neutrophils Absolute Auto 12.2 K/mm3 (1.3-6.7); Neutrophils Percent Auto 77.5 % (45.5-73.1); Platelet Count Result 391 k/mm3 (150-375); Red Blood Count 5.31 M/mm3 (4.2-5.4); White Blood Count 15.7 K/mm3 (4.5-10.0)
[2024-05-22 07:19] LABS: Alanine Aminotransferase 158 U/L (6-35); Albumin Level 4.3 g/dL (3.5-5.1); Alkaline Phosphatase 679 U/L (38-126); Anion Gap 19 mmol/L (4-12); Aspartate Amino Transferase 198 U/L (14-36); Blood Urea Nitrogen 16 mg/dL (7-17); Calcium 8.6 mg/dL (8.4-10.2); Carbon Dioxide 22 mmol/L (22-30); Chloride 95 mmol/L (98-107); Estimated CRCL calculation 47 ml/min; Estimated Glomerular Filt Rate 56; Glucose 224 mg/dL (65-110); Potassium 3.4 mmol/L (3.4-5.0); Sodium 136 mmol/L (137-145)
[2024-05-22 07:31] LABS: Hypochromasia 1+; Platelet Estimate Increased (Adequate)
[2024-05-22 07:32] LABS: Microcytosis 1+ (NORMAL)
[2024-05-22 07:33] LABS: Schistocytes None Seen
--- OUTSIDE RECORDS SUMMARY | 2024-05-22 07:40 | XMS_ITS | Clinical Summary ---
Author Organization [facility] Address [address], [facility] [address] [place] [address] Phone Care Team Providers Care Copy Clerk Name Role Phone Donna Burton APRN, CNP Primary Care Provid er Deepak Damico MD Unavailable [phone] Allergies Active Allergy Reactions Criticality Noted Date [...] Department Care Team Description 04/11/2024 8:00 AM RAT EXTERMINATOR Clinical Support [facility] [address] [phone] Iron deficiency anemia secondary to blood loss (chronic) (Primary Dx) 04/11/2024 Travel 04/04/2024 10:30 AM RAT EXTERMINATOR Office Visit [facility] [address] [phone] Deepak Damico MD Iron deficiency anemia secondary [...] Comments Blood Pressure 140/80 04/04/2024 11:26 AM RAT EXTERMINATOR Pulse 78 04/04/2024 11:26 AM RAT EXTERMINATOR Temperature 37 C (98.6 F) 04/04/2024 11:26 AM RAT EXTERMINATOR Respiratory Rate 18 04/04/2024 11:26 AM RAT EXTERMINATOR Oxygen Saturation 97% 04/04/2024 11:26 AM RAT EXTERMINATOR Inhaled Oxygen Concentration - - Weight 72.3 kg (159 lb 4.8 oz) 04/04/2024 11:26 AM RAT EXTERMINATOR Height 160 cm (5' 3 ) 04/04/2024 11:26 AM RAT EXTERMINATOR Body Mass Index 28.22 04/04/2024 11:26 AM RAT EXTERMINATOR Plan of Treatment Health Maintenance Due Date [...] complete this topic Insurance AMBETTER Care Teams Copy Clerk Relationship Specialty Start Date End Date Donna Burton APRN, PRODUCT MANAGEMENT MANAGER [address], [address] [place] [address] PCP - General Advanced Practice Nurse 03/10/24 Deepak Damico MD [address] [place] [phone] Oncology 03/17/24
--- OUTSIDE RECORDS SUMMARY | 2024-05-22 07:40 | XMS_ITS | Clinical Summary ---
Author Organization [facility] Address [address] [place] [address] Care Team Providers Care Assistant County Attorney Name Role Phone Donna Burton Primary Care Provider [phone] Source Comments [facility],non-owned Affiliates and Associated Physician Practices is amultiple site organization consisting of ambulatory clinics and hospital sitesin [place], [place], [place] and [place]. This disclosure is being madepursuant to the Care Everywhere program and may not contain all information available regarding this patient. Last updated 17.[facility] [employer] Allergies Active Allergy Reactions Criticality Noted Date [...] medical care, and heating? Somewhat hard 11/16/2023 [facility] - Occupational [...] place to sleep or slept in a senior living (including now)? No 11/16/2023 Sex and Gender [...] Description 06/12/2024 3:20 PM CDT Office Visit [facility] - Sleep Services [address] [place] [phone] Froy Brown MD [address] DIV OF PULMONARY/[place] [address] Health Maintenance Due Date Last Done Comments [...] this topic Medical Devices Implanted Type Area Printing Pressman Device Identifier Shelf Expiration Date Model / Serial / Lot Other (Type Not Listed)-02/13/2012 Implanted:2012 (Quantity not on file) Other (Type not listed) Hip Description:spinal stimulato r Advance Directives * Full Code (Latest Code Status on File) Date Activated Date Inactivated Comments 11/16/2023 3:13 AM 11/19/2023 6:33 PM Care Teams Assistant County Attorney Relationship Specialty Start Date End Date Donna Burton [address] [facility] [address] [place] [address] PCP - General Revenue Integrity Analyst 03/12/24
--- OUTSIDE RECORDS SUMMARY | 2024-05-22 07:40 | XMS_ITS | CONTINUITY OF CARE DOCUMENT ---
Author Name spring londono Address Unknown Organization [facility] Address [address] [place] [address] Phone [phone] Care Team Providers Care Bond Analyst Name Role Phone Norris Moscoso MD Unavailable [phone] Norris Moscoso MD Unavailable [phone] INSURANCE PROVIDERS Payer name Policy type / Coverage type Akash red constitution party ID [facility] SILVER-C ADVANTAGE O HMO [id number]
--- OUTSIDE RECORDS SUMMARY | 2024-05-22 07:40 | XMS_ITS | Encounter Summary ---
Author Organization [facility] Address [address] [place] [address] Care Team Providers Care Union Carpenter Name Role Phone Donna Burton Opal SEISMOGRAPHER Primary Care Provider [phone] Encounter Details Date Type Department Care Team (Latest Contact Info) Description 03/25/2024 [place] Message Enc [facility] [place] [address] [id number] [facility], [facility] Provider PAIN MANAGEMENT CLINIC Social History Tobacco [...] Sex Assigned at Female 03/12/2024 9:51 AM MAILROOM MANAGER Legal Sex Female 11:28 PM CDT Gender Identity Female 03/12/2024 9:51 AM MAILROOM MANAGER Sexual Orientation Straight 03/12/2024 9: 51 AM MAILROOM MANAGER documented as of this encounter Plan of Treatment Upcoming Encounters Date Type Department Care Team (Late st Contact Info) Description 05/27/2024 9:20 AM CDT Appointment [facility] [place] [address] [phone] Angelito Moore, AUDIO VISUAL PROJECT MANAGER [address] [phone] [phone] (Work) 06/19/2024 10:20 AM CDT Office Visit [facility] Mult[facility]pecialty Care - [place] [address] [place] [address] Donna Burton NP [address] [facility] [address] [place] [address] 10/16/2024 2:00 PM CDT [facility] [address] [facility], [address] [place] [phone] Roney Roth MD 3 [place] [address] documented as of this encounter Visit Diagnoses Not on filedocumented in this encounter Care Teams Union Carpenter Relationship Specialty Start Date End Date Donna Burton SEISMOGRAPHER [address] [facility] [address] [place] [address] PCP - General NURSE PRACTITIONER 02/25/24 documented as of this encounter
--- OUTSIDE RECORDS SUMMARY | 2024-05-22 07:40 | XMS_ITS | Encounter Summary ---
Author Organization [facility] Address [address] [place] [address] Care Team Providers Care Pumper Head Name Role Phone Donna Burton Opal INTERNAL GRINDER SET UP OPERATOR Primary Care Provider [phone] Encounter Details Date Type Department Care Team (Latest Contact Info) Description 03/28/2024 Personal Estate Manager Message Enc [facility] Medical [facility] Multispecialty Care [address] [place] [address] [place], [facility] Provider Diabetic Screening Social History Tobacco Use [...] Sex Assigned at Female 03/12/2024 9:51 AM PIZZA MAKER Legal Sex Female 11:28 PM CDT Gender Identity Female 03/12/2024 9:51 AM PIZZA MAKER Sexual Orientation Straight 03/12/2024 9: 51 AM PIZZA MAKER documented as of this encounter Plan of Treatment Upcoming Encounters Date Type Department Care Team (Late st Contact Info) Description 05/27/2024 9:20 AM CDT Appointment [facility] Interventional [place] [address] [phone] Angelito Moore, BOOKMOBILE LIBRARIAN [address] [place] [address] [phone] (Work) 06/19/2024 10:20 AM CDT Office Visit [facility] Multispecialty Care - [place] [address] [place] [address] Donna Burton NP [address] [facility] [address] [place] [address] 10/16/2024 2:00 PM CDT Office Visit [facility] Multispecialty Care - [facility] [address] [facility], [address] [place] [phone] Roney Roth MD 3 [place] [address] documented as of this encounter Visit Diagnoses Not on filedocumented in this encounter Additional Health Concerns Assessment Noted Time PHQ-9 Depression Total Score: 15 025 9:29 AM PIZZA MAKER documented as of this encounter Care Teams Pumper Head Relationship Specialty Start Date End Date Donna Burton NP [address] [facility] [address] [place] [address] PCP - General NURSE PRACTITIONER 02/25/24 documented as of this encounter
--- OUTSIDE RECORDS SUMMARY | 2024-05-22 07:41 | XMS_ITS | Encounter Summary ---
Author Organization [facility] Address [address] [place] [address] Care Team Providers Care Evp Marketing Name Role Phone Donna Burton PARCEL WRAPPER Primary Care Provider [phone] Encounter Details Date Type Department Care Team (Late st Contact Info) Description 03/20/2024 MyChart Message Enc [facility] Medical Group Multispecialty Care - [place] [address] [place], [place] [phone] Donna Burton, PARCEL WRAPPER [address] [place], [place] [phone] GI referral Social History Tobacco Use Types [...] Sex Assigned at Female 03/12/2024 9:51 AM MEAT GRINDER Legal Sex Female 11:28 PM CDT Gender Identity Female 03/12/2024 9:51 AM MEAT GRINDER Sexual Orientation Straight 03/12/2024 9: 51 AM MEAT GRINDER documented as of this encounter Plan of Treatment Upcoming Encounters Date Type Department Care Team (Late st Contact Info) Description 05/27/2024 9:20 AM CDT Appointment [facility] Interventional [place] [address] [phone] Angelito Moore, YOUTH ACCOMMODATION SUPPORT WORKER [address] [facility] [address] [place] [address] [phone] (Work) 06/19/2024 10:20 AM CDT Office Visit [facility] Medical Group Multispecialty Care - [place] [address] [place] [address] Donna Burton, PARCEL WRAPPER [address] [facility] [address] [place] [address] 10/16/2024 2:00 PM CDT [facility] [address] [facility], [address] [place] [address] Roney Roth MD 3 [place] [address] documented as of this encounter Visit Diagnoses Not on filedocumented in this encounter Care Teams Evp Marketing Relationship Specialty Start Date End Date Donna Burton, PARCEL WRAPPER [address] [facility] [address] [place] [address] PCP - General NURSE PRACTITIONER 02/25/24 documented as of this encounter
--- OUTSIDE RECORDS SUMMARY | 2024-05-22 07:41 | XMS_ITS | Encounter Summary ---
Author Organization [facility] Address [address] [place] [address] Care Team Providers Care Germination Testing Manager Name Role Phone Donna Burton Opal KEYPUNCH OPERATORS SUPERVISOR Primary Care Provider [phone] Encounter Details Date Type Department Care Team (Latest Contact Info) Description 03/12/2024 5th Finger Message Enc [facility] Interventional Pain [place] [address] [phone] [facility] Referral Social History Tobacco Use Types Packs/Day Years Used Date Smoking Tobacco: Never Passive Smoke Exposure: Never Smokeless Tobacco: Never Comments:Briefly as a dumb t een Alcohol Use Standard Drinks/Week Comments Yes 6.7 (1 standard drink = 0.6 oz p ure alcohol) social Comments Unknown Sex and Gender Information Value Date Recorded Sex Assigned at Female 03/12/2024 9:51 AM SIEVE MAKER Legal Sex Female 11:28 PM CDT Gender Identity Female 03/12/2024 9:51 AM SIEVE MAKER Sexual Orientation Straight 03/12/2024 9: 51 AM SIEVE MAKER documented as of this encounter Plan of Treatment Upcoming Encounters Date Type Department Care Team (Late st Contact Info) Description 05/27/2024 9:20 AM CDT Appointment [facility] Interventional Pain [place] [address] [phone] Angelito Moore, CIGARETTE CATCHER [address] [facility] [address] [place] [address] [phone] (Work) 06/19/2024 10:20 AM CDT Office Visit [facility] Multispecialty Care - [place] [address] [place] [address] Donna Burton NP [address] [facility] [address] [place] [address] 10/16/2024 2:00 PM CDT Office Visit [facility] Mult[facility]ty Care - [facility] [address] [facility], [address] [place] [address] Roney Roth MD 3 [place] [address] documented as of this encounter Visit Diagnoses Not on filedocumented in this encounter Care Teams Germination Testing Manager Relationship Specialty Start Date End Date Donna Burton NP [address] [facility] [address] [place] [address] PCP - General NURSE PRACTITIONER 02/25/24 documented as of this encounter
--- OUTSIDE RECORDS SUMMARY | 2024-05-22 07:41 | XMS_ITS | Clinical Summary ---
Author Organization [facility] Address [address] [place] [address] Care Team Providers Care Clinical Courier Name Role Phone Unavailable Primary Care Provider [...] ipratropium bromide (ATROVENT) 21 mcg (0.03 %) [place], Non-Aerosol ADMINISTER 2 SPRAYS IN EACH NOSTRIL TWICE DAILY. 30 mL 6 5 5:47 PM BONING ROOM WORKER 025 Active fluticasone propionate (FLONASE) 50 mcg/spray [place], Suspension nasal inhaler ADMINISTER 2 SPRAYS IN EACH NOSTRIL ONCE DAILY. 16 Gram 6 5 5:47 PM BONING ROOM WORKER 025 Active fluconazole (DIFLUCAN) 150 mg tablet Take 1 tablet (150 mg total) by mouth once for 1 dose. Take 2nd dose once antibiotics completed 2 Tablet 5 4:09 PM BONING ROOM WORKER 025 Active nitrofurantoi n (MACROBID) 100 mg capsule Take 1 capsule (100 mg total) by mouth 2 (two) times daily for 5 days. Take with food 10 Capsule 5 4:09 PM BONING ROOM WORKER 025 Active famotidine (PEPCID) 20 mg tablet [...] daily. 30 Capsule 2 5 12:53 PM BONING ROOM WORKER 025 Active sucralfate (CARAFATE) 1 gram tablet Take 1 tablet (1 g total) by mouth 3 (three) times daily before meals. 90 Tablet 2 5 12:53 PM BONING ROOM WORKER 025 Active triamcinolone acetonide (KENALOG) 0.1 % Cream Apply topically 2 (two) times daily as needed. 45 Gram 1 5 12:53 PM BONING ROOM WORKER 025 Active olmesartan (BENICAR) 40 mg tablet Take 1 tablet (40 mg total) by mouth daily. 30 Tablet 2 5 12:53 PM BONING ROOM WORKER 025 Active hydrOXYzine HCL (ATARAX) 25 mg tablet Take 1 Tablet (25 mg) by mouth 3 times daily as needed for itching (morning, midday, and in the evening) 90 Tablet 1 5 12:53 PM BONING ROOM WORKER 025 Active clomiPRAMINE (ANAFRANIL) 25 mg capsule [...] daily. 90 Tablet 1 5 1:11 PM BONING ROOM WORKER 025 2024 Discontinued glipiZIDE (GLUCOTROL) 5 mg tablet Take 1 Tablet (5 mg) by mouth daily in the morning before breakfast. 30 Tablet 1 5 5:57 PM CDT 025 2024 Discontinued dulaglutide (Trulicity) 0.75 mg/0.5 mL injection Inject 0.5 mL (0.75 mg) by subcutaneous injection every 7 days. 2 mL 5 4:09 PM BONING ROOM WORKER 025 2024 Discontinued(R eorder) cyclobenzapri ne (FLEXERIL) [...] on file Legal Sex Female 10:24 AM BONING ROOM WORKER Gender Identity Not on file Sexual Orientation [...]
--- OUTSIDE RECORDS SUMMARY | 2024-05-22 07:41 | XMS_ITS | Encounter Summary ---
Author Organization [facility] Address [address] [place] [address] Care Team Providers Care Wrap Checker Name Role Phone Donna Burton HANDLE ASSEMBLER Primary Care Provider [phone] Reason for Visit * Reason Onset Date Comments Medication Information 03/18/2024 Encounter Details Date Type Department Care Team (Late st Contact Info) Description 03/18/2024 DiscoveRXt Message Enc [facility] Group Multispecialty Care - [place] [address] [place] [address] Donna Burton, HANDLE ASSEMBLER [address] [place] [address] Pharmacy Social History Tobacco Use Types Packs/Day [...] Sex Assigned at Female 03/12/2024 9:51 AM ONSITE HEALTH COACH Legal Sex Female 11:28 PM CDT Gender Identity Female 03/12/2024 9:51 AM ONSITE HEALTH COACH Sexual Orientation Straight 03/12/2024 9: 51 AM ONSITE HEALTH COACH documented as of this encounter Plan of Treatment Upcoming Encounters Date Type Department Care Team (Late st Contact Info) Description 05/27/2024 9:20 AM CDT Appointment [facility] Interventional [place] [address] [phone] Angelito Moore, COORDINATOR VOLUNTEER SERVICES [address] [facility] [address] [place] [address] [phone] (Work) 06/19/2024 10:20 AM CDT Office Visit [facility] Multispecialty Care - [place] [address] [place] [address] Donna Burton, HANDLE ASSEMBLER [address] [facility] [address] [place] [address] 10/16/2024 2:00 PM CDT [facility] [address] [facility], [address] [place] [address] Roney Roth MD 3 [place] [address] documented as of this encounter Visit Diagnoses Not on filedocumented in this encounter Care Teams Wrap Checker Relationship Specialty Start Date End Date Donna Burton HANDLE ASSEMBLER [address] [place] [address] PCP - General NURSE PRACTITIONER 02/25/24 documented as of this encounter
--- OUTSIDE RECORDS SUMMARY | 2024-05-22 07:41 | XMS_ITS | Clinical Summary ---
Author Organization [facility] Address Critical access hospital[address] [place] [address] Care Team Providers Care Beef Skinner Name Role Phone Donna Bob Opal BILL CHECKER Primary Care Provider [phone] Allergies Active Allergy Reactions Criticality Noted Date [...] hyperglycemia, without long-term current use of insulin ([facility]) Check blood sugar twice a day before meals. 1 kit 025 Active Glucose Blood test stripIndications: Type 2 diabetes mellitus with hyperglycemia, without long-term current use of insulin ([facility]) Check blood sugar twice a day before meals. 300 strip 1 025 Active Lancets (ONETOUCH ULTRASOFT) lancetsIndication s:Type 2 diabetes mellitus with hyperglycemia, without long-term current use of insulin ([facility]) Check blood sugar twice a [...] pathological fracture, vertebra(e), initial encounter for fracture ([facility]) Inject 2.34 mLs (210 mg [...] hyperglycemia, without long-term current use of insulin ([facility]) Inject 1.5 mg into the [...] hyperglycemia, without long-term current use of insulin ([facility]) Take 1 tablet (5 mg total) by mouth every morning before breakfast. Has tolerated sulfonylurea in the past without issue 30 tablet 1 025 2024 Discontinued dulaglutide (TRULICITY) 0.75 MG/0.5ML injectionIndicati ons:Type 2 diabetes mellitus with hyperglycemia, without long-term current use of insulin ([facility]) Inject 0.75 mg into the skin once a week for 30 days. 2 mL 025 2024 Discontinued TRULICITY 0.75 MG/0.5ML injectionIndicati ons:Type 2 diabetes mellitus with hyperglycemia, without long-term current use of insulin ([facility]) Inject 0.5 mL (0.75 mg) [...] pathological fracture, vertebra(e), initial encounter for fracture ([facility]) 04/25/2024 Compression fracture of T12 vertebra with routine healing, subsequent encounter 04/25/2024 Closed fracture of sacrum wi th delayed healing, unspecified fracture morphology, subsequent encounter 04/17/2024 Iron deficiency anemia, unspecified 03/12/2024 History of cholecystectomy 02/27/2024 Migraine without aura and wi thout status migrainosus, not intractable 02/27/2024 Primary narcolepsy without cataplexy ([facility]) 0 02/27/2024 Chronic bilateral low back p [...] hyperglycemia, without long-term current use of insulin ([facility]) 02/27/2024 Anemia, unspecified type 02/27/2024 Vitamin D deficiency 02/27/2024 Cardiac murmur 02/27/2024 Primary hypertension 02/27/2024 Encounters Date Type Department Care Team Description 05/19/2024 Telephone [facility] Medical [facility] [place] [id number] [facility] [address] [place] [address] Donna Bob, RODRIGO Medication Request 05/16/2024 Orders Only [facility] [place] [id number] [facility] [address] [place] [address] Donna Bob, RODRIGO 05/15/2024 6:10 PM CDT - 05/15/2024 11:59 PM CDT Hospital Encounter [facility] [address] [place] [address] Donna Bob, BILL CHECKER Discharge Disposition: Home or Self Care (Routine Discharge) 05/15/2024 8:20 AM CDT [facility] [place] [phone] [facility] [address] [place] [address] Donna Bob, RODRIGO Follow Up ([facility]) 05/15/2024 - 05/15/2024 6:09 PM CDT Hospital Encounter [facility] [address] [place] [address] Discharge Disposition: Home or Self Care (Routine Discharge) 05/15/2024 Orders Only [facility] [address] [facility] [address] [place] [address] Michelle Andrews MA 05/15/2024 Travel 05/13/2024 Telephone [facility] [address] [facility] [address] [place] [address] Donna Bob, BILL CHECKER Error 05/13/2024 MyChart Message Enc [facility] [place] [phone] [place] [address] [place] [address] Donna Bob, BILL CHECKER Back pain 05/12/2024 8:51 AM CDT - 05/12/2024 11:59 PM CDT Hospital Encounter [facility] [address] [place] [address] Donna Bob, BILL CHECKER Discharge Disposition: Home or Self Care (Routine Discharge) 05/12/2024 Travel 04/28/2024 Telephone [facility] [place] [phone] [place] [address] [place] [address] Donna Bob, BILL CHECKER Medication Information 04/25/2024 Telephone [facility] [place] [phone] [place] [address] [place] [address] Donna Bob, BILL CHECKER Medication Information 04/25/2024 Telephone [facility] [place] [address] [place] [address] [place] [address] Donna Bob, BILL CHECKER Records 04/25/2024 Orders Only [facility] [place] [address] [place] [address] [place] [address] Donna oBb, BILL CHECKER 04/25/2024 Orders Only [facility] - [place] [address] [place] [address] [place] [address] Donna Bob, BILL CHECKER 04/21/2024 9:38 AM CDT - 04/21/2024 11:59 PM CDT [place] [address] [facility] [place] [address] Donna Bob, BILL CHECKER Discharge Disposition: Home or Self Care (Routine Discharge) 04/21/2024 Telephone [facility] [place] [phone] [facility] [address] [place] [address] Donna Bob, RODRIGO Medication 04/21/2024 Travel 04/18/2024 Telephone [facility] [place] [address] [facility] [address] [place] [address] Donna Bob, RODRIGO Medication 04/17/2024 8:00 AM OUTBOARD SYSTEM OPERATOR [facility] [place] [phone] [facility] [address] [place] [address] Donna Bob, RODRIGO Diabetes ([facility]) 04/17/2024 Travel 04/10/2024 Orders Only [facility] [place] [address] Non-Staff, Provider 04/09/2024 Orders Only [facility] [place] [phone] [facility] [address] [place] [address] Donna Bob, BILL CHECKER 04/08/2024 10:32 AM OUTBOARD SYSTEM OPERATOR - 04/08/2024 11:59 PM OUTBOARD SYSTEM OPERATOR Hospital Encounter [facility] [address] [place] [address] Donna Bob, BILL CHECKER Discharge Disposition: Home or Self Care (Routine Discharge) 04/08/2024 Travel 04/04/2024 9:00 AM OUTBOARD SYSTEM OPERATOR Treatment [facility] [place] [address] Donna Bob, BILL CHECKER 04/04/2024 Scan [facility] SRVCS Scanned, [facility] 04/04/2024 Travel 04/02/2024 Scan [facility] Scanned, [facility] 03/31/2024 Telephone [facility] [place] [address] [facility] [address] [place] [address] Donna Bob, BILL CHECKER Insurance 03/28/2024 MyChart Message Enc [facility] Medical [facility] - [place] [phone] [facility] [address] [place] [address] [facility] Provider Diabetic Screening 03/26/2024 8:00 AM OUTBOARD SYSTEM OPERATOR Office Visit [facility] Medical [facility] - [place] [phone] [facility] [address] [place] [address] Donna Bob, RODRIGO Anemia; Blood Pressure; Diabetes 03/26/2024 - 03/26/2024 11:59 PM OUTBOARD SYSTEM OPERATOR Hospital Encounter [facility] [address] Donna Bob, RODRIGO Discharge Disposition: Home or Self Care (Routine Discharge) 03/26/2024 Travel 03/25/2024 MyChart Message Enc [facility] [place] [address] [id number] [facility] Provider PAIN MANAGEMENT CLINIC 03/21/2024 8:00 AM OUTBOARD SYSTEM OPERATOR Treatment [facility] [place] [address] Donna Bob, BILL CHECKER 03/21/2024 Travel 03/20/2024 MyChart Message Enc [facility] Medical [facility] - [place] [phone] [facility] [address] [place] [address] Donna Bob, RODRIGO GI referral 03/19/2024 Travel 03/18/2024 MyChart Message Enc [facility] Medical [facility] [place] [address] [facility] [address] [place] [address] Donna Bob, BILL CHECKER Pharmacy 03/18/2024 Orders Only [facility] Medical [facility] - [place] [address] [place] [address] Donna Bob, BILL CHECKER 03/17/2024 Telephone [facility] Multispecialty [place] [phone] [facility] [address] [place] [address] Donna Bob, BILL CHECKER Question 03/12/2024 6:01 PM OUTBOARD SYSTEM OPERATOR - 03/12/2024 11:59 PM OUTBOARD SYSTEM OPERATOR Hospital Encounter [facility] [address] [place] [address] Donna Bob, BILL CHECKER Discharge Disposition: Home or Self Care (Routine Discharge) 03/12/2024 9:40 AM OUTBOARD SYSTEM OPERATOR [facility] [place] [phone] [facility] [address] [place] [address] Donna Bob, BILL CHECKER Physical 03/12/2024 Orders Only [facility] [place] [place] [address] Donna Bob, BILL CHECKER 03/12/2024 Travel 03/12/2024 MyChart Message Enc [facility] [place] [address] [id number] [facility] Provider Pain Management Referral 03/04/2024 Scan [employer] INFO SRVCS Scanned, [facility] 03/03/2024 Telephone [facility] [place] [address] [facility] [address] [place] [address] Donna Bob, BILL CHECKER Medication 03/02/2024 Misc Documentation [facility] [place] [address] [facility] [address] [place] [address] Donna Bob, BILL CHECKER 02/28/2024 5:57 PM OUTBOARD SYSTEM OPERATOR - 02/28/2024 11:59 PM OUTBOARD SYSTEM OPERATOR Hospital Encounter [facility] [address] [place] [address] Donna Bob, BILL CHECKER Discharge Disposition: Home or Self Care (Routine Discharge) 02/28/2024 10:00 AM OUTBOARD SYSTEM OPERATOR Allied Health/Nurse [facility] [address] [place] [address] Donna Bob NP Allied Health Visit (Fasting labs) 02/28/2024 - 02/28/2024 5:56 PM OUTBOARD SYSTEM OPERATOR [facility] [place] [address] Donna Bob NP Discharge Disposition: Home or Self Care (Routine Discharge) 02/28/2024 Travel 02/27/2024 10:20 AM OUTBOARD SYSTEM OPERATOR [facility] [place] [address] [place] [address] Donna Bob, RODRIGO New Patient 02/27/2024 Travel [...] Sex Assigned at Female 03/12/2024 9:51 AM OUTBOARD SYSTEM OPERATOR Legal Sex Female 11:28 PM CDT Gender Identity Female 03/12/2024 9:51 AM OUTBOARD SYSTEM OPERATOR Sexual Orientation Straight 03/12/2024 9: 51 AM OUTBOARD SYSTEM OPERATOR Last Filed Vital Signs Vital Sign Reading [...] Info) Description 05/27/2024 9:20 AM CDT Appointment [facility] [place] [address] [id number] Angelito Moore, SKIN PASS OPERATOR 3 [facility] [address] [place] [address] [phone] (Work) 06/19/2024 10:20 AM CDT Office Visit [facility] Medical [facility] [place] [address] [place] [address] Donna Bob, BILL CHECKER [address] [place] [address] 10/16/2024 2:00 PM CDT [facility] [address] [facility], [address] [place] [address] Roney Roth MD [address] [place] [address] Health Maintenance Due Date Last Done Comments [...] 04/08/2024 Hepatitis C Completed 02/28/2024 PHQ-2 (Physician [place]) Completed 04/17/2024 Meningococcal B Vaccine Aged Out [...] hyperglycemia, without long-term current use of insulin ([facility]) HEMOGLOBIN, GLYCOSYLATED Routine 05/15/2024 9:38 AM CDT Type 2 diabetes mellitus with hyperglycemia, without long-term current use of insulin ([facility] HHS/[facility]) US BREAST LT BIRAD LTD [...] BONE DENSITY/DEXA Routine 04/08/2024 12: 21 PM OUTBOARD SYSTEM OPERATOR Screening for osteoporosis MG SCREENING W MARIE BETHANY DIGI Routine 04/08/2024 12:15 PM OUTBOARD SYSTEM OPERATOR Screening mammogram for breast cancer URINE BACTERIA CULTURE Routine 03/26/2024 11:33 AM OUTBOARD SYSTEM OPERATOR Dysuria XR LUMB SPINE 3V Routine 03/26/2024 9:34 AM OUTBOARD SYSTEM OPERATOR Battery end of life of spinal cord stimulator Chronic bilateral low back pain, unspecified whether sciatica present URINALYSIS AUTO DIP Routine 03/26/2024 Dysuria CBC W/DIFF AUTOMATED Routine 03/12/2024 10:53 AM OUTBOARD SYSTEM OPERATOR Iron deficiency anemia, unspecified iron deficiency anemia type Chronic gastric ulcer with hemorrhage COLLECTION VENOUS BLOOD VENIPUNCTURE Routine 02/28/2024 11:14 AM OUTBOARD SYSTEM OPERATOR Type 2 diabetes mellitus with hyperglycemia, without long-term current use of insulin ([facility] HHS/HCC) CBC W/DIFF AUTOMATED Routine 02/28/2024 11:14 AM OUTBOARD SYSTEM OPERATOR Anemia, unspecified type COMPREHENSIVE METABOLIC PANEL Routine 02/28/2024 11:14 AM OUTBOARD SYSTEM OPERATOR Encounter to establish care LIPID PANEL Routine 02/28/2024 11:14 AM OUTBOARD SYSTEM OPERATOR Encounter to establish care Examination, medical, general TSH W/REFLEX Routine 02/28/2024 11:14 AM OUTBOARD SYSTEM OPERATOR Examination, medical, general VITAMIN D, 25 OH Routine 02/28/2024 11:1 4 AM OUTBOARD SYSTEM OPERATOR Vitamin D deficiency URINALYSIS, AUTO, COMPLETE Routine 02/28/2024 11:14 AM OUTBOARD SYSTEM OPERATOR Examination, medical, general HEPATITIS C ANTIBODY Routine 02/28/2024 11:14 AM OUTBOARD SYSTEM OPERATOR Need for hepatitis C screening test VITAMIN B-12 Routine 02/28/2024 11:14 AM OUTBOARD SYSTEM OPERATOR History of Bianca-en-Y gastric bypass FOLIC ACID SERUM Routine 02/28/2024 11:1 4 AM OUTBOARD SYSTEM OPERATOR History of Bianca-en-Y gastric bypass IRON SAT PANEL (IRON,IBC,%SAT) Routine 02/28/2024 11:14 AM OUTBOARD SYSTEM OPERATOR Anemia, unspecified type TRANSFERRIN Routine 02/28/2024 11:14 AM OUTBOARD SYSTEM OPERATOR Anemia, unspecified type FERRITIN Routine 02/28/2024 11:14 AM OUTBOARD SYSTEM OPERATOR Anemia, unspecified type ALBUMIN URINE RANDOM W/CREATININE Routine 02/28/2024 11:14 AM OUTBOARD SYSTEM OPERATOR Type 2 diabetes mellitus with hyperglycemia, without long-term current use of insulin (CMS/HCC HHS/HCC) HEMOGLOBIN, GLYCOSYLATED Routine 02/28/2024 11:14 AM OUTBOARD SYSTEM OPERATOR Type 2 diabetes mellitus with hyperglycemia, without [...] [facility] Comment: This drug testing is for medical [...] analytical performance characteristics have been determined by [employer]. It has not been cleared or approved by the FDA. This assay has been validated pursuant to the CLIA regulations and is used for clinical purposes. Healthcare Providers needing Interpretation assistance, please contact us at [phone] ( ) M-F, 8am to 10pm EST URINE SPECIMEN / Unknown 05/16/2024 9:14 AM CDT 05/17/2024 1:09 AM CDT Narrative Resulting Agency Comment Performing Organization Information: Site ID: [id number] Name: [facility] Address: [address] [place] [address] Director: Zane Sheppard Site ID: [id number] Name: [facility] Address: [address] [place] [address] Director: Tim Huynh MD Donna Bob NP URINE ORDERABLES Final Resu lt Performing Organization Address City/[facility]/ZIP Co de Phone Number [facility] [address] [place] [address] [employer] [facility] [address] [place] [address], * TRANSFERRIN (05/15/2024 9:39 AM CDT) Only the most recent of2 resultswithin the time period is included. TRANSFERRIN 279 200 - 360 mg/dL 05/15/2024 9:19 PM CDT [facility] 05/15/2024 9:39 AM CDT Donna Bob NP LABORATORY Final Resul t Performing Organization Address [facility] Co de Phone Number [facility] [address] [place] [address], [phone] * (ABNORMAL) FERRITIN (05/15/2024 9:39 AM CDT) Only the most recent of2 resultswithin the time period is included. FERRITIN 382.0(H) 8 - 252 NG/ML 05/15/2024 5:59 PM CDT [facility] 05/15/2024 9:39 AM CDT Donna Bob NP LABORATORY Final Resul t Performing Organization Address City/[facility]/ZIP Co de Phone Number [facility] [address] [place] [address], [place] [phone] * (ABNORMAL) HEMOGLOBIN, GLYCOSYLATED (05/15/2024 9:38 AM CDT) Only the most recent of2 resultswithin the time period is included. HGB A1C 6.0 4.5 - 6.2 % 05/15/2024 4:05 PM CDT [facility] ESTIMATED AVG GLUCOSE 126(H) 74 - 106 MG/DL 05/15/2024 4:05 PM CDT [facility] 05/15/2024 9:38 AM CDT Donna Bob NP LABORATORY Final Resul t Performing Organization Address [facility] Co de Phone Number [place] [address] [place] [address], [place] [phone] * IRON SAT PANEL (IRON,IBC,%SAT) (05/15/2024 9:38 AM CDT) Only the most recent of2 resultswithin the time period is included. IRON 138 50 - 170 MCG/DL 05/15/2024 3:28 PM CDT [facility] IRON BINDING CAPACITY 323 250 - 450 MCG/DL 05/15/2024 3:28 PM CDT [facility] IRON SATURATION 43 % 3:28 PM CDT [facility] Comment:REFERENCE RANGE NOT ESTABLISHED 05/15/2024 9:38 AM CDT us Donna Bob NP LABORATORY Final Resul t Performing Organization Address [facility] Co de Phone Number [facility] [address] [place] [address], [place] [phone] * (ABNORMAL) COMPREHENSIVE METABOLIC PANEL (05/15/2024 9:38 AM CDT) Only the most recent of2 resultswithin the time period is included. [facility] SODIUM S/P/B 137 136 - 145 MMOL/L 05/15/2024 3:28 PM CDT [facility] POTASSIUM S/P/B 4.0 3.5 - 5.1 MMOL/L 05/15/2024 3:28 PM CDT [facility] CHLORIDE S/P/B 96(L) 98 - 107 MMOL/L 05/15/2024 3:28 PM CDT [facility] CO2 30.4 21 - 32 MMOL/L 05/15/2024 3:28 PM CDT [facility] GLUCOSE 203(H) 70 - 99 MG/DL 05/15/2024 3:28 PM CDT [facility] BUN 10 7 - 18 MG/DL 05/15/2024 3:28 PM CDT [facility] CREATININE S/P/B 0.81 0.55 - 1.02 MG/DL 05/15/2024 3:28 PM CDT [facility] CALCIUM S/P/B 9.2 8.4 - 10.5 MG/DL 05/15/2024 3:28 PM CDT [facility] BILIRUBIN TOTAL S/P/B 1.1(H) 0.2 - 1.0 MG/DL 05/15/2024 3:28 PM CDT [facility] ALKALINE PHOSPHATASE S/P/B 433(H) 41 - 108 U/L 05/15/2024 3:28 PM CDT [facility] AST 52(H) 15 - 37 U/L 05/15/2024 3:28 PM CDT [facility] ALT 122(H) 14 - 59 U/L 05/15/2024 3:28 PM CDT [facility] TOTAL PROTEIN S/P/B 7.3 6.4 - 8.2 G/DL 05/15/2024 3:28 PM CDT [facility] ALBUMIN S/P/B 3.9 3.4 - 5.0 G/DL 05/15/2024 3:28 PM CDT [facility] ANION GAP 10.6 5 - 15 MMOL/L 05/15/2024 3:28 PM CDT [facility] Comment:REFERENCE RANGE NOT ESTABLISHED OSMOLALITY (CALC) 289 MOSM/KG 025 3:28 PM CDT [facility] Comment:REFERENCE RANGE NOT ESTABLISHED GFR ESTIMATE 87(L) >90 ML/MIN/1. 73 M2 05/15/2024 3:28 PM CDT [facility] GFR NOTES GFR REFERENCE S: 05/15/2024 3:28 PM CDT [facility] Comment: THE ESTIMATED GFR IS CALCULATED USING [...] Donna Bob NP LABORATORY Final Resul t [facility] [place] [address] [place] [address], * (ABNORMAL) CBC W/DIFF AUTOMATED (05/15/2024 9:38 AM CDT) Only the most recent of3 resultswithin the time period is included. WBC 3.97(L) 4.00 - 10.80 x10'3/uL 05/15/2024 6:36 PM CDT [facility] RBC 5.58(H) 4.10 - 5.40 x10'6/uL 05/15/2024 6:36 PM CDT [facility] HGB 13.6 12.0 - 16.0 G/DL 05/15/2024 6:36 PM CDT [facility] HCT 43.5 36.0 - 47.0 % 05/15/2024 6:36 PM CDT [facility] MCV 78.0 78.0 - 100.0 FL 05/15/2024 6:36 PM CDT [facility] MCH 24.4(L) 27.0 - 31.0 PG 05/15/2024 6:36 PM CDT [facility] MCHC 31.3(L) 33.0 - 36.0 G/DL 05/15/2024 6:36 PM CDT [facility] PLT 409(H) 150 - 350 x10'3/uL 05/15/2024 6:36 PM CDT [facility] MPV 9.6 7.4 - 10.4 FL 05/15/2024 6:36 PM CDT [facility] DIFFERENTIAL TYPE AUTOMATED DIFFERENTIAL 05/15/2024 7:20 PM CDT [facility] SEG NEUTROPHILS 61.8 % 7:20 PM CDT [facility] LYMPHOCYTES 27.0 % 05/15/2024 7:20 PM CDT [facility] MONOCYTES 10.1 % 05/15/2024 7:20 PM CDT [facility] EOSINOPHILS 0.0 % 05/15/2024 7:20 PM CDT [facility] BASOPHILS 0.8 % 05/15/2024 7:20 PM CDT [facility] IMMATURE GRANS % 0.3 % 05/16/19 7:20 PM CDT [facility] ABS. NEUTROPHILS 2.46 1.60 - 8.30 x10'3/uL 05/15/2024 7:20 PM CDT [facility] ABS. LYMPHOCYTES 1.07 0.80 - 4.70 x10'3/uL 05/15/2024 7:20 PM CDT [facility] ABS. MONOCYTES 0.40 0.00 - 1.50 x10'3/uL 05/15/2024 7:20 PM CDT [facility] ABS. EOSINOPHILS 0.00 0.00 - 0.40 x10'3/uL 05/15/2024 7:20 PM CDT [facility] ABS. BASOPHILS 0.03 0.00 - 0.20 x10'3/uL 05/15/2024 7:20 PM CDT [facility] ABS. IMMATURE GRANULOCYTES 0.01 0.00 - 0.03 x10'3/uL 05/15/2024 7:20 PM CDT [facility] ABS. NUCLEATED RBC'S 0.00 0.00 - 0.01 x10'3/uL 05/15/2024 7:20 PM CDT [facility] NRBC % 0.0 % 05/15/2024 7:20 PM CDT [facility] RBC MORPHOLOGY SLIDE REVIEWED 2024 7:20 PM CDT [facility] ANISO MODERATE 05/15/2024 7:20 PM CDT [facility] POIKLO MODERATE 05/15/2024 7:20 PM CDT [facility] HYPOCHROMASIA SLIGHT 05/15/2024 7:20 PM CDT [facility] MICRO SLIGHT 05/15/2024 7:20 PM CDT [facility] POLY MODERATE 05/15/2024 7:20 PM CDT [facility] OVALOCYTES PRESENT 05/15/2024 7:20 PM CDT [facility] TARGET CELLS PRESENT 05/15/2024 7:20 PM CDT [facility] ACANTHOCYTES PRESENT 05/15/2024 7:20 PM CDT [facility] PLT EST. INCREASED 05/15/2024 7:20 PM CDT [facility] 05/15/2024 9:38 AM CDT us Donna Bob BILL CHECKER LABORATORY Final Resul t [facility] [address] [place] [address], [id number] * BREAST LT Section 101AD LTD (05/12/2024 9:58 AM CDT) Anatomical Region [...] 9:53 AM Narrative 05/12/2024 10:06 AM CDT [facility] [place] [address] Examination: Diagnostic bilateral mammogram and left breast ultrasound [id number] Exam Date/Time: 05/12/2024 9:03 AM Reason For [...] Procedure Note Stuart Arce MD - 05/12/2024 [facility] [address] [place] [address] Examination: Diagnostic bilateral mammogram and left breast ultrasound [id number] Exam Date/Time: 05/12/2024 9:03 AM Reason For [...] Arce, 05/12/2024 9:53 AM us Donna Bob BILL CHECKER ULTRASOUND Final Resul t * MG DIAG [...] 9:53 AM Narrative 05/12/2024 10:06 AM CDT [facility] [address] [place] [address] Examination: Diagnostic bilateral mammogram and left breast ultrasound [id number] Exam Date/Time: 05/12/2024 9:03 AM Reason For [...] No specific follow-up necessary. us Donna Bob BILL CHECKER MAMMO Final Resul t * CT LUMB [...] 8:28 AM Narrative 04/24/2024 8:43 AM CDT [facility] [address] [place] [address] EXAMINATION:L[address] without contrast 04/21/2024 INDICATION:Chronic back [...] Procedure Note Erick Li MD - 04/24/2024 [facility] [address] [facility] [place] [address] EXAMINATION:Lumbar CT without contrast 04/21/2024 INDICATION:Chronic back [...] Li MD, 04/24/2024 8:28 AM Donna Bob BILL CHECKER CT Final Resul t * BONE DENSITY/DEXA (04/08/2024 12:21 PM OUTBOARD SYSTEM OPERATOR) Anatomical Region Laterality Modality Bone Bone Density 04/09/2024 5:54 AM OUTBOARD SYSTEM OPERATOR Impressions 04/09/2024 5:55 AM OUTBOARD SYSTEM OPERATOR IMPRESSION: WHO Classification: Osteoporosis RECOMMENDATIONS: All patients [...] 04/09/2024 5:54 AM Narrative 04/09/2024 5:55 AM OUTBOARD SYSTEM OPERATOR [facility] [address] [place] [address] EXAMINATION: BONE DENSITY/DEXA INDICATIONS: Screening for osteoporosis [...] Procedure Note Iglesia Bright MD - 04/09/2024 [facility] [address] [place] [address] EXAMINATION: BONE DENSITY/DEXA INDICATIONS: Screening for osteoporosis [...] MD, 04/09/2024 5:54 AM us Donna Bob BILL CHECKER DEXA Final Resul t * MG SCREENING W MARIE BETHANY DIGI (04/08/2024 12:15 PM OUTBOARD SYSTEM OPERATOR) Anatomical Region Laterality Modality Breast Bilateral Mammography [...] 7:28 AM Narrative 04/25/2024 7:33 AM CDT [facility] [address] [place] [address] Examination: Screening bilateral mammogram Exam Date/Time: 04/08/2024 [...] * URINE BACTERIA CULTURE (03/26/2024 11:33 AM OUTBOARD SYSTEM OPERATOR) SPEC DESCRIPTION URINE CLEAN CATCH 03/26/2024 11:34 AM OUTBOARD SYSTEM OPERATOR [facility] SPECIAL REQUESTS NO SPECIAL REQUEST 03/26/2024 11:34 AM OUTBOARD SYSTEM OPERATOR [facility] CULTURE RESULT NO GROWTH (< OR = 1,000 CFU/ML) 03/28/2024 11:37 AM OUTBOARD SYSTEM OPERATOR [facility] URINE SPECIMEN OBTAINED BY CLEAN CATCH PROCEDURE / Unknown 03/26/2024 11:33 AM OUTBOARD SYSTEM OPERATOR 03/26/2024 5:25 PM OUTBOARD SYSTEM OPERATOR Donna Bob NP MICROBIOLOGY - GENERAL ORDE RABLES Final Result [facility] [address] [place] [address], [id number] * XR LUMB SPINE 3V (03/26/2024 9:34 AM OUTBOARD SYSTEM OPERATOR) Anatomical Region Laterality Modality Spine Radiographic Susannah ging 03/28/2024 7:59 PM OUTBOARD SYSTEM OPERATOR Impressions 03/28/2024 8:02 PM OUTBOARD SYSTEM OPERATOR IMPRESSION: 1. Post surgical and multilevel degenerative changes in the lumbar spine, as above. Ordered By: DONNA BOB Interpreted By: Wild Watson MD, 03/28/2024 7:59 PM Narrative 03/28/2024 8:02 PM OUTBOARD SYSTEM OPERATOR [facility] - [address] [address] Examination: X-ray lumbar spine, 3 views. Exam [...] Procedure Note Wild Watson MD - 03/28/2024 [facility] [place] [address] Examination: X-ray lumbar spine, 3 views. Exam [...] COLOR (U) YELLOW YELLOW MG[address], [facility] TRANSPARENCY CLEAR CLEAR MG[address], ORIENT GLUCOSE (U) 250 mg/dl(A) NEGATIVE MG/DL MG-[address], ORIENT BILIRUBIN (U) TRACE(A) NEGATIVE MG-[address], ORIENT KETONES MG/DL (U) 5 (TRACE)(A) NEGATIVE MG/DL MG-[address], ORIENT SPECIFIC GRAVITY (U) 1.020 1.001 - 1.035 MG-[address], ORIENT BLOOD (U) NEGATIVE NEGATIVE MG-[address], ORIENT U PH 7.0 5.0 - 9.0 MG[address], ORIENT PROTEIN (U) NEGATIVE NEGATIVE mg/dL MG-[address], ORIENT UROBILINOGEN 2.0(A) 0.2 - 1.0 EU/dL = mg/dL MG-[address], ORIENT NITRITES NEGATIVE NEGATIVE MG/DL MG-[address], ORIENT LEUKOCYTES (U) NEGATIVE NEGATIVE MG-[address], ORIENT URINE SPECIMEN OBTAINED BY CLEAN CATCH PROCEDURE / Unknown 03/26/2024 Donna Bob NP URINE ORDERABLES Final Resu lt Performing Organization Address City/[facility]/ZIP Co de Phone Number MG[address], [place] [address] [place] [address], * TSH W/REFLEX (02/28/2024 11:14 AM OUTBOARD SYSTEM OPERATOR) TSH 1.017 0.358 - 3.740 uIU/ML 02/28/2024 3:46 PM OUTBOARD SYSTEM OPERATOR MG-DEENA NOONAN 02/28/2024 11:1 4 AM OUTBOARD SYSTEM OPERATOR Donna Bob NP LABORATORY Final Resul t [facility] [place] [address] [place] [address], * (ABNORMAL) URINALYSIS (02/28/2024 11:14 AM OUTBOARD SYSTEM OPERATOR) COLOR (U) YELLOW 02/28/2024 3:19 PM [facility] TRANSPARENCY CLEAR CLEAR 02/28/2024 3:19 PM OUTBOARD SYSTEM OPERATOR [facility] SPECIFIC GRAVITY (U) 1.015 1.003 - 1.040 02/28/2024 3:19 PM OUTBOARD SYSTEM OPERATOR [facility] U PH 6.5 5.0 - 9.0 02/28/2024 3:19 PM OUTBOARD SYSTEM OPERATOR [facility] PROTEIN RANDOM (U) NEGATIVE NEGATIVE 02/28/2024 3:19 PM [facility] GLUCOSE (U) TRACE(A) NEGATIVE 02/28/2024 3:19 PM [facility] KETONES MG/DL (U) TRACE(A) NEGATIVE 02/28/2024 3:19 PM [facility] BILIRUBIN (U) 1+(A) NEGATIVE 02/28/2024 3:19 PM [facility] BLOOD (U) NEGATIVE NEGATIVE 02/28/2024 3:19 PM [facility] UROBILINOGEN 4.0(H) 0.0 - 2.0 EU/DL 02/28/2024 3:19 PM [facility] NITRITES NEGATIVE NEGATIVE 02/28/2024 3:19 PM [facility] LEUKOCYTES (U) TRACE(A) NEGATIVE 02/28/2024 3:19 PM [facility] RBC/HPF 0-3 0 - 3 /HPF 02/28/2024 3:19 PM [facility] WBC/HPF 0-3 0 - 3 /HPF 02/28/2024 3:19 PM OUTBOARD SYSTEM OPERATOR [facility] EPI/HPF 4-9 /HPF 02/28/2024 3:19 PM OUTBOARD SYSTEM OPERATOR [facility] BACTERIA (U) NONE SEEN NONE SEEN 02/28/2024 3:19 PM OUTBOARD SYSTEM OPERATOR [facility] URINE SPECIMEN OBTAINED BY CLEAN CATCH PROCEDURE / Unknown 02/28/2024 11:14 AM OUTBOARD SYSTEM OPERATOR Donna Bob NP URINE ORDERABLES Final Resu lt Performing Organization Address [facility]/ZIP Co de Phone Number [facility] [address] [place] [address], [place] [phone] * VITAMIN B-12 (02/28/2024 11:14 AM OUTBOARD SYSTEM OPERATOR) VITAMIN B12 S/P/B 657 193 - 986 PG/ML 02/28/2024 3:46 PM OUTBOARD SYSTEM OPERATOR [facility] 02/28/2024 11:1 4 AM OUTBOARD SYSTEM OPERATOR us Donna Bob NP LABORATORY Final Resul t Performing Organization Address [facility]/ZIP Co de Phone Number [address] [address], [place] [phone] * ALBUMIN URINE RANDOM W/CREATININE (02/28/2024 11:14 AM OUTBOARD SYSTEM OPERATOR) MICROALBUMIN (U) 11.6 <20 MG/L 02/27/19 25 3:36 PM OUTBOARD SYSTEM OPERATOR [facility] CREATININE RANDOM (U) 121.3 MG/DL 02/28/2024 3:36 PM OUTBOARD SYSTEM OPERATOR [facility] ALBUMIN/CREAT RATIO 9.6 <30 MG/G 02/28/2024 3:36 PM OUTBOARD SYSTEM OPERATOR [facility] URINE SPECIMEN / Unknown 02/28/2024 11:14 AM OUTBOARD SYSTEM OPERATOR Donna Bob NP URINE ORDERABLES Final Resu lt [facility] [place] [address] [place] [address], [place] [phone] * (ABNORMAL) LIPID PANEL (02/28/2024 11:14 AM OUTBOARD SYSTEM OPERATOR) CHOLESTEROL 175 <200 MG/DL 02/28/2024 3:46 PM OUTBOARD SYSTEM OPERATOR [facility] TRIGLYCERIDES 68 <150 MG/DL 02/28/2024 3:46 PM OUTBOARD SYSTEM OPERATOR [facility] HDL 61 >40 MG/DL 02/28/2024 3:46 PM OUTBOARD SYSTEM OPERATOR [facility] LDL-C 100(H) <100 MG/DL 02/28/2024 3:46 PM OUTBOARD SYSTEM OPERATOR [facility] VLDL CALCULATION 14 5 - 28 MG/DL 02/28/2024 3:46 PM OUTBOARD SYSTEM OPERATOR [facility] CHOL/HDL RATIO 2.9 0.0 - 4.0 02/28/2024 3:46 PM OUTBOARD SYSTEM OPERATOR [facility] LDL/HDL 1.6 0.41 - 2.13 02/28/2024 3:46 PM OUTBOARD SYSTEM OPERATOR [facility] NON HDL CHOLESTEROL 114 <140 MG/DL 02/28/2024 3:46 PM OUTBOARD SYSTEM OPERATOR [facility] 02/28/2024 11:1 4 AM OUTBOARD SYSTEM OPERATOR Donna Bob NP LABORATORY Final Resul t [facility] [place] [id number] [place] [address], [place] [phone] * HEPATITIS C ANTIBODY (02/28/2024 11:14 AM OUTBOARD SYSTEM OPERATOR) HEPATITIS C AB NON-REACTI VE NON-REACT GUY 02/28/2024 7:33 PM OUTBOARD SYSTEM OPERATOR [facility] Comment: ANTIBODIES TO HCV NOT DETECTED. DOES NOT EXCLUDE THE POSSIBILITY OF EXPOSURE TO HCV. 02/28/2024 11:1 4 AM OUTBOARD SYSTEM OPERATOR Donna Bob NP LABORATORY Final Resul t Performing Organization Address City/[facility]/ZIP Co de Phone Number [facility] [address] [place] [address], [place] [phone] * FOLIC ACID SERUM (02/28/2024 11:14 AM OUTBOARD SYSTEM OPERATOR) FOLATE >20.0 8.6 - 58.9 NG/ML 02/28/2024 3:33 PM OUTBOARD SYSTEM OPERATOR [facility] 02/28/2024 11:1 4 AM OUTBOARD SYSTEM OPERATOR Donna Bob NP LABORATORY Final Resul t Performing Organization Address [facility] Co de Phone Number [address] [address], [place] [phone] * (ABNORMAL) VITAMIN D, 25 OH (02/28/2024 11:14 AM OUTBOARD SYSTEM OPERATOR) VITAMIN D 25 HYDROXY TOTAL S/P/B 27.8(L) 30 - 100 NG/ML 02/28/2024 3:46 PM OUTBOARD SYSTEM OPERATOR [facility] Comment: DEFICIENT <20 INSUFFICIENT 20-30 SUFFICIENT 30-100 02/28/2024 11:1 4 AM OUTBOARD SYSTEM OPERATOR us Donna Bob NP LABORATORY Final Resul t Performing Organization Address City/[facility] Co de Phone Number [address] [address], [place] [phone] from Last 3 Months Insurance [employer] Care Teams Beef Skinner Relationship Specialty Start Date End Date Donna Bob, RODRIGO [address] [facility] [address] [place] [address] PCP - General NURSE PRACTITIONER 02/25/24
[2024-05-22] MEDS: ACETAMINOPHEN 500 MG TABLET 1000 MG PO (07:44)
[2024-05-22] MEDS: LIDOCAINE 5% PATCH 1 PATCH TRANSDERM (07:46)
[2024-05-22] MEDS: HYDROmorphone HCL INJ (*CRX) 1 MG/ML SYR 0.5 MG IV PUSH ×2 (07:46→08:18)
--- NOTE | 2024-05-22 07:48 | ED_ITS ---
HPI - General Adult General Chief complaint: Fall Stated complaint: fall, rib pain Time Seen by Provider: 05/22/24 06:58 History of Present Illness HPI narrative: This is a 53-year-old female with history narcolepsy, HTN, DM, Osteoporosis presenting after a fall. She got up this morning to use the restroom and when she was in the bathroom she felt dizzy and lightheaded. She fell to the right side landing on the side of toilet striking her ribs. She now has exquisite pain on the right side of her chest that is worse with deep inspiration. She denies head trauma. She denies any chest pain palpitations or shortness of breath prior to fall. Patient says is not uncommon for her to be dizzy and lightheaded. No use of blood thinners. Patient has issues with chronic pain. Related Data Allergies Allergy/AdvReac Type Severity Reaction Status Date / Time codeine Allergy Rash Verified 05/22/24 06:41 meperidine (From Demerol) Allergy Rash Verified 05/22/24 06:41 NSAIDS (Non-Steroidal Allergy Rash Verified 05/22/24 06:41 Anti-Inflamma Sulfa (Sulfonamide Allergy Rash Verified 05/22/24 06:41 Antibiotics) [facility] Past Medical History Medical History Neuropathy Surgical History Surgical History History of back surgery Social History Social History Social History: Moved back to [place] in Nov 2022 after having lived in [place] for several years Smoking status: Unknown if ever smoked Living arrangements: with family Additional living arrangements comments: lives with Exam 2 Narrative: APPEARANCE: Patient is in pain Head: atraumatic. EYES: EOMI, NOSE: Atraumatic NECK: Trachea midline RESPIRATORY: Tachypneic, shallow breathing CARDIOVASCULAR: RRR, no peripheral edema ABDOMINAL: Non-distended soft nontender no guarding rebound MUSCULOSKELETAl: Head to toe trauma exam performed, exquisite tenderness of the right side of the thorax, no other areas of tenderness or deformity. NEURO: Alert. Moving 4/4 extremities SKIN:: Warm, dry. Normal color PSYCHIATRIC: Normal affect Course Vital Signs Vital signs: Vital Signs Temperature 97.4 F L 05/22/24 06:36 Pulse Rate 132 H 05/22/24 06:36 Respiratory Rate 24 H 05/22/24 06:36 Blood Pressure 123/99 H 05/22/24 06:36 Pulse Oximetry 100 05/22/24 06:36 Oxygen Delivery Room Air 05/22/24 06:36 Temperature 98.2 F 05/22/24 09:43 Pulse Rate 109 H 05/22/24 10:30 Respiratory Rate 20 05/22/24 10:30 Blood Pressure 170/99 H 05/22/24 10:30 Pulse Oximetry 96 05/22/24 10:30 Oxygen Delivery Room Air 05/22/24 09:43 Oxygen Flow Rate 2 05/22/24 09:17 Procedures Chest Tube Chest Tube 1: Chest Tube Date: 05/22/24 Chest Tube Location: right, mid axillary line and fourth interspace Tube Type: standard Chest Tube Prep: Yes betadine prep and sterile drapes applied Anesthetic: bupivacaine 0.25% Amount of anesthesia used (mL): 5 Incision Made With: #11 blade Procedure: incision/open Post Procedure: sutured to skin, sterile dressing applied and connected to Pluero Vac Tube Drainage: grier of air Post Procedure CXR?: Yes Post Procedure: post CXR reviewed and placement appropriate Patient Tolerated Procedure: Yes Procedural Sedation Procedural Sedation #1: Procedural Sedation Date: 05/22/24 Provider Performed: sedation and procedure Informed Consent Obtained: yes Equipment in Room: bag and mask, capnography, monitor technician, crash cart, oxygen, pulse oximeter and suction Plan for Sedation: moderate sedation ASA Class: II Mallampati Classification: class I NPO Status: last solid food (hours ago) and last liquid food (hours ago) Explanation to Patient/Family: Risk/Benefits/Alternatives and Pt/Family agreed with plan Pt. Educated on Procedural Sedation: Yes Re-evaluated immediately prior: Yes Preparation: monitor technician applied, pulse oximeter, capnometry used, supplemental O2 applied, reversal agents at bedside, suction/airway equipment at bedside and IV secured Ketamine: IV Ketamine dose (mg): 65 (65 mg x 4 doses) Patient Tolerated Procedure: well Complications: none Additional Comments: Patient was very resistant to ketamine sedation. She required x4 65 mg doses over the course of the procedure. No other complications Medical Decision Making MDM Narrative Medical decision making narrative: -Course: 53-year-old female presenting after a ground level fall. Found to have fractures ribs 7 through 12. She has a small pneumothorax. A chest tube was placed. Of note the patient required multiple doses of ketamine to acquire adequate sedation but had no other complications during the procedure. Patient was transferred to [facility] ED to ED and accepted under Dr. Roberts. Vital Signs Vital Signs: Vital Signs Temperature 97.4 F L 05/22/24 06:36 Pulse Rate 132 H 05/22/24 06:36 Respiratory Rate 24 H 05/22/24 06:36 Blood Pressure 123/99 H 05/22/24 06:36 Pulse Oximetry 100 05/22/24 06:36 Oxygen Delivery Room Air 05/22/24 06:36 Temperature 98.2 F 05/22/24 09:43 Pulse Rate 109 H 05/22/24 10:30 Respiratory Rate 20 05/22/24 10:30 Blood Pressure 170/99 H 05/22/24 10:30 Pulse Oximetry 96 05/22/24 10:30 Oxygen Delivery Room Air 05/22/24 09:43 Oxygen Flow Rate 2 05/22/24 09:17 Lab Data 05/22/24 06:56 05/22/24 06:56 Labs: Lab Results 05/22/24 05/22/24 05/22/24 Range/Units 06:56 07:39 10:31 WBC 15.7 H (4.5-10.0) K/mm3 RBC 5.31 (4.2-5.4) M/mm3 Hgb 13.2 (12.0-15.0) g/dL Hct 42.7 (37.0-47.0) % MCV 80.4 (80-100) fl MCH 24.9 L (26-34) pg MCHC 30.9 L (32-36) g/dl RDW TNP Plt Count 391 H (150-375) k/mm3 MPV 9.3 (7.4-10.4) fl Immature Gran % (Auto) 0.9 H (0-0.5) % Neut % (Auto) 77.5 H (45.5-73.1) % Lymph % (Auto) 16.0 L (18.3-44.2) % Jennings % (Auto) 5.0 (2.6-8.5) % Eos % (Auto) 0.2 (0-4.4) % Baso % (Auto) 0.4 (0.2-1.2) % Lymph # (Auto) 2.51 (0.9-3.2) K/mm3 Jennings # (Auto) 0.8 H (0.1-0.6) K/mm3 Eos # (Auto) 0.0 (0-0.3) K/mm3 Baso # (Auto) 0.1 (0.0-0.1) K/mm3 Abs Immat Gran (auto) 0.14 H (0.00-0.031) K/mm3 Absolute Neuts (auto) 12.2 H (1.3-6.7) K/mm3 Absolute Nucleated RBC 0.000 (0.0-0.012) K/mm3 Band Neutrophils % Not Reportable Nucleated RBC % 0.0 (0.0-0.2) % Platelet Estimate Increased (Adequate) Hypochromasia 1+ Microcytosis 1+ (NORMAL) Schistocytes None seen PT 12.5 (11.1-14.7) Seconds INR 0.9 APTT 24.2 (22.3-36.8) Seconds Sodium 136 L (137-145) mmol/L Potassium 3.4 (3.4-5.0) mmol/L Chloride 95 L (98-107) mmol/L Carbon Dioxide 22 (22-30) mmol/L Anion Gap 19 H (4-12) mmol/L BUN 16 (7-17) mg/dL Creatinine 1.03 H (0.7-1.0) mg/dL Estim Creat Clear Calc 47 ml/min Estimated GFR 56 L (59 - ) Glucose 224 H (65-110) mg/dL Calcium 8.6 (8.4-10.2) mg/dL Total Bilirubin 1.0 (0.2-1.3) mg/dL AST 198 H (14-36) U/L ALT 158 H (6-35) U/L Alkaline Phosphatase 679 H (38-126) U/L Troponin I 0.013 < 0.012 (0.000-0.034) ng/mL NT-Pro-B Natriuret Pep 143 H (19.9-100) pg/mL Total Protein 7.0 (6.3-8.2) g/dL Albumin 4.3 (3.5-5.1) g/dL Discharge Plan Discharge Clinical Impression: Multiple rib fractures Patient Disposition: Acute Care Hospital Condition: Guarded Prognosis Patient Language: Sami Prescriptions: No Action (DME) sanjay Leahy See Rx Instructions .Route Qty: 1 0RF Rx Instructions: As directed hydrocodone-acetaminophen 5-325 mg tablet 1 tablet PO Q6H PRN (Reason: pain) 3 Days Qty: 12 0RF Follow-up/Referrals: Josephine,Donna Joseph, [facility] [Primary Care Provider] -
[2024-05-22 08:04] LABS: NT Pro B Type Natriuretic Pept 143 pg/mL (19.9-100); Troponin I 0.013 ng/mL (0.000-0.034)
[2024-05-22 08:44] LABS: INR 0.9; Prothrombin Time 12.5 Seconds (11.1-14.7)
[2024-05-22 08:46] LABS: Partial Thromboplastin Time 24.2 Seconds (22.3-36.8)
[2024-05-22] MEDS: KETAMINE HCL (*CRX) 500 MG/10 ML VIAL (08:53)
[2024-05-22] MEDS: SODIUM CHLORIDE 0.9% IV 1,000 ML 999 ML (08:53)
[2024-05-22] MEDS: MIDAZOLAM HCL (*CRX) 2 MG/2 ML VIAL (09:09)
[2024-05-22] MEDS: BUPivacaine HCL 0.25% PF 30 ML VIAL (09:14)
[2024-05-22] MEDS: HYDROmorphone HCL INJ (*CRX) 1 MG/ML SYR ×2 (09:43→10:39)
[2024-05-22] MEDS: KETOROLAC 15 MG/ML VIAL (*BKC) (09:43)
--- NOTE | 2024-05-22 09:46 | PC.NURSE ---
for chest tube insertion: 0853 65mg of ketamine IV push ay EDP 0856 65mg of ketamine IV push by EDP 0902 65mg of ketamine IV push by EDP 0909 versed IV push by RN 0913 65mg of ketamine IV push by EDP 0914 bupurion administered by EDP 0933 Toradol 15mg IV push by RN. EDP gave verbal order 0933 Dilaudid 0.5 mg IV push by RN. EDP gave verbal order
[2024-05-22] MEDS: ceFAZolin 2 GM/D5W 50 ML 2 GM/50 ML BAG IVPB (09:57)
--- NOTE | 2024-05-22 10:10 | PC.NURSE ---
pt said she was in pain. EDP gave a verbal order for 0.5mg of diluadid IV
[2024-05-22] MEDS: ONDANSETRON INJ 4 MG/2 ML VIAL IV PUSH (10:54)
[2024-05-22 11:11] LABS: Troponin I < 0.012 ng/mL (0.000-0.034)
== END 2024-05-22 11:16 | disposition short-term general hospital (02) ==
LOC: ANHED 07:38
PROVIDERS: Emergency Medicine; Emergency Provider Emergency Medicine; PCP Nurse Practitioner
DX: S22.41XA Multiple fractures of ribs, right side, initial encounter for closed fracture (principal); I10 Essential (primary) hypertension; E11.9 Type 2 diabetes mellitus without complications; M81.0 Age-related osteoporosis without current pathological fracture; G62.9 Polyneuropathy, unspecified; G47.419 Narcolepsy without cataplexy; W01.198A Fall on same level from slipping, tripping and stumbling with subsequent striking against other object, initial encounter
CPT/HCPCS: 32551; 36415; 70450; 71046; 71260; 74177; 80053; 83880; 84484; 85025; 85610; 85730; 93005; 96374; 96375; 96376; 99285; A9270; C1729; J0690; J1171; J1885; J2250; J2405; J7030; Q9967